=== PATIENT | female | born 1950 | race African-American/Black ===

== ENCOUNTER 2017-01-18 12:17 | Emergency (ER) | payer MEDICARE, OTHER ==
[~2017-01-18] VITALS: Ht 167.6 cm; Wt 59.6 kg
[~2017-01-18 12:17] MED LIST: CIPR500T4 PO; DIAZ5SOL PO; HYDR-3498 PO
[2017-01-18 12:23] VITALS: Ht 167.6 cm; Wt 59.6 kg
[2017-01-18] MEDS ORDERED: traMADol 50 MG TAB PO ONE (15:00)
[2017-01-18 15:18] LABS: ADD UMIC NO; URINE BILIRUBIN (Dip) NEGATIVE (NEGATIVE); URINE BLOOD (Dip) NEGATIVE (NEGATIVE); URINE COLOR YELLOW (YELLOW); URINE GLUCOSE (Dip) NEGATIVE (NEGATIVE); URINE KETONES (Dip) NEGATIVE (NEGATIVE); URINE LEUKOCYTE ESTERASE (Dip) NEGATIVE (NEGATIVE); URINE NITRITE (Dip) NEGATIVE (NEGATIVE); URINE TOTAL PROTEIN (Dip) NEGATIVE (NEGATIVE); URINE UROBILINOGEN (Dip) 1.0 E.U./dL (0.1-1.0)
--- NOTE | 2017-01-18 15:21 | RADRPT ---
PROCEDURE: XR Chest. CLINICAL INDICATION: Chest pain TECHNIQUE: Single frontal view of the chest was obtained. COMPARISON: None FINDINGS: The heart is within normal limits. The thoracic aorta is calcified. There is mild right lower lobe linear atelectasis. The lungs are otherwise clear. There is no pleural effusion or pneumothorax. RPTAT: AA IMPRESSION: No acute disease. Calcified aorta consistent with atherosclerotic disease. Mild right lower lobe linear atelectasis. .Lucien Simpson MD, MD Date Time Electronically viewed and signed by .Lucien Simpson MD, on 01/18/2017 15:20 .S/
[2017-01-18 15:25] LABS: D-DIMER 574.05 ng/ml (<460)
[2017-01-18 17:03] LABS: ADD SCAN DIFF NO
[2017-01-18 17:05] LABS: BASOPHILS % 0.5 % (0.0-2.0); EOSINOPHILS # 0.2 10^3/ul (0.0-0.5); EOSINOPHILS % 2.4 % (0.0-7.0); HEMATOCRIT 42.3 % (37.0-47.0); HEMOGLOBIN 14.3 g/dl (12.0-16.0); LYMPHOCYTES # 2.1 10^3/ul (0.8-2.9); LYMPHOCYTES % 32.2 % (15.0-51.0); MEAN CORPUSCULAR HEMOGLOBIN 31.5 pg (29.0-33.0); MEAN CORPUSCULAR HGB CONC 33.8 g/dl (32.0-37.0); MEAN CORPUSCULAR VOLUME 93.2 fl (82.0-101.0); MEAN PLATELET VOLUME 10.9 fl (7.4-10.4); MONOCYTE # 0.8 10^3/ul (0.3-0.9); MONOCYTES % 12.1 % (0.0-11.0); NEUTROPHIL # 3.5 10^3/ul (1.6-7.5); NEUTROPHILS % 52.6 % (39.0-77.0); PLATELET COUNT 186 10^3/UL (140-415); RED BLOOD COUNT 4.54 10^6/ul (4.20-5.40); RED CELL DISTRIBUTION WIDTH 12.3 % (11.5-14.5); WHITE BLOOD COUNT 6.6 10^3/ul (4.8-10.8)
[2017-01-18 17:27] LABS: ALBUMIN 4.5 g/dl (3.3-4.9); ALBUMIN/GLOBULIN RATIO 1.36; BILIRUBIN,INDIRECT 0.2 mg/dl (0-1.1); BILIRUBIN,TOTAL 0.2 mg/dl (0.2-1.3); CALCIUM 9.2 mg/dl (8.4-10.2); CREATININE 0.73 mg/dl (0.44-1.00); POTASSIUM 4.6 mmol/L (3.5-5.1); TOTAL PROTEIN 7.8 g/dl (6.1-8.1)
--- NOTE | 2017-01-18 17:39 | ERD ---
ER Documentation Chief Complaint Date/Time DATE: 01/18/17 TIME: 17:36 Chief Complaint MID BACK PAIN 8/10 X 4DAYS (АННА JUAREZ PA-C) HPI Patient is a 66-year-old female with a past medical history of hepatitis C and DVT who presents to the ED with left upper back pain that started 1 week ago. She states that the pain has gotten worse. She states it is an 8 out of 10. She states that "I feel I have a clot in my back." She denies shortness of breath or difficulty breathing. She denies headache or dizziness. She states that she has difficulty moving her arms. She feels that there is something inside. Denies bowel or bladder incontinence. Denies trauma. Denies leg pain or leg swelling. Denies recent travel or recent surgeries. (АННА JUAREZ PA-C) ROS All systems reviewed and are negative except as per history of present illness. (АННА JUAREZ PA-C) Medications Home Meds Active Scripts Naproxen* (Naprosyn*) 500 Mg Tablet, 500 MG PO BID Y for PAIN AND/OR INFLAMMATION, #30 TAB Prov:АННА JUAREZ PA-C 01/18/17 Tramadol HCl (Tramadol HCl) 50 Mg Tablet, 50 MG PO Q6 Y for PAIN, #10 TAB Prov:АННА JUAREZ PA-C 01/18/17 Hydrocodone Bit-Acetaminophen* ([place]*) 5-325 Mg Tab, 1 TAB PO Q6 Y for PAIN, # 20 TAB Prov:MAURICIO POWELL DO 11/15/15 Ciprofloxacin Hcl* (Ciprofloxacin Hcl*) 500 Mg Tablet, 500 MG PO BID for 14 Days , TAB Prov:MAURICIO POWELL DO 11/15/15 Reported Medications Diazepam* (Diazepam*) 5 Mg/5 Ml Elixir, 5 MG PO BID, ML 11/15/15 Allergies Allergies: Coded Allergies: Iron Analogues (Verified Allergy, Mild, 11/15/15) PMhx/Soc History of Surgery: Yes (Tubal uterine surgeries) Anesthesia Reaction: No Hx Neurological Disorder: No Hx Respiratory Disorders: No Hx Cardiac Disorders: No Hx Psychiatric Problems: No Hx Miscellaneous Medical Probl: Yes (Hepatitis C) Hx Alcohol Use: No Hx Substance Use: Yes (Past history of cocaine) Hx Tobacco Use: No Smoking Status: Never smoker (АННА JUAREZ PA-C) FmHx Family History: No coronary disease, No diabetes, No other (АННА JUAREZ PA-C) Physical Exam Vitals Vital Signs Date Time Temp Pulse Resp B/P Pulse Ox O2 Delivery O2 Flow Rate FiO2 01/18/17 12:23 98.5 86 18 157/81 98 (MALU ROLON MD) Physical Exam GENERAL: Well-developed, well-nourished female. Appears in mild distress. HEAD: Normocephalic, atraumatic. EYES: Pupils are equally reactive bilaterally. EOMs grossly intact. No conjunctival erythema. ENT: Moist mucous membranes. No uvula deviation. No kissing tonsils. No exudates. NECK: Supple. No lymphadenopathy or thyromegaly. No meningismus. negative kernig. negative brudinski. LUNG: Clear to auscultation bilaterally. No rhonchi, wheezing, rales or coarse breath sounds. HEART: Regular rate and rhythm. No murmurs, rubs or gallops. BACK: No midline tenderness. No spinal or paraspinal tenderness. No step-offs or deformities. No erythema or swelling. Tenderness to the left upper back near T5. Extremities: Equal pulses bilaterally. No peripheral clubbing, cyanosis or edema. No unilateral leg swelling. Negative Homans sign. No palpable cord. NEUROLOGIC: Alert and oriented. Moving all four extremities. 5/5 strength in all extremities. Normal speech. Steady gait. SKIN: Normal color. Warm and dry. No rashes or lesions. Capillary refill < 2 seconds (АННА JUAREZ PA-C) Result Diagram: 01/18/17 1655 01/18/17 1655 Results 24 hrs Laboratory Tests Test 01/18/17 14:38 01/18/17 16:55 D-Dimer 574.05ng/ml D-Dimer Comment Urine Color YELLOW Urine Clarity CLEAR Urine pH 5.5 Urine Specific [place] 1.025 Urine Ketones NEGATIVE Urine Nitrite NEGATIVE Urine Bilirubin NEGATIVE Urine Urobilinogen 1.0 E.U./dL Urine Leukocyte Esterase NEGATIVE Urine Hemoglobin NEGATIVE Urine Glucose NEGATIVE% Urine Total Protein NEGATIVE White Blood Count 6.610^3/ul Red Blood Count 4.5410^6/ul Hemoglobin 14.3g/dl Hematocrit 42.3% Mean Corpuscular Volume 93.2fl Mean Corpuscular Hemoglobin 31.5pg Mean Corpuscular Hemoglobin Concent 33.8g/dl Red Cell Distribution Width 12.3% Platelet Count 67564^3/UL Mean Platelet Volume 10.9fl Neutrophils % 52.6% Lymphocytes % 32.2% Monocytes % 12.1% Eosinophils % 2.4% Basophils % 0.5% Nucleated Red Blood Cells % 0.0/100WBC Neutrophils # 3.510^3/ul Lymphocytes # 2.110^3/ul Monocytes # 0.810^3/ul Eosinophils # 0.210^3/ul Basophils # 0.010^3/ul Nucleated Red Blood Cells # 0.010^3/ul Sodium Level 141mmol/L Potassium Level 4.6mmol/L Chloride Level 107mmol/L Carbon Dioxide Level 28mmol/L Anion Gap 11 Blood Urea Nitrogen 26mg/dl Creatinine 0.73mg/dl Glucose Level 99mg/dl Calcium Level 9.2mg/dl Total Bilirubin 0.2mg/dl Direct Bilirubin 0.00mg/dl Indirect Bilirubin 0.2mg/dl Aspartate Amino Transf (AST/SGOT) 134IU/L Alanine Aminotransferase (ALT/SGPT) 123IU/L Alkaline Phosphatase 62IU/L Total Protein 7.8g/dl Albumin 4.5g/dl Globulin 3.30g/dl Albumin/Globulin Ratio 1.36 Current Medications Medications (Trade) Dose Ordered Sig/Rosangela Route PRN Reason Start Time Stop Time Status Last Admin Dose Admin Tramadol HCl (Ultram) 50 mg ONCE ONCE PO 01/18/17 15:00 01/18/17 15:01 DC 01/18/17 14:39 IV Flush 10 ml 10 ml STK-MED ONCE .ROUTE 01/18/17 17:55 01/18/17 17:56 DC 01/18/17 18:24 Sodium Chloride 100 ml @ ud STK-MED ONCE .ROUTE 01/18/17 17:55 01/18/17 17:56 DC Iohexol (Omnipaque) 100 ml @ ud STK-MED ONCE .ROUTE 01/18/17 17:55 01/18/17 17:56 DC 01/18/17 18:24 Iohexol (Omnipaque 350mg/ ml) 50 ml STK-MED ONCE .ROUTE 01/18/17 17:56 01/18/17 17:57 DC (MALU ROLON MD) Procedures/MDM ER COURSE: I kept the patient and/or family informed of laboratory and diagnostic imaging results throughout the emergency room course. IMAGING STUDIES [place] [address] Radiology Main Line: [phone] DIAGNOSTIC IMAGING REPORT Patient: REBECCA ALFRED : 1950 Age: 66 Sex: F MR #: [id number] DOS: 01/18/17 1420 Ordering MD: АННА JUAREZ PA-C Location: [facility] Room/Bed: PROCEDURE: XR Chest. CLINICAL INDICATION: Chest pain TECHNIQUE: Single frontal view of the chest was obtained. COMPARISON: None FINDINGS: The heart is within normal limits. The thoracic aorta is calcified. There is mild right lower lobe linear atelectasis. The lungs are otherwise clear. There is no pleural effusion or pneumothorax. RPTAT: AA IMPRESSION: No acute disease. Calcified aorta consistent with atherosclerotic disease. Mild right lower lobe linear atelectasis. .Lucien Simpson MD, MD Date Time Electronically viewed and signed by .Lucien Simpson MD, MD on 01/18/2017 15: 20 .S/ CC: АННА JUAREZ PA-C MEDICAL DECISION MAKING: This is a 66-year-old female who presents with back pain 1 week. Vital signs were reviewed. Patient is afebrile. Patient is not hypoxic. Patient is nontoxic or ill-appearing. I consulted with my supervising physician and based on patient's risk factor and prior history of DVT, a CT chest angiogram was ordered. Pending results. I will be in the patient to my supervising physician who will review all imaging studies. At this point, patient likely has a thoracic strain. Low suspicion for cauda equine syndrome, spinal epidural hematoma, spinal epidural abscess, osteomyelitis, fracture, aortic dissection, AAA, pyelonephritis, nephrolithiasis, septic stone, obstructed stone, PE. (АННА JUAREZ PA-C) Patient signed out to me for upper back pain with history of DVT. D-dimer was mildly elevated. CT angiogram of the chest was incomplete due to patient unable to tolerate. No effusions or infiltrates seen on limited bridge construction inspector exam. Patient has a d-dimer which is only mildly elevated. My suspicion for pulmonary embolism is low given location and no other physical findings or abnormalities on exam. She may have musculoskeletal strain will be treated for this. . The patient was stable with no new complaints during the ER course. Clinically, there is no current evidence to suggest meningitis, sepsis, acute abdomen, pneumonia, acute coronary syndrome, pulmonary embolism, or any other emergent condition appearing to require further evaluation or hospitalization. The patient should certainly return for any new or worsening symptoms per the aftercare instructions. They should otherwise follow-up with her primary care doctor for reevaluation this week. (MALU ROLON MD) Departure Diagnosis: Primary Impression: Thoracic back pain Chronicity: acute Back pain laterality: left Qualified Code: M54.6 - Acute left-sided thoracic back pain Condition: Stable АННА JUAREZ PA-C Jan 18, 2017 17:39 MALU ROLON MD Jan 18, 2017 18:32
[2017-01-18] MEDS ORDERED: SOD CHLORIDE 0.9% 100 ML ONE (17:55)
[2017-01-18] MEDS ORDERED: IOHEXOL 100 ML ONE (17:55)
[2017-01-18] MEDS ORDERED: IOHEXOL 350MG/ML 50 ML BTL ONE (17:56)
[2017-01-18] MEDS ORDERED: TRAM50TA2 PO ×2 (18:00→18:01)
[2017-01-18] MEDS ORDERED: NAPR-260 PO (18:03)
--- NOTE | 2017-01-18 18:26 | RADRPT ---
PROCEDURE: CTA Chest with contrast and with 3-D reconstructions CLINICAL INDICATION: back pain TECHNIQUE: Only headline writer images were obtained as the patient refused to continue with the exam during the administration of intravenous contrast. DLP 5.28 mGycm CTDIvol 1.76, 8.80 mGy COMPARISON: No prior studies are available for comparison. FINDINGS: The aortic arch is calcified. Heart size is within normal limits. No focal consolidations are identified in the lungs. There is no significant pleural effusion or pneumothorax. The visualized osseous and soft tissue structures are unremarkable. IMPRESSION: Limited exam of only the headline writer images, as above. Aortic atherosclerosis. No focal lung infiltrates or effusions. RPTAT: EE Physician Janett Date Time Electronically viewed and signed by Efrain Almazan Physician on 01/18/2017 18:26 /
[2017-01-18] MEDS ORDERED: DIAZ-90 PO (18:34)
[2017-01-18 18:50] VITALS: BP 119/89; PULSE 89; RESP 16
== END 2017-01-18 18:51 | disposition home or self-care (01) ==
LOC: FTE 12:17
DX: M54.6 Pain in thoracic spine (principal)
CPT/HCPCS: 71010; 71275; 80053; 81003; 85025; 85378; 99285; Q9967

== ENCOUNTER 2017-03-02 09:54 | Emergency (ER) | payer MEDICARE, OTHER ==
[~2017-03-02] VITALS: Ht 162.6 cm; Wt 60.0 kg
[~2017-03-02 09:54] MED LIST changes: +DIAZ-90 PO; +NAPR-260 PO; +TRAM50TA2 PO
[2017-03-02 10:00] VITALS: Ht 162.6 cm; Wt 60.0 kg
[2017-03-02] MEDS ORDERED: KETOROLAC 30 MG INJ IV STA (10:39)
[2017-03-02] MEDS ORDERED: HYDROmorphONE 1 MG/ML SYG IV STA (10:39)
[2017-03-02 11:15] LABS: ADD SCAN DIFF NO
[2017-03-02 11:21] LABS: BASOPHILS % 0.4 % (0.0-2.0); EOSINOPHILS # 0.1 10^3/ul (0.0-0.5); EOSINOPHILS % 1.3 % (0.0-7.0); HEMATOCRIT 42.9 % (37.0-47.0); HEMOGLOBIN 14.5 g/dl (12.0-16.0); LYMPHOCYTES # 1.9 10^3/ul (0.8-2.9); LYMPHOCYTES % 24.5 % (15.0-51.0); MEAN CORPUSCULAR HEMOGLOBIN 31.9 pg (29.0-33.0); MEAN CORPUSCULAR HGB CONC 33.8 g/dl (32.0-37.0); MEAN CORPUSCULAR VOLUME 94.5 fl (82.0-101.0); MEAN PLATELET VOLUME 11.6 fl (7.4-10.4); MONOCYTES % 12.2 % (0.0-11.0); NEUTROPHIL # 4.8 10^3/ul (1.6-7.5); NEUTROPHILS % 61.5 % (39.0-77.0); PLATELET COUNT 163 10^3/UL (140-415); RED BLOOD COUNT 4.54 10^6/ul (4.20-5.40); WHITE BLOOD COUNT 7.8 10^3/ul (4.8-10.8)
--- NOTE | 2017-03-02 11:31 | RADRPT ---
PROCEDURE: XR Chest. CLINICAL INDICATION: Shortness of breath. Back pain. TECHNIQUE: Single frontal view. COMPARISON: 01/18/2017. FINDINGS: There is mild interstitial disease bilaterally in the mid and lower lung zones consistent with pulmo nary edema. The lungs are otherwise clear. The heart size is normal. There is calcification in the aorta consistent with atherosclerosis. There is no pleural effusion. There is no pneumothorax. IMPRESSION: 1. Mild pulmonary edema. 2. Atherosclerosis. 3. Otherwise normal chest x-ray. RPTAT: QQ .Alberto Goel MD, MD Date Time Electronically viewed and signed by .Alberto Goel MD, MD on 03/02/2017 11:30 .R/
[2017-03-02 12:00] LABS: ALANINE AMINOTRANSFERASE 91 IU/L (13-69); ALBUMIN 4.3 g/dl (3.3-4.9); ALBUMIN/GLOBULIN RATIO 1.26; ALKALINE PHOSPHATASE 58 IU/L (42-121); ANION GAP 17 (8-16); ASPARTATE AMINO TRANSFERASE 97 IU/L (15-46); BILIRUBIN,INDIRECT 0.2 mg/dl (0-1.1); BILIRUBIN,TOTAL 0.2 mg/dl (0.2-1.3); BLOOD UREA NITROGEN 17 mg/dl (7-20); CALCIUM 9.8 mg/dl (8.4-10.2); CARBON DIOXIDE 30 mmol/L (21-31); CHLORIDE 98 mmol/L (97-110); CREATININE 0.79 mg/dl (0.44-1.00); GLUCOSE 71 mg/dl (70-220); POTASSIUM 4.2 mmol/L (3.5-5.1); SODIUM 141 mmol/L (135-144); TOTAL PROTEIN 7.7 g/dl (6.1-8.1)
[2017-03-02 12:04] LABS: INR 1.04; PARTIAL THROMBOPLASTIN TIME 29.6 Sec (25.0-35.0); PROTIME 13.6 Sec (12.2-14.2); PT RATIO 1.1
[2017-03-02 12:11] LABS: TROPONIN-I < 0.012 ng/ml (0.00-0.12)
[2017-03-02 12:52] LABS: URINE BLOOD (Dip) POC Negative (NEGATIVE)
[2017-03-02 13:03] LABS: ADD UMIC NO; UR BILIRUBIN (Dip) NEGATIVE (NEGATIVE); UR BLOOD (Dip) NEGATIVE (NEGATIVE); UR CLARITY CLEAR (CLEAR); UR COLOR YELLOW (YELLOW); UR GLUCOSE (Dip) NEGATIVE (NEGATIVE); UR KETONES (Dip) NEGATIVE (NEGATIVE); UR LEUKOCYTE ESTERASE (Dip) NEGATIVE (NEGATIVE); UR NITRITE (Dip) NEGATIVE (NEGATIVE); UR TOTAL PROTEIN (Dip) NEGATIVE (NEGATIVE); UR UROBILINOGEN (Dip) 1.0 E.U./dL (0.1-1.0)
[2017-03-02] MEDS ORDERED: IBUP-1542 PO (13:30)
[2017-03-02] MEDS ORDERED: IOHEXOL 100 ML ONE (14:03)
[2017-03-02] MEDS ORDERED: SOD CHLORIDE 0.9% 100 ML ONE (14:03)
[2017-03-02 15:13] VITALS: BP 167/72; PULSE 76; RESP 20; TEMP 97.1
--- NOTE | 2017-03-02 16:19 | RADRPT ---
PROCEDURE: CTA Chest, abdomen and pelvis.. CLINICAL INDICATION: eval for PE pain. TECHNIQUE: The study was performed utilizing a multidetector CT scanner. Direct spiral 1 mm axial sections were obtained from the thoracic inlet to the proximal thighs with the use of 100 cc of Omni paque 350 nonionic intravenous contrast material and reformatted at 3 mm. Coronal, sagittal and 3-D angiographic reformations were obtained. The images were reviewed on a PACS workstation. CT D I 49 mCi. Dose 480 mCi per centimeter COMPARISON: CT pulmonary angiogram January 18, 2017. FINDINGS: Chest: There is no central or peripheral pulmonary embolism. Thoracic aorta is normal with no diss ection or aneurysm. No hilar or mediastinal adenopathy or masses seen. There is no pleural or conchita cardial effusion. No pneumothorax is detected. There is central lobular emphysema. No infiltrate or mass is seen. There are no nodules. Plate-like atelectasis or minor linear fibrosis is present in the right middle lobe. The osseous structures are intact. Abdomen pelvis: The liver is of normal size and contour. There is fatty infiltration. No mass or i ntrahepatic ductal dilatation is seen. Common bile duct measures 11 mm in transverse plane. No sto cosmo are identified. No splenic or adrenal abnormality is present. No pancreatic mass is present. There is diffuse pancreatic ductal dilatation measuring 6 mm in diameter. Kidneys enhance symmetric ally. No hydronephrosis, calculus or masses present. Ureters are of normal course and caliber with no stone. No bladder masses stone is seen. Atrophic postmenopausal uterus and ovaries are normal. There is no aneurysm. No dissection is seen. Iliac and external iliac arteries are of normal cours e and caliber. There is no adenopathy. No bowel mass or obstruction is present. The appendix is normal. There is no phlegmon, ascites or pneumoperitoneum. The osseous structures are normal. Lower extremities: Visualized portion of the common femoral artery, superficial femoral artery and profunda artery on the right and left is normal. No aneurysm is seen and there is no arteriovenous malformation or fistula. IMPRESSION: Normal CT pulmonary angiogram with no evidence of pulmonary embolism, aortic dissection or aneurysm. No pneumonia. Plate-like atelectasis or minor linear fibrosis right middle lobe. Normal CT angiogram abdomen, pelvis and both lower extremities. No aneurysm or dissection. No vasc ular abnormality. No extravasation. Fatty liver. Extrahepatic bile duct dilatation and pancreatic ductal dilatation. No pancreatic mass or stone vis ualized. Question recent passage of stone versus stricture versus occult mass. Suggest correlation with liver function tests as well as serum lipase and amylase. Follow-up is recommended. .Gómez Gross MD, MD Date Time Electronically viewed and signed by .Gómez Gross MD, MD on 03/02/2017 16:19 .A/
[2017-03-16 16:18] LABS: URINE BLOOD (Dip) POC Negative (NEGATIVE)
--- NOTE | 2017-03-27 16:36 | ERD ---
ER Documentation Chief Complaint Date/Time DATE: 03/27/17 TIME: 16:26 Chief Complaint BIB RA FOR EVAL OF NON TRAUMATIC BACK PAIN X 2 WEEKS. HPI 66 year old female with history of Hep C presenting with 2 weeks of worsening back pain, 10/10, nonradiating in the lower back. No nausea, vomiting, diarrhea , fevers, chills, IVDU. No history of cancer. ROS All systems reviewed and are negative except as per history of present illness. Medications Home Meds Active Scripts Ibuprofen* (Motrin*) 600 Mg Tab, 600 MG PO Q6H Y for PAIN AND OR ELEVATED TEMP, #30 TAB Prov:CECILIA AGUIRRE MD 03/02/17 Diazepam* (Valium*) 5 Mg Tablet, 5 MG PO Q8, #15 TAB Prov:MALU ROLON MD 01/18/17 Naproxen* (Naprosyn*) 500 Mg Tablet, 500 MG PO BID Y for PAIN AND/OR INFLAMMATION, #30 TAB Prov:АННА JUAREZ PA-C 01/18/17 Tramadol HCl (Tramadol HCl) 50 Mg Tablet, 50 MG PO Q6 Y for PAIN, #10 TAB Prov:АННА JUAREZ PA-C 01/18/17 Hydrocodone Bit-Acetaminophen* ([place]*) 5-325 Mg Tab, 1 TAB PO Q6 Y for PAIN, # 20 TAB Prov:MAURICIO POWELL DO 11/15/15 Ciprofloxacin Hcl* (Ciprofloxacin Hcl*) 500 Mg Tablet, 500 MG PO BID for 14 Days , TAB Prov:MAURICIO POWELL DO 11/15/15 Reported Medications Diazepam* (Diazepam*) 5 Mg/5 Ml Elixir, 5 MG PO BID, ML 11/15/15 Allergies Allergies: Coded Allergies: Iron Analogues (Verified Allergy, Mild, 11/15/15) PMhx/Soc History of Surgery: Yes (Tubal uterine surgeries) Anesthesia Reaction: No Hx Neurological Disorder: No Hx Respiratory Disorders: No Hx Cardiac Disorders: No Hx Psychiatric Problems: No Hx Miscellaneous Medical Probl: Yes (Hepatitis C) Hx Alcohol Use: No Hx Substance Use: Yes (Past history of cocaine) Hx Tobacco Use: No Physical Exam Physical Exam Const: distress secondary to pain Head: Atraumatic Eyes: Normal Conjunctiva ENT: Normal External Ears, Nose and Mouth. Neck: Full range of motion..~ No meningismus. Resp: Clear to auscultation bilaterally Cardio: Regular rate and rhythm, no murmurs, 2+ distal pulses Abd: Soft, non tender, non distended. Normal bowel sounds Skin: No petechiae or rashes Back: No midline or flank tenderness Ext: No cyanosis, or edema Neur: Awake and alert, strength and sensations grossly intact Psych: Normal Mood and Affect Results 24 hrs Laboratory Tests Test 03/02/17 11:01 03/02/17 12:23 03/02/17 12:57 White Blood Count 7.810^3/ul Red Blood Count 4.5410^6/ul Hemoglobin 14.5g/dl Hematocrit 42.9% Mean Corpuscular Volume 94.5fl Mean Corpuscular Hemoglobin 31.9pg Mean Corpuscular Hemoglobin Concent 33.8g/dl Red Cell Distribution Width 12.0% Platelet Count 32801^3/UL Mean Platelet Volume 11.6fl Neutrophils % 61.5% Lymphocytes % 24.5% Monocytes % 12.2% Eosinophils % 1.3% Basophils % 0.4% Nucleated Red Blood Cells % 0.0/100WBC Neutrophils # 4.810^3/ul Lymphocytes # 1.910^3/ul Monocytes # 1.010^3/ul Eosinophils # 0.110^3/ul Basophils # 0.010^3/ul Nucleated Red Blood Cells # 0.010^3/ul Prothrombin Time 13.6Sec Prothrombin Time Ratio 1.1 INR International Normalized Ratio 1.04 Activated Partial Thromboplast Time 29.6Sec Sodium Level 141mmol/L Potassium Level 4.2mmol/L Chloride Level 98mmol/L Carbon Dioxide Level 30mmol/L Anion Gap 17 Blood Urea Nitrogen 17mg/dl Creatinine 0.79mg/dl Glucose Level 71mg/dl Calcium Level 9.8mg/dl Total Bilirubin 0.2mg/dl Direct Bilirubin 0.00mg/dl Indirect Bilirubin 0.2mg/dl Aspartate Amino Transf (AST/SGOT) 97IU/L Alanine Aminotransferase (ALT/SGPT) 91IU/L Alkaline Phosphatase 58IU/L Troponin I < 0.012ng/ml Total Protein 7.7g/dl Albumin 4.3g/dl Globulin 3.40g/dl Albumin/Globulin Ratio 1.26 Lipase 180U/L Urine Color YELLOW Urine Clarity CLEAR Urine pH 6.0 Urine Specific [place] 1.020 Urine Ketones NEGATIVE Urine Nitrite NEGATIVE Urine Bilirubin NEGATIVE Urine Urobilinogen 1.0 E.U./dL Urine Leukocyte Esterase NEGATIVE Urine Hemoglobin NEGATIVE Urine Glucose NEGATIVE% Urine Total Protein NEGATIVE Bedside Urine pH (LAB) 6.5 Bedside Urine Protein (LAB) Negative Bedside Urine Glucose (UA) Negative Bedside Urine Ketones (LAB) Negative Bedside Urine Blood Negative Bedside Urine Nitrite (LAB) Negative Bedside Urine Leukocyte Esterase (L Negative Current Medications Medications (Trade) Dose Ordered Sig/Rosangela Route PRN Reason Start Time Stop Time Status Last Admin Dose Admin Hydromorphone HCl (Dilaudid) 1 mg ONCE STAT IV 03/02/17 10:39 03/02/17 10:41 DC 03/02/17 11:15 Ketorolac Tromethamine (Toradol) 30 mg ONCE STAT IV 03/02/17 10:39 03/02/17 10:41 DC 03/02/17 11:16 IV Flush 10 ml 10 ml STK-MED ONCE .ROUTE 03/02/17 14:03 03/02/17 14:04 DC Sodium Chloride 100 ml @ ud STK-MED ONCE .ROUTE 03/02/17 14:03 03/02/17 14:04 DC Iohexol (Omnipaque) 100 ml @ ud STK-MED ONCE .ROUTE 03/02/17 14:03 03/02/17 14:04 DC Procedures/MDM EKG: Normal sinus rhythm normal intervals, poor R wave progression No acute ischemia, arrhythmia or STEMI Labs: only significant for mild transaminitis CXR: mild pulmonary vascular congestion MDM The patient is neurovascularly intact on exam with unremarkable vitals. I have a low suspicion for spinal tumor as the patient has no history of cancer, night sweats, or weight loss. I have a low suspicion for bone or disc infection, cauda equina, cord compression, acute spinal fracture, or abscess. CTA of chest and abdomen/pelvis ordered to evaluate for possible dissection given age and history of cocaine use. If normal, I believe the patient is stable for continued outpatient follow up with their PCP. Patient signed out to oncoming ED physician pending CTA. Departure Diagnosis: Primary Impression: Back pain Back pain location: low back pain Chronicity: unspecified Back pain laterality: bilateral Sciatica presence: unspecified whether sciatica present Qualified Code: M54.5 - Bilateral low back pain, unspecified chronicity, with sciatica presence unspecified Condition: Stable Patient Instructions: Back Pain (Acute Or Chronic) Referrals: RAMIREZ KIM MD (PCP) Additional Instructions: Follow-up with your primary care doctor in the next 1-2 days. CECILIA AGUIRRE MD Mar 27, 2017 16:36
== END 2017-03-02 16:45 | disposition left against medical advice (07) ==
LOC: E/R 09:54
DX: M54.5 Low back pain (principal); R06.02 Shortness of breath
CPT/HCPCS: 36415; 71010; 71275; 75635; 80053; 81003; 83690; 84484; 85025; 85610; 85730; 93005; 96374; 96375; 99285; J1170; J1885; Q9967

== ENCOUNTER 2017-05-14 00:25 | Emergency (ER) | payer MEDICARE, OTHER ==
[~2017-05-14] VITALS: Ht 172.7 cm; Wt 59.1 kg
[~2017-05-14 00:25] MED LIST changes: +IBUP-1542 PO
[2017-05-14 00:52] VITALS: Ht 172.7 cm; Wt 59.1 kg
[2017-05-14] MEDS ORDERED: morphine 4 MG/ML VIAL IV STA (01:36)
[2017-05-14] MEDS ORDERED: ONDANSETRON 4 MG INJ IV STA ×2 (01:36→04:26)
[2017-05-14 02:27] LABS: BASOPHIL # 0.1 10^3/ul (0.0-0.1); BASOPHILS % 0.6 % (0.0-2.0); EOSINOPHILS % 0.1 % (0.0-7.0); HEMATOCRIT 44.6 % (37.0-47.0); HEMOGLOBIN 15.3 g/dl (12.0-16.0); LYMPHOCYTES # 1.4 10^3/ul (0.8-2.9); LYMPHOCYTES % 15.4 % (15.0-51.0); MEAN CORPUSCULAR HEMOGLOBIN 31.9 pg (29.0-33.0); MEAN CORPUSCULAR HGB CONC 34.3 g/dl (32.0-37.0); MEAN CORPUSCULAR VOLUME 93.1 fl (82.0-101.0); MEAN PLATELET VOLUME 11.1 fl (7.4-10.4); MONOCYTE # 0.3 10^3/ul (0.3-0.9); MONOCYTES % 3.7 % (0.0-11.0); NEUTROPHIL # 7.1 10^3/ul (1.6-7.5); NEUTROPHILS % 79.9 % (39.0-77.0); PLATELET COUNT 235 10^3/UL (140-415); RED BLOOD COUNT 4.79 10^6/ul (4.20-5.40); RED CELL DISTRIBUTION WIDTH 11.8 % (11.5-14.5); WHITE BLOOD COUNT 8.9 10^3/ul (4.8-10.8)
--- NOTE | 2017-05-14 02:46 | RADRPT ---
PROCEDURE: XR Chest. CLINICAL INDICATION: Abdominal pain. TECHNIQUE: Single frontal view of the chest. COMPARISON: None. FINDINGS: The cardiomediastinal silhouette is within normal limits. Atherosclerotic calcifications in the thor acic aorta. Hyperinflation of COPD in changes of centrolobular emphysema. The lungs are clear. No si gns of pleural fluid or pneumothorax are seen. The osseous structures and soft tissues are unremarka ble. IMPRESSION: No evidence for active cardiopulmonary disease. RPTAT: UU Physician Annalisa Date Time Electronically viewed and signed by Physician Annalisa on 05/14/2017 02:45 RS/
[2017-05-14 02:50] LABS: ALANINE AMINOTRANSFERASE 73 IU/L (13-69); ALBUMIN 4.4 g/dl (3.3-4.9); ALBUMIN/GLOBULIN RATIO 0.97; ALKALINE PHOSPHATASE 84 IU/L (42-121); ANION GAP 14 (8-16); ASPARTATE AMINO TRANSFERASE 69 IU/L (15-46); BILIRUBIN,INDIRECT 0.3 mg/dl (0-1.1); BILIRUBIN,TOTAL 0.3 mg/dl (0.2-1.3); BLOOD UREA NITROGEN 17 mg/dl (7-20); CALCIUM 9.5 mg/dl (8.4-10.2); CARBON DIOXIDE 29 mmol/L (21-31); CHLORIDE 102 mmol/L (97-110); CREATININE 0.82 mg/dl (0.44-1.00); GLUCOSE 225 mg/dl (70-220); POTASSIUM 3.8 mmol/L (3.5-5.1); SODIUM 141 mmol/L (135-144); TOTAL PROTEIN 8.9 g/dl (6.1-8.1)
[2017-05-14 03:02] LABS: TROPONIN-I < 0.012 ng/ml (0.00-0.12)
[2017-05-14] MEDS ORDERED: LIDOCAINE/MYLANTA 40 ML BTL PO STA (03:35)
[2017-05-14] MEDS ORDERED: LIDOCAINE/MYLANTA 40 ML BTL ONE (03:40)
--- NOTE | 2017-05-14 03:45 | RADRPT ---
PROCEDURE: CT abdomen and pelvis without contrast. CLINICAL INDICATION: Abdominal Pain TECHNIQUE: Noncontrast CT examination of the abdomen and pelvis, with axial, sagittal and coronal re formatted images. CTDI: 7.77 mGy and DLP: 441.79 mGy-cm. COMPARISON: CT chest, abdomen and pelvis dated 03/02/2017 FINDINGS: CT abdomen: The lung bases are clear. The heart size is normal, without pericardial thickening or effusion. Mi ld hiatal hernia. The liver is normal in size and density without focal mass or intrahepatic biliary dilatation. The spleen is normal in size and homogeneous in density. The stomach is partially collapsed, but is christine ssly unremarkable. The pancreas as visualized is normal. The gallbladder and biliary tree are unre markable and there is no evidence for biliary dilatation. The adrenal glands are symmetric and norm al. The kidneys are symmetrically unremarkable as well. No renal calculus or obstructive uropathy o r mass lesion is seen. The aorta is of normal caliber. Aortic vascular calcifications are present. There is no retroperit garcia lymphadenopathy. The eula hepatis region is clear. The bowel and mesentery, as visualized, are equally unremarkable. CT pelvis: The small bowel loops situated within the pelvis are unremarkable. The pelvic organs are normal. T he pelvic sidewalls and inguinal regions are clear. The sigmoid colon and rectum are all unremarkab le. No mass, lymphadenopathy, or free fluid is seen. No acute inflammation is seen. The appendix is unremarkable. The surrounding osseous structures are remarkable for mild degenerative spondylosis of the spine. N o osteolytic or osteoblastic lesion is detected. IMPRESSION: Unremarkable CT scan of the abdomen and pelvis. RPTAT: [facility] Physician Annalisa Date Time Electronically viewed and signed by Physician Annalisa on 05/14/2017 03:45 RS/
[2017-05-14] MEDS ORDERED: CEPH500C PO (03:50)
[2017-05-14 04:15] LABS: ADD UMIC NO; UR ASCORBIC ACID 40 mg/dL (NEGATIVE); UR BACTERIA FEW /HPF (NONE SEEN); UR BILIRUBIN (Dip) NEGATIVE (NEGATIVE); UR BLOOD (Dip) NEGATIVE (NEGATIVE); UR CLARITY SLIGHTLY CLOUDY (CLEAR); UR COLOR YELLOW (YELLOW); UR GLUCOSE (Dip) NEGATIVE (NEGATIVE); UR KETONES (Dip) NEGATIVE (NEGATIVE); UR LEUKOCYTE ESTERASE (Dip) NEGATIVE Leu/ul (NEGATIVE); UR NITRITE (Dip) NEGATIVE (NEGATIVE); UR RBC 1 /HPF (0-5); UR SPECIFIC GRAVITY (Dip) 1.023 (1.003-1.030); UR TOTAL PROTEIN (Dip) NEGATIVE (NEGATIVE); UR UROBILINOGEN (Dip) 2+ mg/dL (NEGATIVE)
--- NOTE | 2017-05-14 05:19 | ERD ---
ER Documentation Chief Complaint Date/Time DATE: 05/14/17 TIME: 05:17 Chief Complaint LQ AP SINCE 6PM LAST NIGHT. +N/V HPI This is a 66-year-old female comes in with lower quadrant abdominal pain since 6 PM last night. She says she has been nauseous and had 2 episodes of vomiting. Vomiting is nonbilious and nonbloody. Pain is mild to moderate intensity no no exacerbating or alleviating factors. It has been going on for the past 2 days pain tends lasting less than 15 minutes. She denies that she has had similar pain like this in the past but has not gone to physician for proper diagnosis ROS All systems reviewed and are negative except as per history of present illness. Medications Home Meds Reported Medications Cephalexin* (Cephalexin*) 500 Mg Capsule, 500 MG PO Q8, #21 CAP TK ONE CAP PO TID FOR 10 DAYS 05/14/17 Discontinued Reported Medications Diazepam* (Diazepam*) 5 Mg/5 Ml Elixir, 5 MG PO BID, ML 11/15/15 Discontinued Scripts Ibuprofen* (Motrin*) 600 Mg Tab, 600 MG PO Q6H Y for PAIN AND OR ELEVATED TEMP, #30 TAB Prov:CECILIA AGUIRRE MD 03/02/17 Diazepam* (Valium*) 5 Mg Tablet, 5 MG PO Q8, #15 TAB Prov:AMLU ROLON MD 01/18/17 Naproxen* (Naprosyn*) 500 Mg Tablet, 500 MG PO BID Y for PAIN AND/OR INFLAMMATION, #30 TAB Prov:АННА JUAREZ PA-C 01/18/17 Tramadol HCl (Tramadol HCl) 50 Mg Tablet, 50 MG PO Q6 Y for PAIN, #10 TAB Prov:АННА JUAREZ PA-C 01/18/17 Hydrocodone Bit-Acetaminophen* ([place]*) 5-325 Mg Tab, 1 TAB PO Q6 Y for PAIN, # 20 TAB Prov:MAURICIO POWELL DO 11/15/15 Ciprofloxacin Hcl* (Ciprofloxacin Hcl*) 500 Mg Tablet, 500 MG PO BID for 14 Days , TAB Prov:MAURICIO POWELL DO 11/15/15 Allergies Allergies: Coded Allergies: Iron Analogues (Unverified Allergy, Mild, 05/14/17) PMhx/Soc History of Surgery: Yes (Tubal uterine surgeries, hand surgery) Anesthesia Reaction: No Hx Neurological Disorder: No Hx Respiratory Disorders: No Hx Cardiac Disorders: No Hx Psychiatric Problems: No Hx Miscellaneous Medical Probl: Yes (Hepatitis C) Hx Alcohol Use: No Hx Substance Use: Yes (Past history of cocaine) Hx Tobacco Use: Yes Smoking Status: Current every day smoker Physical Exam Vitals Vital Signs Date Time Temp Pulse Resp B/P Pulse Ox O2 Delivery O2 Flow Rate FiO2 05/14/17 00:52 97.4 64 20 151/71 100 Physical Exam Const: [] Head: Atraumatic Eyes: Normal Conjunctiva ENT: Normal External Ears, Nose and Mouth. Neck: Full range of motion..~ No meningismus. Resp: Clear to auscultation bilaterally Cardio: Regular rate and rhythm, no murmurs Abd: Soft, non tender, non distended. Normal bowel sounds Skin: No petechiae or rashes Back: No midline or flank tenderness Ext: No cyanosis, or edema Neur: Awake and alert Psych: Normal Mood and Affect Result Diagram: 05/14/17 0155 05/14/17 0155 Results 24 hrs Laboratory Tests Test 05/14/17 01:55 05/14/17 03:45 White Blood Count 8.910^3/ul Red Blood Count 4.7910^6/ul Hemoglobin 15.3g/dl Hematocrit 44.6% Mean Corpuscular Volume 93.1fl Mean Corpuscular Hemoglobin 31.9pg Mean Corpuscular Hemoglobin Concent 34.3g/dl Red Cell Distribution Width 11.8% Platelet Count 67626^3/UL Mean Platelet Volume 11.1fl Neutrophils % 79.9% Lymphocytes % 15.4% Monocytes % 3.7% Eosinophils % 0.1% Basophils % 0.6% Nucleated Red Blood Cells % 0.0/100WBC Neutrophils # 7.110^3/ul Lymphocytes # 1.410^3/ul Monocytes # 0.310^3/ul Eosinophils # 0.010^3/ul Basophils # 0.110^3/ul Nucleated Red Blood Cells # 0.010^3/ul Sodium Level 141mmol/L Potassium Level 3.8mmol/L Chloride Level 102mmol/L Carbon Dioxide Level 29mmol/L Anion Gap 14 Blood Urea Nitrogen 17mg/dl Creatinine 0.82mg/dl Glucose Level 225mg/dl Calcium Level 9.5mg/dl Total Bilirubin 0.3mg/dl Direct Bilirubin 0.00mg/dl Indirect Bilirubin 0.3mg/dl Aspartate Amino Transf (AST/SGOT) 69IU/L Alanine Aminotransferase (ALT/SGPT) 73IU/L Alkaline Phosphatase 84IU/L Troponin I < 0.012ng/ml Total Protein 8.9g/dl Albumin 4.4g/dl Globulin 4.50g/dl Albumin/Globulin Ratio 0.97 Lipase 176U/L Urine Color YELLOW Urine Clarity SLIGHTLY CLOUDY Urine pH 7.0 Urine Specific [place] 1.023 Urine Ketones NEGATIVEmg/dL Urine Nitrite NEGATIVEmg/dL Urine Bilirubin NEGATIVEmg/dL Urine Urobilinogen 2+mg/dL Urine Leukocyte Esterase NEGATIVELeu/ul Urine Microscopic RBC 1/HPF Urine Microscopic WBC 3/HPF Urine Bacteria FEW/HPF Urine Hemoglobin NEGATIVEmg/dL Urine Glucose NEGATIVEmg/dL Urine Total Protein NEGATIVEmg/dl Current Medications Medications (Trade) Dose Ordered Sig/Rosangela Route PRN Reason Start Time Stop Time Status Last Admin Dose Admin Morphine Sulfate (morphine) 4 mg ONCE STAT IV 05/14/17 01:36 05/14/17 01:38 DC 05/14/17 01:55 Ondansetron HCl (Zofran Inj) 4 mg ONCE STAT IV 05/14/17 01:36 05/14/17 01:38 DC 05/14/17 01:55 Miscellaneous Medication (Gi Cocktail (2)) 40 ml ONCE STAT PO 05/14/17 03:35 05/14/17 03:48 DC 05/14/17 04:15 Miscellaneous Medication (Gi Cocktail (2)) 40 ml STK-MED ONCE .ROUTE 05/14/17 03:40 05/14/17 03:41 DC Ondansetron HCl (Zofran Inj) 4 mg ONCE STAT IV 05/14/17 04:26 05/14/17 04:47 DC 05/14/17 04:59 Procedures/MDM EKG: Rate/Rhythm: [Normal Sinus Rhythm] QRS, ST, T-waves: [No changes consistent w/ acute ischemia] Impression: [No evidence of ischemia or arrhythmia] Chest X-ray 1V Interpreted by me: Soft Tissue: No acute abnormalities Bones: No acute abnormalities Mediastinum/Cardiac Silhouette/Lungs: [No acute abnormalities] Medical decision-making: This is a 66-year-old female with abdominal pain and undifferentiated. Pain is since resolved. At this point she is clinically stable for fusion. She is to return in 8 hours for serial abdominal examinations Departure Diagnosis: Primary Impression: Abdominal pain Abdominal location: generalized Qualified Code: R10.84 - Generalized abdominal pain Condition: Stable ASPEN LLAMAS May 14, 2017 05:19
[2017-05-14] MEDS ORDERED: TRAM50TA2 PO (05:21)
[2017-05-14] MEDS ORDERED: FAMOTIDINE 20 MG INJ ONE (05:27)
[2017-05-14] MEDS ORDERED: FAMOTIDINE 20 MG INJ IV ONE (05:30)
[2017-05-14 05:31] VITALS: BP 149/102; PULSE 64; RESP 18; TEMP 97.3
== END 2017-05-14 05:41 | disposition home or self-care (01) ==
LOC: E/R 00:25
DX: R10.84 Generalized abdominal pain (principal); F17.210 Nicotine dependence, cigarettes, uncomplicated
CPT/HCPCS: 36415; 71010; 74176; 80053; 81001; 83690; 84484; 85025; 93005; 96374; 96375; 96376; 99285; J2270; J2405; 81003

== ENCOUNTER 2018-02-11 15:54 | Emergency (ER) | END 2018-02-11 21:54 | disposition home or self-care (01) ==

== ENCOUNTER 2018-06-26 08:24 | Day surgery (SDC) | END 2018-06-26 16:56 | disposition home or self-care (01) ==

== ENCOUNTER 2019-01-26 23:12 | Inpatient (IN) | payer MEDICARE, OTHER ==
[~2019-01-26] VITALS: Ht 167.6 cm; Wt 63.1 kg
[~2019-01-26 23:12] MED LIST changes: -CIPR500T4 PO; -DIAZ-90 PO; -DIAZ5SOL PO; +DICYCLOMINE; -HYDR-3498 PO; -IBUP-1542 PO; -NAPR-260 PO; +NAPROXEN; -TRAM50TA2 PO; +VITAMINS
[2019-01-26 23:21] VITALS: Ht 167.6 cm; Wt 63.1 kg
[2019-01-26] MEDS ORDERED: ONDANSETRON 4 MG INJ IV STA (23:45)
[2019-01-26] MEDS ORDERED: SOD CHLORIDE 0.9% 500 ML IV STA (23:45)
[2019-01-26] MEDS ORDERED: morphine 4 MG/ML VIAL IV STA (23:45)
[2019-01-27] MEDS ORDERED: HYDROmorphONE 0.5 MG/0.5 ML SYG IV STA (02:50)
--- NOTE | 2019-01-27 03:24 | ERD ---
ER Documentation Chief Complaint Chief Complaint [id number],from home,lower AP cramping,black tarry stool,hx colitis HPI Is a [age]-year-old female brought in by rescue from home with planes of lower abdominal cramping and black tarry stools with a history of colitis. Patient denies any fevers chills nausea or vomiting. Pain is mild to moderate intensity no exacerbating alleviating factors. Pain is is diffuse in location with no lo calizing features. ROS All systems reviewed and are negative except as per history of present illness. Medications Home Meds Reported Medications [Vitamins] No Conflict Check 06/26/18 [Naproxen] No Conflict Check 06/26/18 [Dicyclomine] No Conflict Check 06/26/18 Allergies Allergies: Coded Allergies: Iron Analogues (Unverified Allergy, Mild, 06/26/18) PMhx/Soc History of Surgery: Yes (IUD REMOVAL, OVARY REMOVAL, TUBAL LIGATION) Anesthesia Reaction: No Hx Neurological Disorder: No Hx Respiratory Disorders: No Hx Cardiac Disorders: Yes (IRREGULAR JOINT DISEASE) Hx Psychiatric Problems: No Hx Miscellaneous Medical Probl: Yes (HX HEP C TREATED) Hx Alcohol Use: No Hx Substance Use: No Hx Tobacco Use: Yes Smoking Status: Current every day smoker Physical Exam Vitals Vital Signs Date Temp Pulse Resp B/P (MAP) Pulse Ox O2 O2 Flow FiO2 Time Delivery Rate 01/27/19 75 23 158/79 96 Nasal 2.0 03:19 (105) Cannula 01/27/19 67 20 190/95 99 Room Air 00:14 (126) 01/26/19 97.6 74 18 185/88 99 23:21 (120) Physical Exam Const: No acute distress Head: Atraumatic Eyes: Normal Conjunctiva ENT: Normal External Ears, Nose and Mouth. Neck: Full range of motion. No meningismus. Resp: Clear to auscultation bilaterally Cardio: Regular rate and rhythm, no murmurs Abd: Soft, non tender, non distended. Normal bowel sounds Skin: No petechiae or rashes Back: No midline or flank tenderness Ext: No cyanosis, or edema Neur: Awake and alert Psych: Normal Mood and Affect Result Diagram: 01/27/19 0057 01/27/19 0057 Results 24 hrs Laboratory Tests Test 01/27/19 00:51 01/27/19 00:57 Prothrombin Time 15.1 Sec Prothrombin Time Ratio 1.2 INR International Normalized Ratio 1.18 Activated Partial Thromboplast Time 27.8 Sec White Blood Count 16.3 10^3/ul Red Blood Count 4.78 10^6/ul Hemoglobin 15.0 g/dl Hematocrit 43.8 % Mean Corpuscular Volume 91.6 fl Mean Corpuscular Hemoglobin 31.4 pg Mean Corpuscular Hemoglobin Concent 34.2 g/dl Red Cell Distribution Width 12.5 % Platelet Count 169 10^3/UL Mean Platelet Volume 10.6 fl Immature Granulocytes % 0.400 % Neutrophils % 89.6 % Lymphocytes % 4.9 % Monocytes % 4.9 % Eosinophils % 0.0 % Basophils % 0.2 % Nucleated Red Blood Cells % 0.0 /100WBC Immature Granulocytes # 0.070 10^3/ul Neutrophils # 14.6 10^3/ul Lymphocytes # 0.8 10^3/ul Monocytes # 0.8 10^3/ul Eosinophils # 0.0 10^3/ul Basophils # 0.0 10^3/ul Nucleated Red Blood Cells # 0.0 10^3/ul Sodium Level 144 mmol/L Potassium Level 4.3 mmol/L Chloride Level 111 mmol/L Carbon Dioxide Level 24 mmol/L Anion Gap 9 Blood Urea Nitrogen 24 mg/dl Creatinine 0.83 mg/dl Est Glomerular Filtrat Rate mL/min > 60 mL/min Glucose Level 205 mg/dl Calcium Level 9.7 mg/dl Total Bilirubin 0.5 mg/dl Direct Bilirubin 0.00 mg/dl Indirect Bilirubin 0.5 mg/dl Aspartate Amino Transf (AST/SGOT) 35 IU/L Alanine Aminotransferase (ALT/SGPT) 25 IU/L Alkaline Phosphatase 84 IU/L Troponin I < 0.012 ng/ml Total Protein 8.3 g/dl Albumin 4.6 g/dl Globulin 3.70 g/dl Albumin/Globulin Ratio 1.24 Lipase 137 U/L Current Medications Medications Dose Sig/Rosangela Start Time Status Last (Trade) Ordered Route PRN Stop Time Admin Dose Reason Admin Sodium 500 ml @ Q1H STAT 01/26/19 DC 01/27/19 Chloride 500 mls/hr IV 23:45 00:01 01/27/19 00:44 Morphine 4 mg ONCE STAT 01/26/19 DC 01/27/19 Sulfate IV 23:45 00:01 (morphine) 01/26/19 23:46 Ondansetron 4 mg ONCE STAT 01/26/19 DC 01/27/19 HCl (Zofran IV 23:45 00:00 Inj) 01/26/19 23:46 1 mg ONCE STAT 01/27/19 DC 01/27/19 Hydromorphone IV 02:50 02:55 HCl 01/27/19 02:52 (Dilaudid) Sodium 500 ml @ Q1H ONCE 01/27/19 Chloride 500 mls/hr IV 03:30 01/27/19 04:29 200 ml @ ONCE ONCE 01/27/19 Ciprofloxacin 200 mls/hr IVPB 03:30 / Dextrose 01/27/19 04:29 100 ml @ ONCE ONCE 01/27/19 Metronidazole 100 mls/hr IVPB 03:30 01/27/19 04:29 Ondansetron 4 mg BRIDGE ORDER 01/27/19 HCl (Zofran PRN IV 03:30 Inj) NAUSEA/VOMITI 01/28/19 03:29 NG 650 mg ER BRIDGE 01/27/19 Acetaminophen PRN PO 03:30 (Tylenol .MILD PAIN 01/28/19 03:29 Tab) 1-3 OR TEMP Procedures/MDM Medical decision making: Six 8-year female with colitis. At this point clinically stable, however requires intravenous antibiotics and admission. Patient admitted to hospitalist for further evaluation and management. Departure Diagnosis: Primary Impression: Abdominal pain Abdominal location: unspecified location Qualified Codes: R10.9 - Unspecified abdominal pain Condition: Stable ASPEN LLAMAS Jan 27, 2019 03:24
[2019-01-27] MEDS ORDERED: metroNIDAZOLE 500 MG/NS (PMX) 100 ML IVPB ONE (03:30)
[2019-01-27] MEDS ORDERED: ONDANSETRON 4 MG INJ IV PRN (03:30)
[2019-01-27] MEDS ORDERED: ACETAMINOPHEN 325 MG TAB PO PRN (03:30)
[2019-01-27] MEDS ORDERED: CIPROFLOXACIN 400MG/D5W 200 ML IVPB ONE (03:30)
[2019-01-27] MEDS ORDERED: SOD CHLORIDE 0.9% 500 ML IV ONE (03:30)
[2019-01-27] MEDS ORDERED: NACL 0.9% 3 ML SYG IV SCH (03:30)
[2019-01-27] MEDS ORDERED: NITR100C6 PO (04:12)
[2019-01-27] MEDS: SOD CHLORIDE 0.9% 1,000 ML IV SCH ×3 (04:26→21:17)
[2019-01-27] MEDS: HYDROCODONE/APAP (5/325) TAB PO PRN ×2 (04:47→23:54)
--- NOTE | 2019-01-27 04:48 | HP ---
Date/Time of Note Date/Time of Note DATE: 01/27/19 TIME: 04:39 Assessment/Plan VTE Prophylaxis SCD applied (from Nsg): Yes Pharmacological prophylaxis: NA/contraindicated Pharm contraindication: low risk/ambulating Lines/Catheters IV Catheter Type (from Nrsg): Saline Lock Assessment/Plan Hospital Course This is a [age]-year-old female being admitted to the [facility] floor for: #1 Colitis with rectal bleeding: Inlfammatory bowel vs. ischemic colitis vs. other. CT scan of the abdomen shows Mild to moderate thickening of the colon especially involving the splenic flexure represents a nonspecific colitis. Patient was told in the past that she may have Crohn's disease but she has never been officially diagnosed. She has had colonoscopies in the past that have not shown any signs of Crohn's. Given her current symptoms will trend her CBCs every 6 hours. Hemoglobin at the current time is 15. We will keep the patient n.p.o. except meds. Given possibility of Crohn's we will also start her on Solu-Medrol 30 mg IV every 12 hours until seen by GI. Will order a ANCA, ESR and CRP. Will consult . #2 history of hepatitis C: Patient was treated with Harvoni in the past. LFTs are currently within normal values. Will check hepatitis panel #3 elevated blood pressure: Patient does present with blood pressures in the 170 systolic. She does report that she has noticed elevated blood pressures at home. Will monitor blood pressures closely. At the current time we will put the patient on PRN hydralazine. #4 leukocytosis: reactive vs. infectious. on broad spectrum abx. Steroids also will be initiated so will need to monitor. #5 history of IBS: We will also give the patient Levsin. #6 GERD: Protonix #7 DVT GI prophylaxis: SCDs, Protonix Further treatment strategy will be implemented as per the clinical course. Result Diagram: 01/27/19 00501/27/1956 Results 24hrs Laboratory Tests Test 01/27/19 00:51 01/27/19 00:57 Prothrombin Time 15.1 H Prothrombin Time Ratio 1.2 INR International Normalized Ratio 1.18 Activated Partial Thromboplast Time 27.8 White Blood Count 16.3 #H Red Blood Count 4.78 Hemoglobin 15.0 Hematocrit 43.8 Mean Corpuscular Volume 91.6 Mean Corpuscular Hemoglobin 31.4 Mean Corpuscular Hemoglobin Concent 34.2 Red Cell Distribution Width 12.5 Platelet Count 169 Mean Platelet Volume 10.6 H Immature Granulocytes % 0.400 Neutrophils % 89.6 H Lymphocytes % 4.9 L Monocytes % 4.9 Eosinophils % 0.0 Basophils % 0.2 Nucleated Red Blood Cells % 0.0 Immature Granulocytes # 0.070 H Neutrophils # 14.6 H Lymphocytes # 0.8 Monocytes # 0.8 Eosinophils # 0.0 Basophils # 0.0 Nucleated Red Blood Cells # 0.0 Sodium Level 144 Potassium Level 4.3 Chloride Level 111 H Carbon Dioxide Level 24 Anion Gap 9 Blood Urea Nitrogen 24 H Creatinine 0.83 Est Glomerular Filtrat Rate mL/min > 60 Glucose Level 205 Calcium Level 9.7 Total Bilirubin 0.5 Direct Bilirubin 0.00 Indirect Bilirubin 0.5 Aspartate Amino Transf (AST/SGOT) 35 Alanine Aminotransferase (ALT/SGPT) 25 Alkaline Phosphatase 84 Troponin I < 0.012 Total Protein 8.3 H Albumin 4.6 Globulin 3.70 H Albumin/Globulin Ratio 1.24 Lipase 137 HPI/ROS Admit Date/Time Admit Date/Time Jan 27, 2019 at 03:17 Hx of Present Illness Chief complaint: Rectal bleeding, abdominal pain and vomiting This is a 68-year-old female with a past medical history of hepatitis C, IBS, GERD and possible Crohn's who presented to the emergency department complaining of rectal bleeding and abdominal pain. Patient presents with her daughter. Daughter states that she went to see her mother who was sitting on the toilet at home and she was in a lot of pain and was having rectal bleeding. She states that rectal bleeding and clots. She had multiple bloody bowel movements. She was told in the past that she had hemorrhoids. She had a colonoscopy in the past as well that also did not show any acute abnormalities. She did report though that her primary care doctor did mention Crohn's disease in the past but she never officially got diagnosed. The patient also has been expensing elevated blood pressures over the last few weeks but is not current on any medications. She has a history of hepatitis C and she was treated with Harvoni. Allergies: Iron analogs Medications: None ROS Const: As per HPI Eyes : No pain discharge or redness or change in visual acuity ENT: No pain, sore throat, congestion, congestion, dysphagia or discharge Respiratory: No shortness of breath, cough, sputum, wheezing, or pleuritic pain Cardiovascular: No chest pain, palpitation, PND, or edema GI : As per HPI Genitourinary: No dysuria, hematuria, flank pain , discharge or CVA tenderness Musculoskeletal: No joint pain, back pain, neck pain, restricted range of motion in neck or joints Skin: No rash, bruising or hives Neuro: No headache, dizziness, syncope, seizure, focal weakness Endocrine: No polyuria, polydipsia, temperature intolerance Psych: No hallucination, depression, anxiety or suicidal ideation PMH/Family/Social Past Medical History Hepatitis C treated with Harvoni, IBS, GERD Medications Current Medications Ondansetron HCl (Zofran Inj) 4 mg BRIDGE ORDER PRN IV NAUSEA/VOMITING; Start 01/27/19 at 03:30; Stop 01/28/19 at 03:29 Acetaminophen (Tylenol Tab) 650 mg ER BRIDGE PRN PO .MILD PAIN 1-3 OR TEMP; Start 01/27/19 at 03:30; Stop 01/28/19 at 03:29 Sodium Chloride 1,000 ml @ 75 mls/hr [id number] IV Last administered on 01/27/19at 04:26; Admin Dose 75 MLS/HR; Start 01/27/19 at 03:26 IV Flush (NS 3 ml) 3 ml PER PROTOCOL IV ; Start 01/27/19 at 03:30 Acetaminophen (Tylenol Tab) 650 mg Q6H PRN PO .PAIN 1-3 OR TEMP; Start 01/27/19 at 03:30 Acetaminophen/ Hydrocodone Bitart ([place] (5/325)) 1 tab Q6H PRN PO .MOD PAIN 4- 6; Start 01/27/19 at 03:30 Coded Allergies: Iron Analogues (Unverified Allergy, Mild, 01/27/19) Past Surgical History IUD removal, tubal ligation, left ovarian surgery, history of colonoscopy in the past. Family History Significant Family History: no pertinent family hx Social History History of IV drug use in the past Alcohol Use: none Smoking Status: Current every day smoker Exam/Review of Systems Vital Signs Vitals Vital Signs Date Temp Pulse Resp B/P (MAP) Pulse Ox O2 O2 Flow FiO2 Time Delivery Rate 01/27/19 75 23 158/79 96 Nasal 2.0 03:19 (105) Cannula 01/26/19 97.6 23:21 Exam Exam General: Patient is currently sitting upright in bed leaning over, she does appear to be in moderate abdominal pain HEENT: Atraumatic, normocephalic. The pupils are equal, round and reactive. Extraocular motor are intact Neck: Supple with full range of motion. No rigidity or meningismus Chest: Nontender Lungs: Clear to auscultation bilaterally no crackles rales or wheezing Heart: Normal S1-S2, Regular rhythm and rate. No murmur, S3, or S4 Abdomen: Soft, generalized tenderness to palpation, nondistended, normal bowel sounds. No rebound or guarding. Extremities: Normal to inspection, no edema no cyanosis Neurologic: Normal mental status, speech normal, cranial nerves II through XII are intact, motor and sensory are intact, no focal weakness Additional Comments PROCEDURE: CT Abdomen and pelvis without contrast. CLINICAL INDICATION: Abdominal pain. TECHNIQUE: CT scan of the abdomen and pelvis was performed on a multi- detector high-resolution CT scanner. Contiguous axial images were obtained from the lung bases to the ischial tuberosities without intravenous contrast. Coronal and sagittal reformatted images were also obtained. Images were reviewed on the PACS workstation. DICOM images are available. One or more of the following dose reduction techniques were used: - Automated exposure control. - Adjustment of the mA and/or kV according to patient size. - Use of iterative reconstruction technique. Exam CTD/vol = 8.75 mGy. Total exam DLP = 516.00 mGy-cm. COMPARISON: 05/14/2017. FINDINGS: Evaluation of the lung bases demonstrates mild to moderate centrolobular emphysema. There is mild bibasilar atelectasis. Abdomen: The liver is normal in size. There is no focal mass or dilatation of the biliary tree. The gallbladder is not distended. The spleen, pancreas and bilateral adrenal glands are within normal limits. Bilateral kidneys are normal in size with no contour deforming mass identified. There is mild scarring within the upper pole of the right kidney. There is no radiopaque renal or ureteral calculus identified. There is no hydronephrosis or hydroureter. There is no retroperitoneal adenopathy. The abdominal aorta is of normal caliber with scattered atherosclerotic calcifications. There is mild to moderate thickening of the colon especially involving the splenic flexure. There is no bowel obstruction or free air. A normal appendix is identified. There is no diverticulosis or diverticulitis. There is no ascites. Pelvis: The bladder is unremarkable. The uterus and adnexa are within normal limits. There is no significant pelvic adenopathy or free fluid. Evaluation of the osseous structures demonstrates no suspicious lytic or blastic lesion. IMPRESSION: Mild to moderate thickening of the colon especially involving the splenic flexure represents a nonspecific colitis. Mild to moderate centrolobular emphysema. Mild bibasilar atelectasis. Vascular calcifications reflective of atherosclerosis. .Barak Coleman MD, Date Time Electronically viewed and signed by .Barak Coleman MD, MD on 01/27/2019 02:21 .T/ CC: ASPEN LLAMAS [id number] PROCEDURE: XR Chest. CLINICAL INDICATION: Pain TECHNIQUE: AP semi upright portable chest was obtained. COMPARISON: None. FINDINGS: Hypoventilatory chest. Heart normal limits in size. Calcific atherosclerosis of the aorta. No evidence of pulmonary vascular congestion acute lung consolidation pleural effusions and pneumothorax. The bones are osteopenic. IMPRESSION: No evidence of acute cardiopulmonary disease. RPTAT:AAJJ Physician Julián Date Time Electronically viewed and signed by Physician Julián on 01/27/2019 01:10 BM/ CC: ASPEN LLAMAS [id number] RILEY OGDEN Jan 27, 2019 04:48
[2019-01-27] MEDS: METHYLPREDNISOLONE 40 MG INJ IV SCH ×2 (06:41→21:17)
[2019-01-27 07:58] VITALS: BP 177/88; PULSE 80; RESP 18
[2019-01-27] MEDS: HYDROmorphONE 1 MG/ML SYG IV PRN ×4 (09:05→23:01)
[2019-01-27] MEDS: hydrALAzine 20 MG INJ IV PRN (09:42)
[2019-01-27 10:51] VITALS: BP 139/74; PULSE 85; RESP 18
--- NOTE | 2019-01-27 12:29 | QN ---
Documentation Comment Is a 68-year-old female with a history of hepatitis C, hemorrhoidal bleed, got into the emergency room with large amount of bright rectal bleed associated with excruciating lower abdominal cramps with one episode of nonbilious/nonbloody vomiting yesterday evening.... CT reviewed. At this time, patient with fevers which she reported subjective prior to arrival, evidence of leukocytosis. Patient is currently on colitis management which we will continue. Patient is pending gastroenterology evaluation. Her last colonoscopy was last year and was unremarkable per patient's verbal report. We will follow-up GI recommendations. Keep patient n.p.o. until her symptoms improved. Continue empiric PPI. Continue empiric antimicrobials. She also thinks that she may also have a urine infection. Proceed with obtaining blood and urine cultures.. Patient was seen in collaboration with Dr. De Guzman. KATRIN CORRAL NP Jan 27, 2019 12:29
[2019-01-27 14:59] VITALS: BP 132/69; PULSE 85; RESP 16
[2019-01-27] MEDS ORDERED: MAGNESIUM CITRATE 300 ML BTL PO ONE (17:30)
--- NOTE | 2019-01-27 18:06 | CONS ---
DATE OF ADMISSION: 01/27/2019 DATE OF CONSULTATION: 01/27/2019 TYPE OF CONSULTATION: Gastroenterology. Dear Dr. Ogden: Thank you for asking me to see Mrs. Abraham in GI consultation. HISTORY OF PRESENT ILLNESS: As you know, patient is a 68-year-old white female who is admitted to [facility] because of abdominal pain and rectal bleeding. The patient started having rectal bleeding yesterday. She had several times of bleeding. She also got significant abdominal pain. No nausea, no vomiting, no diarrhea. She says she has Crohn's disease, but she does not take any medications f or Crohn's disease. She had a colonoscopy done in 08/2018. At that time, it showed only evidence of hemorrhoids, but CAT scan of the abdomen today showed evidence of colitis of the left side of the co mt. She has history of hepatitis C which was treated, high blood pressure, history of IBS as well. The p atient takes Levsin. She has history of gastroesophageal reflux disease for which she takes Prevacid . SOCIAL HISTORY: The patient does not smoke or drink. PHYSICAL EXAMINATION: GENERAL: The patient is a 68-year-old white female who at this time she is alert. VITAL SIGNS: She is afebrile. CARDIOVASCULAR: Normal heart sounds. RESPIRATORY: Normal breath sounds. ABDOMEN: Showed unremarkable findings. LABORATORY WORKUP: Hemoglobin is 13.7, hematocrit 40.7, WBC count is 21,600. Chemistry: BUN is 24, creatinine 0.93, potassium 4.6, carbon dioxide 28. DIAGNOSTIC DATA: CAT scan of the abdomen as mentioned showed evidence of colitis of the left side of the colon, mostly splenic flexure. CLINICAL IMPRESSION: The patient is presenting with history of rectal bleeding. The patient has col itis on the CAT scan. Rule out ischemic colitis, inflammatory bowel disease, colorectal neoplasm. S he has history of gastroesophageal reflux disease, history of hemorrhoids. PLAN: At this time, I recommend colonoscopy. Once again, doctor, thank you for this consultation. Dictated By: DIANNE ACKERMAN/BREONNA Conf#: [id number] DID#: [id number] CC: RILEY OGDEN MD;*EndCC*
[2019-01-27] MEDS: ACETAMINOPHEN 325 MG TAB PO PRN (18:17)
[2019-01-27 20:51] VITALS: BP 111/59; PULSE 88; RESP 19
[2019-01-27] MEDS ORDERED: LACTULOSE 30ML CUP PO SCH ×2 (21:00→22:00)
[2019-01-27] MEDS ORDERED: DEXTROSE 5%-0.45% NACL 1,000 ML IV SCH (22:30)
[2019-01-27] MEDS: CIPROFLOXACIN 400MG/D5W 200 ML IVPB SCH (22:39)
[2019-01-27] MEDS ORDERED: PANTOPRAZOLE 40 MG INJ IV ONE (23:00)
[2019-01-27] MEDS: LACTULOSE 30ML CUP PO SCH (23:53)
[2019-01-27] MEDS: metroNIDAZOLE 500 MG/NS (PMX) 100 ML IVPB SCH (23:54)
[2019-01-28] VITALS (15 sets, daily range): BP systolic 111–192; BP diastolic 56–93; PULSE 78–96; RESP 12–29
[2019-01-28] MEDS: LACTULOSE 30ML CUP PO SCH ×6 (03:07→20:59)
[2019-01-28] MEDS: HYDROmorphONE 1 MG/ML SYG IV PRN ×5 (03:34→20:59)
[2019-01-28] MEDS: hydrALAzine 20 MG INJ IV PRN ×2 (05:24→23:55)
[2019-01-28] MEDS: metroNIDAZOLE 500 MG/NS (PMX) 100 ML IVPB SCH ×4 (05:24→23:31)
[2019-01-28] MEDS ORDERED: PANTOPRAZOLE 40 MG INJ IV SCH (06:00)
[2019-01-28] MEDS: METHYLPREDNISOLONE 40 MG INJ IV SCH (09:04)
[2019-01-28] MEDS: CIPROFLOXACIN 400MG/D5W 200 ML IVPB SCH ×2 (09:04→20:59)
[2019-01-28] MEDS: HYDROCODONE/APAP (5/325) TAB PO PRN (09:04)
[2019-01-28] MEDS ORDERED: NA PHOSPHATE/BIPHOS 133 ML ENEMA PR ONE (10:30)
[2019-01-28] MEDS: ACETAMINOPHEN 325 MG TAB PO PRN ×2 (10:45→17:46)
[2019-01-28] MEDS ORDERED: LIDOCAINE 2% (SDV) 5 ML INJ ONE (13:19)
[2019-01-28] MEDS ORDERED: PROPOFOL 60 ML ONE (13:19)
--- NOTE | 2019-01-28 13:19 | PREAC ---
Date/Time of Note Date/Time of Note DATE: 01/28/19 TIME: 13:17 Anesthesia Eval and Record Evaluation Time Pre-Procedure Interview DATE: 01/28/19 TIME: 13:17 Age 68 Sex female NPO: 8 hrs Preoperative diagnosis Colitis, Crohn disease Planned procedure Colonoscopy Past Medical History Past Medical History: Includes Cardio: HTN, Dyslipidemia Hepatic: Hepatitis GI: GERD, Obesity Surgery & Anesthesia Issues No known issue Meds Anticoagulation: No Beta Elliott within 24 hr: No Reason Beta Elliott not given: Pt. not on B-Elliott Reported Medications Nitrofurantoin Monohyd Macrocr (Macrobid) 100 Mg Capsr, 100 MG PO Q12H 01/27/19 Discontinued Reported Medications [Vitamins] No Conflict Check 06/26/18 [Naproxen] No Conflict Check 06/26/18 [Dicyclomine] No Conflict Check 06/26/18 Current Medications IV Flush (NS 3 ml) 3 ml PER PROTOCOL IV ; Start 01/27/19 at 03:30 Acetaminophen (Tylenol Tab) 650 mg Q6H PRN PO .PAIN 1-3 OR TEMP Last administered on 01/28/19at 10:45; Admin Dose 650 MG; Start 01/27/19 at 03:30 Acetaminophen/ Hydrocodone Bitart ([place] (5/325)) 1 tab Q6H PRN PO .MOD PAIN 4- 6 Last administered on 01/28/19at 09:04; Admin Dose 1 TAB; Start 01/27/19 at 03:30 Methylprednisolone Sodium Succinate (Solu-Medrol) 30 mg Q12 IV Last administered on 01/28/19at 09:04; Admin Dose 30 MG; Start 01/27/19 at 05:00 Hydromorphone HCl (Dilaudid) 1 mg Q3H PRN IV SEVERE PAIN LEVEL 7-10 Last administered on 01/28/19at 10:45; Admin Dose 1 MG; Start 01/27/19 at 05:00 Hydralazine HCl (Apresoline) 10 mg Q4H PRN IV ELEVATED BLOOD PRESSURE Last administered on 01/28/19at 05:24; Admin Dose 10 MG; Start 01/27/19 at 05:00 Lactulose (Enulose) 20 gm Q4 PO ; Start 01/28/19 at 09:00 Hyoscyamine (Levsin (Sl)) 0.125 mg Q4H PRN SL ABDOMINAL CRAMPS; Start 01/27/19 at 22:30 Ciprofloxacin/ Dextrose 200 ml @ 200 mls/hr Q12 IVPB Last administered on 01/28/19at 09:04; Admin Dose 200 MLS/HR; Start 01/27/19 at 23:00 Metronidazole 100 ml @ 100 mls/hr Q6 IVPB Last administered on 01/28/19at 05:24; Admin Dose 100 MLS/HR; Start 01/28/19 at 00:00 Pantoprazole (Protonix Iv) 40 mg DAILY@06 IV Last administered on 01/28/19at 05:42; Admin Dose 40 MG; Start 01/28/19 at 06:00 Meds reviewed: Yes Allergies Coded Allergies: Iron Analogues (Unverified Allergy, Mild, 01/27/19) Allergies Reviewed: Yes Labs/Studies Labs Reviewed: Reviewed by anesthesiologist Result Diagram: 01/28/19 0508 01/28/19 0508 Laboratory Tests 01/28/19 05:08 test: N/A Studies: ECG Pre-procedure Exam Last vitals Vital Signs Date Temp Pulse Resp B/P (MAP) Pulse Ox O2 O2 Flow FiO2 Time Delivery Rate 01/28/19 98.5 96 16 158/72 95 07:54 (100) 01/28/19 2.0 05:48 01/27/19 Nasal 20:00 Cannula Airway: Adequate mouth opening, Adequate thyromental dist Mallampati: Mallampati II Teeth: Normal Lung: Normal Heart: Normal ASA Physical Status ASA physical status: 3 Emergency: None Planned Anesthetic General/MAC: MAC Planned Pain Management Parenteral pain med Pre-operative Attestations Prior to commencing anesthesia and surgery, the patient was re-evaluated, there was verification of: *The patient's identity *The results of appropriate recent lab work and preoperative vital signs *The above evaluation not changing prior to induction *Anesthetic plan, risk benefits, alternative and complications discussed with patient/family; questions answered; patient/family understands, accepts and wishes to proceed. DONNA JOSEPH MD Jan 28, 2019 13:19
--- NOTE | 2019-01-28 14:19 | PAC ---
Date/Time of Note Date/Time of Note DATE: 01/28/19 TIME: 14:18 Post-Anesthesia Notes Post-Anesthesia Note Last documented vital signs Vital Signs Date Temp Pulse Resp B/P (MAP) Pulse Ox O2 O2 Flow FiO2 Time Delivery Rate 01/28/19 98.5 96 16 158/72 95 07:54 (100) 01/28/19 2.0 05:48 01/27/19 Nasal 20:00 Cannula Activity: WNL Respiratory function: WNL Cardiovascular function: WNL Mental status: Baseline Pain reasonably controlled: Yes Hydration appropriate: Yes Nausea/Vomiting absent: Yes Comments BP:112/67, P:78, Spo2:100%, T:98,8 DONNA JOSEPH MD Jan 28, 2019 14:19
--- NOTE | 2019-01-28 14:21 | PN ---
Date/Time of Note Date/Time of Note DATE: 01/28/19 TIME: 14:20 Assessment/Plan VTE Prophylaxis Risk score (from Ns)>0 risk: 4 SCD applied (from Ns): Yes Pharmacological prophylaxis: NA/contraindicated Pharm contraindication: low risk/ambulating Lines/Catheters IV Catheter Type (from [facility] Saline Lock Assessment/Plan Hospital Course SUBJECTIVE: Lying in bed, complaining of abdominal pain. No nausea or vomiting. No further rectal bleed reported. OBJECTIVE: Vital signs-see below PHYSICAL EXAM: Constitutional: Adequately built,not in acute distress. HEENT: Head atraumatic and normocephalic. Eyes: Extraocular muscles intact. Anicteric sclerae. Pupils equal bilaterally, reactive to light. NECK: Supple without lymph node. CHEST: Clear and good breath sounds equally. No wheezing. No rhonchi. HEART: S1, S2. Regular rate and rhythm. ABDOMEN: Tender to all 4 quadrants. Soft with no rebound tenderness. Bowel sounds were present. EXTREMITIES: No cyanosis, clubbing or edema. NEUROLOGIC: Alert and oriented x3. No focal deficit. No sensory deficit. PSYCHOSOCIAL: No signs of depression. INTEGUMENTARY: No open wounds. ASSESSMENT AND PLAN:68 yo F w/ reported history of Crohn's disease not on any medications, brought lead last colonoscopy in August 2018, here with rectal bleeding and generalized lower quadrant abdominal pain, found to have CT evidence of colitis. Rectal bleed with CT evidence of colitis -For colonoscopy today. -N.p.o., IV fluids, pain control -Continue Cipro and Flagyl -DC steroids and await for colonoscopy findings Leukocytosis, likely secondary to above -Note patient is also receiving steroids which is also part of leukocytosis. -Continue antibiotics. -Follow-up blood cultures History of gastritis -Continue PPI Hx of hepatitis C -Reportedly treated with Harvoni in the past Hypertension -likely pain induced/panic attacks -Monitor and will start amlodipine if persists. Anxiety disorders -PRN Ativan DVT prophylaxis: SCDs PUD prophylaxis: Protonix Disposition: Follow-up GI recommendations post colonoscopy. Patient was seen in collaboration with Dr. De Guzman. Result Diagram: 01/28/19 0508 01/28/19 0508 Results 24hrs Laboratory Tests Test 01/27/19 14:40 01/27/19 14:47 01/27/19 19:52 01/28/19 02:00 Urine Color YELLOW Urine Clarity CLEAR Urine pH 5.0 Urine Specific 1.026 [place] Urine Ketones TRACE A Urine Nitrite NEGATIVE Urine Bilirubin NEGATIVE Urine Urobilinogen NEGATIVE Urine Leukocyte NEGATIVE Esterase Urine Microscopic 4 RBC Urine Microscopic 1 WBC Urine Squamous FEW Epithelial Cells Urine Mucus FEW A Urine Hemoglobin 1+ H Urine Glucose 1+ H Urine Total Protein NEGATIVE Urine Opiates Screen Positive Urine Barbiturates Negative Urine Amphetamines Negative Screen Urine POSITIVE Benzodiazepines Screen Urine Cocaine Screen Negative Urine Cannabinoids POSITIVE White Blood Count 21.6 H 23.6 H 22.0 H Red Blood Count 4.41 4.25 4.35 Hemoglobin 13.7 13.1 13.5 Hematocrit 40.7 38.8 40.1 Mean Corpuscular 92.3 91.3 92.2 Volume Mean Corpuscular 31.1 30.8 31.0 Hemoglobin Mean Corpuscular 33.7 33.8 33.7 Hemoglobin Concent Red Cell 12.5 12.8 12.4 Distribution Width Platelet Count 158 157 149 Mean Platelet Volume 11.0 H 11.0 H 11.0 H Immature 0.500 H 0.700 H 0.900 H Granulocytes % Neutrophils % 87.3 H 80.9 H 93.2 H Lymphocytes % 5.6 L 10.2 L 3.2 L Monocytes % 6.5 8.1 2.6 Eosinophils % 0.0 0.0 0.0 Basophils % 0.1 0.1 0.1 Nucleated Red Blood 0.0 0.0 0.0 Cells % Immature 0.100 H 0.170 H 0.200 H Granulocytes # Neutrophils # 18.9 H 19.0 H 20.5 H Lymphocytes # 1.2 2.4 0.7 L Monocytes # 1.4 H 1.9 H 0.6 Eosinophils # 0.0 0.0 0.0 Basophils # 0.0 0.0 0.0 Nucleated Red Blood 0.0 0.0 0.0 Cells # Test 01/28/19 05:08 White Blood Count 23.6 H Red Blood Count 4.53 Hemoglobin 13.8 Hematocrit 41.6 Mean Corpuscular 91.8 Volume Mean Corpuscular 30.5 Hemoglobin Mean Corpuscular 33.2 Hemoglobin Concent Red Cell 12.7 Distribution Width Platelet Count 150 Mean Platelet Volume 11.2 H Immature 0.800 H Granulocytes % Neutrophils % 91.2 H Lymphocytes % 4.0 L Monocytes % 3.9 Eosinophils % 0.0 Basophils % 0.1 Nucleated Red Blood 0.0 Cells % Immature 0.180 H Granulocytes # Neutrophils # 21.5 H Lymphocytes # 1.0 Monocytes # 0.9 Eosinophils # 0.0 Basophils # 0.0 Nucleated Red Blood 0.0 Cells # Sodium Level 141 Potassium Level 4.0 Chloride Level 105 Carbon Dioxide Level 25 Anion Gap 11 Blood Urea Nitrogen 12 # Creatinine 0.61 Est Glomerular > 60 Filtrat Rate mL/min Glucose Level 246 H Calcium Level 8.8 Total Bilirubin 0.5 Direct Bilirubin 0.00 Indirect Bilirubin 0.5 Aspartate Amino 25 Transf (AST/SGOT) Alanine 25 Aminotransferase (AL T/SGPT) Alkaline Phosphatase 73 Total Protein 7.6 Albumin 4.1 Globulin 3.50 H Albumin/Globulin 1.17 Ratio Hepatitis B Surface NEGATIVE Antigen Hepatitis B Surface NEGATIVE Antibody Hepatitis C Antibody REACTIVE H Exam/Review of Systems Exam Vitals Vital Signs Date Temp Pulse Resp B/P (MAP) Pulse Ox O2 O2 Flow FiO2 Time Delivery Rate 01/28/19 Simple 15 13:53 Mask 01/28/19 97.9 96 24 142/74 92 13:20 (96) Intake and Output 01/27/19 01/27/19 01/28/19 1515:00 23:00 07:00 IntakeIntake Total 300 ml 1075 ml 775 ml BalanceBalance 300 ml 1075 ml 775 ml Results Results 24hrs Laboratory Tests Test 01/27/19 14:40 01/27/19 14:47 01/27/19 19:52 01/28/19 02:00 Urine Color YELLOW Urine Clarity CLEAR Urine pH 5.0 Urine Specific 1.026 [place] Urine Ketones TRACE A Urine Nitrite NEGATIVE Urine Bilirubin NEGATIVE Urine Urobilinogen NEGATIVE Urine Leukocyte NEGATIVE Esterase Urine Microscopic 4 RBC Urine Microscopic 1 WBC Urine Squamous FEW Epithelial Cells Urine Mucus FEW A Urine Hemoglobin 1+ H Urine Glucose 1+ H Urine Total Protein NEGATIVE Urine Opiates Screen Positive Urine Barbiturates Negative Urine Amphetamines Negative Screen Urine POSITIVE Benzodiazepines Screen Urine Cocaine Screen Negative Urine Cannabinoids POSITIVE White Blood Count 21.6 H 23.6 H 22.0 H Red Blood Count 4.41 4.25 4.35 Hemoglobin 13.7 13.1 13.5 Hematocrit 40.7 38.8 40.1 Mean Corpuscular 92.3 91.3 92.2 Volume Mean Corpuscular 31.1 30.8 31.0 Hemoglobin Mean Corpuscular 33.7 33.8 33.7 Hemoglobin Concent Red Cell 12.5 12.8 12.4 Distribution Width Platelet Count 158 157 149 Mean Platelet Volume 11.0 H 11.0 H 11.0 H Immature 0.500 H 0.700 H 0.900 H Granulocytes % Neutrophils % 87.3 H 80.9 H 93.2 H Lymphocytes % 5.6 L 10.2 L 3.2 L Monocytes % 6.5 8.1 2.6 Eosinophils % 0.0 0.0 0.0 Basophils % 0.1 0.1 0.1 Nucleated Red Blood 0.0 0.0 0.0 Cells % Immature 0.100 H 0.170 H 0.200 H Granulocytes # Neutrophils # 18.9 H 19.0 H 20.5 H Lymphocytes # 1.2 2.4 0.7 L Monocytes # 1.4 H 1.9 H 0.6 Eosinophils # 0.0 0.0 0.0 Basophils # 0.0 0.0 0.0 Nucleated Red Blood 0.0 0.0 0.0 Cells # Test 01/28/19 05:08 White Blood Count 23.6 H Red Blood Count 4.53 Hemoglobin 13.8 Hematocrit 41.6 Mean Corpuscular 91.8 Volume Mean Corpuscular 30.5 Hemoglobin Mean Corpuscular 33.2 Hemoglobin Concent Red Cell 12.7 Distribution Width Platelet Count 150 Mean Platelet Volume 11.2 H Immature 0.800 H Granulocytes % Neutrophils % 91.2 H Lymphocytes % 4.0 L Monocytes % 3.9 Eosinophils % 0.0 Basophils % 0.1 Nucleated Red Blood 0.0 Cells % Immature 0.180 H Granulocytes # Neutrophils # 21.5 H Lymphocytes # 1.0 Monocytes # 0.9 Eosinophils # 0.0 Basophils # 0.0 Nucleated Red Blood 0.0 Cells # Sodium Level 141 Potassium Level 4.0 Chloride Level 105 Carbon Dioxide Level 25 Anion Gap 11 Blood Urea Nitrogen 12 # Creatinine 0.61 Est Glomerular > 60 Filtrat Rate mL/min Glucose Level 246 H Calcium Level 8.8 Total Bilirubin 0.5 Direct Bilirubin 0.00 Indirect Bilirubin 0.5 Aspartate Amino 25 Transf (AST/SGOT) Alanine 25 Aminotransferase (AL T/SGPT) Alkaline Phosphatase 73 Total Protein 7.6 Albumin 4.1 Globulin 3.50 H Albumin/Globulin 1.17 Ratio Hepatitis B Surface NEGATIVE Antigen Hepatitis B Surface NEGATIVE Antibody Hepatitis C Antibody REACTIVE H Medications Medication Current Medications IV Flush (NS 3 ml) 3 ml PER PROTOCOL IV ; Start 01/27/19 at 03:30 Acetaminophen (Tylenol Tab) 650 mg Q6H PRN PO .PAIN 1-3 OR TEMP Last administered on 01/28/19 10:45; Admin Dose 650 MG; Start 01/27/19 at 03:30 Acetaminophen/ Hydrocodone Bitart ([place] (5/325)) 1 tab Q6H PRN PO .MOD PAIN 4- 6 Last administered on 01/28/19 09:04; Admin Dose 1 TAB; Start 01/27/19 at 03:30 Methylprednisolone Sodium Succinate (Solu-Medrol) 30 mg Q12 IV Last administered on 01/28/19 09:04; Admin Dose 30 MG; Start 01/27/19 at 05:00 Hydromorphone HCl (Dilaudid) 1 mg Q3H PRN IV SEVERE PAIN LEVEL 7-10 Last administered on 01/28/19 10:45; Admin Dose 1 MG; Start 01/27/19 at 05:00 Hydralazine HCl (Apresoline) 10 mg Q4H PRN IV ELEVATED BLOOD PRESSURE Last administered on 01/28/19 05:24; Admin Dose 10 MG; Start 01/27/19 at 05:00 Lactulose (Enulose) 20 gm Q4 PO ; Start 01/28/19 at 09:00 Hyoscyamine (Levsin (Sl)) 0.125 mg Q4H PRN SL ABDOMINAL CRAMPS; Start 01/27/19 at 22:30 Ciprofloxacin/ Dextrose 200 ml @ 200 mls/hr Q12 IVPB Last administered on 01/28/19 09:04; Admin Dose 200 MLS/HR; Start 01/27/19 at 23:00 Metronidazole 100 ml @ 100 mls/hr Q6 IVPB Last administered on 01/28/19 05:24; Admin Dose 100 MLS/HR; Start 01/28/19 at 00:00 Pantoprazole (Protonix Iv) 40 mg DAILY@06 IV Last administered on 01/28/19 05:42; Admin Dose 40 MG; Start 01/28/19 at 06:00 KATRIN CORRAL NP Jan 28, 2019 14:21
[2019-01-28] MEDS ORDERED: LORAZEPAM 2 MG INJ IV PRN (14:30)
[2019-01-28] MEDS ORDERED: DEXTROSE 5%-0.45% NACL 1,000 ML IV SCH (23:00)
[2019-01-29] MEDS: HYDROmorphONE 1 MG/ML SYG IV PRN ×7 (00:15→22:06)
[2019-01-29 02:00] VITALS: BP 141/73; PULSE 101; RESP 19
[2019-01-29] MEDS: metroNIDAZOLE 500 MG/NS (PMX) 100 ML IVPB SCH (06:26)
[2019-01-29] MEDS: ACETAMINOPHEN 325 MG TAB PO PRN ×2 (06:27→15:01)
[2019-01-29 08:49] VITALS: BP 162/74; PULSE 85; RESP 20
[2019-01-29] MEDS: FAMOTIDINE 20 MG INJ IV SCH ×2 (08:59→22:02)
[2019-01-29] MEDS: CIPROFLOXACIN 400MG/D5W 200 ML IVPB SCH (08:59)
[2019-01-29] MEDS ORDERED: AMLODIPINE 2.5 MG TAB PO SCH ×3 (09:00→12:30)
--- NOTE | 2019-01-29 12:16 | PN ---
Date/Time of Note Date/Time of Note DATE: 01/29/19 TIME: 12:12 Assessment/Plan VTE Prophylaxis Risk score (from Nsg)>0 risk: 6 SCD applied (from Nsg): Yes Pharmacological prophylaxis: NA/contraindicated Pharm contraindication: low risk/ambulating Lines/Catheters IV Catheter Type (from Nrsg): Peripheral IV Assessment/Plan Hospital Course SUBJECTIVE:continue to have abd pain. OBJECTIVE: Vital signs-see below PHYSICAL EXAM: Constitutional: Adequately built,not in acute distress. HEENT: Head atraumatic and normocephalic. Eyes: Extraocular muscles intact. Anicteric sclerae. Pupils equal bilaterally, reactive to light. NECK: Supple without lymph node. CHEST: Clear and good breath sounds equally. No wheezing. No rhonchi. HEART: S1, S2. Regular rate and rhythm. ABDOMEN: Tender to all 4 quadrants. Soft with no rebound tenderness. Bowel sounds were present. EXTREMITIES: No cyanosis, clubbing or edema. NEUROLOGIC: Alert and oriented x3. No focal deficit. No sensory deficit. PSYCHOSOCIAL: No signs of depression. INTEGUMENTARY: No open wounds. ASSESSMENT AND PLAN:68 yo F w/ reported history of Crohn's disease not on any medications, brought lead last colonoscopy in August 2018, here with rectal bleeding and generalized lower quadrant abdominal pain, found to have CT quin dence of colitis. Inflammatory Colitis w/ Crohn's flares -s/p colonoscopy today. -start prednisone 10mg qid recommend by GI -Diet per GI -Follow pathology Leukocytosis, likely secondary to above -Note patient is also receiving steroids which is also part of leukocytosis. -DC abx as colitis is inflammatory not infectious History of gastritis -Continue PPI Hx of hepatitis C -Reportedly treated with Harvoni in the past Hypertension -persists - start amlodipine Anxiety disorders -PRN Ativan DVT prophylaxis: SCDs PUD prophylaxis: Protonix Disposition:pt w/s evere inflammatory colitis requiring slow Diet advancement . F/u pathology. Patient was seen in collaboration with Dr. Brown Result Diagram: 01/29/19 0706 01/29/19 0706 Results 24hrs Laboratory Tests Test 01/29/19 07:06 White Blood Count 19.7 H Red Blood Count 4.15 L Hemoglobin 12.7 Hematocrit 38.1 Mean Corpuscular Volume 91.8 Mean Corpuscular Hemoglobin 30.6 Mean Corpuscular Hemoglobin Concent 33.3 Red Cell Distribution Width 12.5 Platelet Count 143 Mean Platelet Volume 10.7 H Immature Granulocytes % 1.100 H Neutrophils % 82.5 H Lymphocytes % 8.3 L Monocytes % 7.8 Eosinophils % 0.0 Basophils % 0.3 Nucleated Red Blood Cells % 0.0 Immature Granulocytes # 0.220 H Neutrophils # 16.3 H Lymphocytes # 1.6 Monocytes # 1.5 H Eosinophils # 0.0 Basophils # 0.1 Nucleated Red Blood Cells # 0.0 Sodium Level 137 Potassium Level 3.7 Chloride Level 103 Carbon Dioxide Level 29 Anion Gap 5 Blood Urea Nitrogen 10 Creatinine 0.58 Est Glomerular Filtrat Rate mL/min > 60 Glucose Level 157 Calcium Level 8.7 Total Bilirubin 0.5 Direct Bilirubin 0.00 Indirect Bilirubin 0.5 Aspartate Amino Transf (AST/SGOT) 18 Alanine Aminotransferase (ALT/SGPT) 24 Alkaline Phosphatase 64 Total Protein 6.6 # Albumin 3.5 Globulin 3.10 Albumin/Globulin Ratio 1.12 Exam/Review of Systems Exam Vitals Vital Signs Date Temp Pulse Resp B/P (MAP) Pulse Ox O2 O2 Flow FiO2 Time Delivery Rate 01/29/19 98.3 85 20 162/74 93 Room Air 08:49 (103) 01/28/19 2.0 20:00 Intake and Output 01/28/19 01/28/19 01/29/19 1414:59 22:59 06:59 IntakeIntake Total 200 ml 925 ml 510 ml BalanceBalance 200 ml 925 ml 510 ml Results Results 24hrs Laboratory Tests Test 01/29/19 07:06 White Blood Count 19.7 H Red Blood Count 4.15 L Hemoglobin 12.7 Hematocrit 38.1 Mean Corpuscular Volume 91.8 Mean Corpuscular Hemoglobin 30.6 Mean Corpuscular Hemoglobin Concent 33.3 Red Cell Distribution Width 12.5 Platelet Count 143 Mean Platelet Volume 10.7 H Immature Granulocytes % 1.100 H Neutrophils % 82.5 H Lymphocytes % 8.3 L Monocytes % 7.8 Eosinophils % 0.0 Basophils % 0.3 Nucleated Red Blood Cells % 0.0 Immature Granulocytes # 0.220 H Neutrophils # 16.3 H Lymphocytes # 1.6 Monocytes # 1.5 H Eosinophils # 0.0 Basophils # 0.1 Nucleated Red Blood Cells # 0.0 Sodium Level 137 Potassium Level 3.7 Chloride Level 103 Carbon Dioxide Level 29 Anion Gap 5 Blood Urea Nitrogen 10 Creatinine 0.58 Est Glomerular Filtrat Rate mL/min > 60 Glucose Level 157 Calcium Level 8.7 Total Bilirubin 0.5 Direct Bilirubin 0.00 Indirect Bilirubin 0.5 Aspartate Amino Transf (AST/SGOT) 18 Alanine Aminotransferase (ALT/SGPT) 24 Alkaline Phosphatase 64 Total Protein 6.6 # Albumin 3.5 Globulin 3.10 Albumin/Globulin Ratio 1.12 Medications Medication Current Medications IV Flush (NS 3 ml) 3 ml PER PROTOCOL IV ; Start 01/27/19 at 03:30 Acetaminophen (Tylenol Tab) 650 mg Q6H PRN PO .PAIN 1-3 OR TEMP Last administered on 01/29/19 06:27; Admin Dose 650 MG; Start 01/27/19 at 03:30 Acetaminophen/ Hydrocodone Bitart ([place] (5/325)) 1 tab Q6H PRN PO .MOD PAIN 4- 6 Last administered on 01/28/19 09:04; Admin Dose 1 TAB; Start 01/27/19 at 03:30 Hydromorphone HCl (Dilaudid) 1 mg Q3H PRN IV SEVERE PAIN LEVEL 7-10 Last administered on 01/29/19 08:58; Admin Dose 1 MG; Start 01/27/19 at 05:00 Hydralazine HCl (Apresoline) 10 mg Q4H PRN IV ELEVATED BLOOD PRESSURE Last administered on 01/28/19 23:55; Admin Dose 10 MG; Start 01/27/19 at 05:00 Hyoscyamine (Levsin (Sl)) 0.125 mg Q4H PRN SL ABDOMINAL CRAMPS; Start 01/27/19 at 22:30 Ciprofloxacin/ Dextrose 200 ml @ 200 mls/hr Q12 IVPB Last administered on 01/29/19 08:59; Admin Dose 200 MLS/HR; Start 01/27/19 at 23:00 Metronidazole 100 ml @ 100 mls/hr Q6 IVPB Last administered on 01/29/19 06:26; Admin Dose 100 MLS/HR; Start 01/28/19 at 00:00 Amlodipine Besylate (Norvasc) 2.5 mg DAILY PO Last administered on 01/29/19 08:59; Admin Dose 2.5 MG; Start 01/29/19 at 09:00 Lorazepam (Ativan) 0.5 mg Q8H PRN IV anxiety; Start 01/28/19 at 14:30 Famotidine (Pepcid Iv) 20 mg BID IV Last administered on 01/29/19at 08:59; Admin Dose 20 MG; Start 01/29/19 at 09:00 Prednisone (Prednisone) 10 mg QID PO ; Start 01/29/19 at 13:00 KATRIN CORRAL V. MAINTENANCE AIDE Jan 29, 2019 12:16
[2019-01-29] MEDS: predniSONE 10 MG TAB PO SCH ×3 (12:20→21:15)
[2019-01-29 12:28] VITALS: BP 144/73; PULSE 92
[2019-01-29 15:00] VITALS: BP 172/83; PULSE 94; RESP 16
[2019-01-29] MEDS ORDERED: hydrALAzine 20 MG INJ IV PRN (15:00)
[2019-01-29] MEDS: HYDROCODONE/APAP (5/325) TAB PO PRN ×2 (15:02→21:14)
[2019-01-29 16:53] VITALS: BP 159/77; PULSE 87
[2019-01-29 20:09] VITALS: BP 160/80; PULSE 86; RESP 18
[2019-01-30] MEDS: HYDROmorphONE 1 MG/ML SYG IV PRN ×7 (01:52→22:02)
[2019-01-30 02:38] VITALS: BP 139/70; PULSE 98
[2019-01-30 08:48] VITALS: BP 158/94; PULSE 85; RESP 20
[2019-01-30] MEDS: AMLODIPINE 2.5 MG TAB PO SCH (09:14)
[2019-01-30] MEDS: FAMOTIDINE 20 MG INJ IV SCH ×2 (09:15→20:30)
[2019-01-30] MEDS: predniSONE 10 MG TAB PO SCH ×4 (09:15→20:30)
--- NOTE | 2019-01-30 11:20 | PN ---
Date/Time of Note Date/Time of Note DATE: 01/30/19 TIME: 11:17 Assessment/Plan VTE Prophylaxis Risk score (from Nsg)>0 risk: 6 SCD applied (from Nsg): Yes Pharmacological prophylaxis: NA/contraindicated Pharm contraindication: low risk/ambulating Lines/Catheters IV Catheter Type (from Nrsg): Peripheral IV Assessment/Plan Hospital Course SUBJECTIVE:continue to have abd pain. On clear diet OBJECTIVE: Vital signs-see below PHYSICAL EXAM: Constitutional: Adequately built,not in acute distress. HEENT: Head atraumatic and normocephalic. Eyes: Extraocular muscles intact. Anicteric sclerae. Pupils equal bilaterally, reactive to light. NECK: Supple without lymph node. CHEST: Clear and good breath sounds equally. No wheezing. No rhonchi. HEART: S1, S2. Regular rate and rhythm. ABDOMEN: Tender to all 4 quadrants. Soft with no rebound tenderness. Bowel sounds were present. EXTREMITIES: No cyanosis, clubbing or edema. NEUROLOGIC: Alert and oriented x3. No focal deficit. No sensory deficit. PSYCHOSOCIAL: No signs of depression. INTEGUMENTARY: No open wounds. ASSESSMENT AND PLAN:68 yo F w/ reported history of Crohn's disease not on any medications, brought lead last colonoscopy in August 2018, here with rectal bleeding and generalized lower quadrant abdominal pain, found to have CT evidence of colitis. Inflammatory Colitis w/ Crohn's flares -s/p colonoscopy -pathology shows ischemic colitis.. As per GI , he had requested surgical consult with to review case.A CTA abdominal angiogram has been ordered. -on prednisone 10mg qid recommend by GI. -Diet per GI -f/u gi/surgical recommendations Leukocytosis, likely secondary to above -Improved. Note patient is also receiving steroids which is also part of leukocytosis. -after d/w , In light of need for surgical review of case and ischemic colitis evidence, will resume antibiotics with anaerobic coverage empirically History of gastritis -Continue PPI Hx of hepatitis C -Reportedly treated with Harvoni in the past Hypertension -persists - start amlodipine Anxiety disorders -PRN Ativan DVT prophylaxis: SCDs PUD prophylaxis: Protonix Disposition: As per GI, surgical consult with has been requested. Follow-up consultants recommendations. Patient was seen in collaboration with Dr. Brown Result Diagram: 01/30/19 0508 01/30/19 0508 Results 24hrs Laboratory Tests Test 01/30/19 05:08 White Blood Count 14.8 #H Red Blood Count 4.42 Hemoglobin 13.7 Hematocrit 40.1 Mean Corpuscular Volume 90.7 Mean Corpuscular Hemoglobin 31.0 Mean Corpuscular Hemoglobin Concent 34.2 Red Cell Distribution Width 12.1 Platelet Count 170 Mean Platelet Volume 10.9 H Immature Granulocytes % 1.000 H Neutrophils % 83.9 H Lymphocytes % 9.0 L Monocytes % 5.8 Eosinophils % 0.0 Basophils % 0.3 Nucleated Red Blood Cells % 0.0 Immature Granulocytes # 0.150 H Neutrophils # 12.4 H Lymphocytes # 1.3 Monocytes # 0.9 Eosinophils # 0.0 Basophils # 0.1 Nucleated Red Blood Cells # 0.0 Sodium Level 139 Potassium Level 3.9 Chloride Level 104 Carbon Dioxide Level 28 Anion Gap 7 Blood Urea Nitrogen 15 Creatinine 0.54 Est Glomerular Filtrat Rate mL/min > 60 Glucose Level 154 Calcium Level 8.8 Total Bilirubin 0.5 Direct Bilirubin 0.00 Indirect Bilirubin 0.5 Aspartate Amino Transf (AST/SGOT) 18 Alanine Aminotransferase (ALT/SGPT) 21 Alkaline Phosphatase 63 Total Protein 7.2 Albumin 3.6 Globulin 3.60 H Albumin/Globulin Ratio 1.00 Exam/Review of Systems Exam Vitals Vital Signs Date Temp Pulse Resp B/P (MAP) Pulse Ox O2 O2 Flow FiO2 Time Delivery Rate 01/30/19 98.5 85 20 158/94 95 Nasal 2.0 08:48 (115) Cannula Intake and Output 01/29/19 01/29/19 01/30/19 1515:00 23:00 07:00 IntakeIntake Total 750 ml 400 ml 420 ml OutputOutput Total 700 ml 500 ml 400 ml BalanceBalance 50 ml -100 ml 20 ml Results Results 24hrs Laboratory Tests Test 01/30/19 05:08 White Blood Count 14.8 #H Red Blood Count 4.42 Hemoglobin 13.7 Hematocrit 40.1 Mean Corpuscular Volume 90.7 Mean Corpuscular Hemoglobin 31.0 Mean Corpuscular Hemoglobin Concent 34.2 Red Cell Distribution Width 12.1 Platelet Count 170 Mean Platelet Volume 10.9 H Immature Granulocytes % 1.000 H Neutrophils % 83.9 H Lymphocytes % 9.0 L Monocytes % 5.8 Eosinophils % 0.0 Basophils % 0.3 Nucleated Red Blood Cells % 0.0 Immature Granulocytes # 0.150 H Neutrophils # 12.4 H Lymphocytes # 1.3 Monocytes # 0.9 Eosinophils # 0.0 Basophils # 0.1 Nucleated Red Blood Cells # 0.0 Sodium Level 139 Potassium Level 3.9 Chloride Level 104 Carbon Dioxide Level 28 Anion Gap 7 Blood Urea Nitrogen 15 Creatinine 0.54 Est Glomerular Filtrat Rate mL/min > 60 Glucose Level 154 Calcium Level 8.8 Total Bilirubin 0.5 Direct Bilirubin 0.00 Indirect Bilirubin 0.5 Aspartate Amino Transf (AST/SGOT) 18 Alanine Aminotransferase (ALT/SGPT) 21 Alkaline Phosphatase 63 Total Protein 7.2 Albumin 3.6 Globulin 3.60 H Albumin/Globulin Ratio 1.00 Medications Medication Current Medications IV Flush (NS 3 ml) 3 ml PER PROTOCOL IV ; Start 01/27/19 at 03:30 Acetaminophen (Tylenol Tab) 650 mg Q6H PRN PO .PAIN 1-3 OR TEMP Last administered on 01/29/19at 15:01; Admin Dose 650 MG; Start 01/27/19 at 03:30 Acetaminophen/ Hydrocodone Bitart ([place] (5/325)) 1 tab Q6H PRN PO .MOD PAIN 4- 6 Last administered on 01/29/19at 21:14; Admin Dose 1 TAB; Start 01/27/19 at 03:30 Hydromorphone HCl (Dilaudid) 1 mg Q3H PRN IV SEVERE PAIN LEVEL 7-10 Last administered on 01/30/19at 09:15; Admin Dose 1 MG; Start 01/27/19 at 05:00 Hyoscyamine (Levsin (Sl)) 0.125 mg Q4H PRN SL ABDOMINAL CRAMPS; Start 01/27/19 at 22:30 Lorazepam (Ativan) 0.5 mg Q8H PRN IV anxiety; Start 01/28/19 at 14:30 Famotidine (Pepcid Iv) 20 mg BID IV Last administered on 01/30/19at 09:15; Admin Dose 20 MG; Start 01/29/19 at 09:00 Prednisone (Prednisone) 10 mg QID PO Last administered on 01/30/19 09:15; Admin Dose 10 MG; Start 01/29/19 at 13:00 Hydralazine HCl (Apresoline) 10 mg Q6H PRN IV ELEVATED BLOOD PRESSURE Last administered on 01/29/19at 15:02; Admin Dose 10 MG; Start 01/29/19 at 15:00 Amlodipine Besylate (Norvasc) 5 mg DAILY PO Last administered on 01/30/19at 09:14; Admin Dose 5 MG; Start 01/30/19 at 09:00 KATRIN CORRAL NP Jan 30, 2019 11:20
[2019-01-30] MEDS: CIPROFLOXACIN 400MG/D5W 200 ML IVPB SCH ×2 (11:30→20:30)
[2019-01-30 11:43] VITALS: BP 124/83; PULSE 73
--- NOTE | 2019-01-30 11:45 | CONS ---
DATE OF ADMISSION: 01/27/2019 DATE OF CONSULTATION: The patient continues to have abdominal pain, no significant rectal bleeding at this time. The patie nt had a colonoscopy done which showed evidence of severe colitis of the transverse colon and splenic flexure and the pathology reported as saying is ischemic colitis. PHYSICAL EXAMINATION: GENERAL: On examination, she is alert. VITAL SIGNS: Temperature 98.5, blood pressure 158/94. CARDIOVASCULAR: Normal heart sounds. RESPIRATORY: Normal breath sounds. ABDOMEN: Shows soft abdomen with no palpable masses, no tenderness, no distention. LABORATORY WORKUP: WBC count is down to 14,800 from 23,600. She was on Cipro and Flagyl, which are discontinued. PLAN: I discussed with the nurse practitioner hospitalist and I have recommended continuing the anti biotics for a few more days. I also think the patient may need to rule out ischemia of the mesenteri c arteries. Hence, I ordered a CT angio of the abdomen. I have also requested Dr. Sierra to see th e patient. We will follow the patient. Dictated By: DIANNE ACKERMAN/BREONNA Conf#: [id number] DID#: [id number] CC: KATRIN CORRAL NP; RILEY OGDEN MD;*End*
[2019-01-30] MEDS: ACETAMINOPHEN 325 MG TAB PO PRN (12:21)
[2019-01-30] MEDS: metroNIDAZOLE 500 MG/NS (PMX) 100 ML IVPB SCH ×2 (14:00→22:09)
[2019-01-30 15:25] VITALS: BP 176/78; PULSE 84; RESP 18
[2019-01-30] MEDS ORDERED: IOHEXOL 300MG/ML 150 ML BTL ONE (17:15)
[2019-01-30] MEDS ORDERED: SOD CHLORIDE 0.9% 100 ML ONE (17:15)
[2019-01-30] MEDS ORDERED: BARIUM SULFATE 0.1% 450 ML BTL (VOLUMEN) PO ONE (17:32)
[2019-01-30 20:00] VITALS: BP 117/68; PULSE 63; RESP 20
[2019-01-31] MEDS: HYDROmorphONE 1 MG/ML SYG IV PRN ×6 (01:24→21:05)
[2019-01-31] MEDS: metroNIDAZOLE 500 MG/NS (PMX) 100 ML IVPB SCH ×3 (05:22→21:47)
[2019-01-31] MEDS: HYDROCODONE/APAP (5/325) TAB PO PRN ×3 (06:26→23:52)
[2019-01-31] MEDS: FAMOTIDINE 20 MG INJ IV SCH ×2 (08:24→20:28)
[2019-01-31] MEDS: predniSONE 10 MG TAB PO SCH ×4 (08:24→20:28)
[2019-01-31] MEDS: AMLODIPINE 2.5 MG TAB PO SCH (08:25)
[2019-01-31] MEDS: CIPROFLOXACIN 400MG/D5W 200 ML IVPB SCH ×2 (08:25→20:28)
[2019-01-31 08:28] VITALS: BP 139/63; PULSE 63; RESP 18
[2019-01-31] MEDS: HYOSCYAMINE 0.125 MG SUBL TAB SL PRN ×2 (08:39→17:41)
--- NOTE | 2019-01-31 11:54 | PN ---
Date/Time of Note Date/Time of Note DATE: 01/31/19 TIME: 11:51 Assessment/Plan VTE Prophylaxis Risk score (from Ns)>0 risk: 6 SCD applied (from Ns): Yes SCD contraindicated: low risk/ambulating Pharmacological prophylaxis: heparin Pharm contraindication: low risk/ambulating Lines/Catheters IV [facility]from [facility] Assessment/Plan Problems: (1) Abdominal pain Status: Acute Comment: Patient with persistent abdominal pain. On the colonoscopy the medical records supervisor was under the impression this was Crohn's disease although the pathologist is read this out as ischemic colitis. CT angiography of the abdomen was nonrevealing. I am in agreement with surgical consultation to evaluate due to the repetitive nature of this patient's attacks and symptoms. Qualifiers: Abdominal location: unspecified location Qualified Codes: R10.9 - Unspecified abdominal pain (2) Acute ischemic colitis Comment: Is a question if this is truly ischemic colitis versus an inflammatory bowel disease. Gastroenterology to help guide us (3) Essential hypertension Comment: She has been placed on amlodipine (4) History of hepatitis C Status: Chronic Comment: Patient reportedly is status post Harvoni treatment. Follow-up testin g has been ordered (5) History of left salpingo-oophorectomy Status: Chronic Comment: If this is actually ischemia due to adhesions this may be the source of this Result Diagram: 01/31/19 0705 01/31/19 0705 Results 24hrs Laboratory Tests Test 01/31/19 07:05 White Blood Count 11.7 #H Red Blood Count 4.52 Hemoglobin 13.8 Hematocrit 40.4 Mean Corpuscular Volume 89.4 Mean Corpuscular Hemoglobin 30.5 Mean Corpuscular Hemoglobin Concent 34.2 Red Cell Distribution Width 12.1 Platelet Count 193 Mean Platelet Volume 10.7 H Immature Granulocytes % 1.100 H Neutrophils % 69.6 Lymphocytes % 17.2 Monocytes % 11.8 H Eosinophils % 0.0 Basophils % 0.3 Nucleated Red Blood Cells % 0.0 Immature Granulocytes # 0.130 H Neutrophils # 8.1 H Lymphocytes # 2.0 Monocytes # 1.4 H Eosinophils # 0.0 Basophils # 0.0 Nucleated Red Blood Cells # 0.0 Sodium Level 138 Potassium Level 4.1 Chloride Level 102 Carbon Dioxide Level 28 Anion Gap 8 Blood Urea Nitrogen 21 H Creatinine 0.65 Est Glomerular Filtrat Rate mL/min > 60 Glucose Level 131 Calcium Level 9.1 Subjective 24 Hr Interval Summary Free Text/Dictation Patient reports she is still having left-sided abdominal pain which is a recurrent chronic problem. Constitutional: no complaints (No fevers chills or sweats) Respiratory: no complaints Cardiovascular: no complaints Gastrointestinal: pain (Left sided abdominal pain) Genitourinary: no complaints Skin: no complaints Neurologic: no complaints Exam/Review of Systems Exam Vitals Vital Signs Date Temp Pulse Resp B/P (MAP) Pulse Ox O2 O2 Flow FiO2 Time Delivery Rate 01/31/19 Nasal 2.0 09:00 Cannula 01/31/19 98.4 63 18 139/63 98 08:28 (88) Intake and Output 01/30/19 01/30/19 01/31/19 1515:00 23:00 07:00 IntakeIntake Total 200 ml 200 ml 350 ml OutputOutput Total 600 ml 400 ml 1200 ml BalanceBalance -400 ml -200 ml -850 ml Exam Older female lying in bed repeats the same questions 4 times Constitutional: alert Neck: supple, non-tender Respiratory: clear to auscultation, normal air movement Cardiovascular: regular rate and rhythm, nl pulses Gastrointestinal: soft, nl liver, spleen, non-tender Results Results 24hrs Laboratory Tests Test 01/31/19 07:05 White Blood Count 11.7 #H Red Blood Count 4.52 Hemoglobin 13.8 Hematocrit 40.4 Mean Corpuscular Volume 89.4 Mean Corpuscular Hemoglobin 30.5 Mean Corpuscular Hemoglobin Concent 34.2 Red Cell Distribution Width 12.1 Platelet Count 193 Mean Platelet Volume 10.7 H Immature Granulocytes % 1.100 H Neutrophils % 69.6 Lymphocytes % 17.2 Monocytes % 11.8 H Eosinophils % 0.0 Basophils % 0.3 Nucleated Red Blood Cells % 0.0 Immature Granulocytes # 0.130 H Neutrophils # 8.1 H Lymphocytes # 2.0 Monocytes # 1.4 H Eosinophils # 0.0 Basophils # 0.0 Nucleated Red Blood Cells # 0.0 Sodium Level 138 Potassium Level 4.1 Chloride Level 102 Carbon Dioxide Level 28 Anion Gap 8 Blood Urea Nitrogen 21 H Creatinine 0.65 Est Glomerular Filtrat Rate mL/min > 60 Glucose Level 131 Calcium Level 9.1 Medications Medication Current Medications IV Flush (NS 3 ml) 3 ml PER PROTOCOL IV ; Start 6/11/19 at 03:30 Acetaminophen (Tylenol Tab) 650 mg Q6H PRN PO .PAIN 1-3 OR TEMP Last administered on 01/30/19 12:21; Admin Dose 650 MG; Start 01/27/19 at 03:30 Acetaminophen/ Hydrocodone Bitart ([place] (5/325)) 1 tab Q6H PRN PO .MOD PAIN 4- 6 Last administered on 01/31/19 06:26; Admin Dose 1 TAB; Start 01/27/19 at 03:30 Hydromorphone HCl (Dilaudid) 1 mg Q3H PRN IV SEVERE PAIN LEVEL 7-10 Last administered on 01/31/19 08:30; Admin Dose 1 MG; Start 01/27/19 at 05:00 Hyoscyamine (Levsin (Sl)) 0.125 mg Q4H PRN SL ABDOMINAL CRAMPS Last administered on 01/31/19 08:39; Admin Dose 0.125 MG; Start 01/27/19 at 22:30 Lorazepam (Ativan) 0.5 mg Q8H PRN IV anxiety; Start 01/28/19 at 14:30 Famotidine (Pepcid Iv) 20 mg BID IV Last administered on 01/31/19 08:24; Admin Dose 20 MG; Start 01/29/19 at 09:00 Prednisone (Prednisone) 10 mg QID PO Last administered on 01/31/19 08:24; Admin Dose 10 MG; Start 01/29/19 at 13:00 Hydralazine HCl (Apresoline) 10 mg Q6H PRN IV ELEVATED BLOOD PRESSURE Last administered on 01/29/19 15:02; Admin Dose 10 MG; Start 01/29/19 at 15:00 Amlodipine Besylate (Norvasc) 5 mg DAILY PO Last administered on 01/31/19 08:25; Admin Dose 5 MG; Start 01/30/19 at 09:00 Metronidazole 100 ml @ 100 mls/hr Q8 IVPB Last administered on 01/31/19 05:22; Admin Dose 100 MLS/HR; Start 01/30/19 at 14:00 Ciprofloxacin/ Dextrose 200 ml @ 200 mls/hr Q12 IVPB Last administered on 01/31/19 08:25; Admin Dose 200 MLS/HR; Start 01/30/19 at 11:30 Clonidine (Catapres) 0.1 mg Q6H PRN PO ELEVATED BLOOD PRESSURE Last administered on 01/30/19at 14:47; Admin Dose 0.1 MG; Start 01/30/19 at 15:00 JASSON PARK MD Jan 31, 2019 11:54
[2019-01-31 14:15] VITALS: BP 146/72; PULSE 67; RESP 18
--- NOTE | 2019-01-31 20:01 | CONS ---
Assessment/Plan Assessment/Plan Hospital Course (Demo Recall) 1. Splenic flexure colitis status post colonoscopy with pathology showing isch emic colitis. Etiology unknown (low flow state, infectious, inflammatory, other) -Judicious fluid management -IV antibiotics -Close monitoring -Needs to stop smoking -If not improving or worsening may need surgical resection 2. Diarrhea, blood per rectum, anemia secondary to above 3. Leukocytosis secondary to above 4. GERD -Nutrition and medication optimization -Stop smoking -Lifestyle optimization Thank you very much for consulting me in this patient's care, Consultation Date/Type/Reason Admit Date/Time Jan 27, 2019 at 03:17 Date of Consultation: Jan 31, 2019 Type of Consult General surgical Reason for Consultation Abdominal pain Splenic flexure colitis Blood per rectum Diarrhea Requesting Provider: DIANNE MORALES MD Date/Time of Note DATE: 01/31/19 TIME: 20:01 Hx of Present Illness Kerline Abraham is a 68yo female with multiple significant comorbidities who presented to the emergency department complaining of rectal bleeding and abdominal pain. She reports similar symptoms for the past 3 years with multiple colonoscopies which were all attributed to her marriage. She denies any fevers or chills. No nausea vomiting. No chest pain or shortness of breath. No cough. No seizure. No visual neurologic changes. No dysuria. Her work-up identifies leukocytosis and CT diagnosis of splenic flexure colitis. She underwent colonoscopy which identified ischemic colitis on pathology. Surgical consult is obtained further evaluation and treatment. 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) Osteoporosis Arthritis Anxiety UTIs Migraines Home Meds Reported Medications Nitrofurantoin Monohyd Macrocr (Macrobid) 100 Mg Capsr, 100 MG PO Q12H 01/27/19 Discontinued Reported Medications [Vitamins] No Conflict Check 06/26/18 [Naproxen] No Conflict Check 06/26/18 [Dicyclomine] No Conflict Check 06/26/18 Medications Current Medications IV Flush (NS 3 ml) 3 ml PER PROTOCOL IV ; Start 01/27/19 at 03:30 Acetaminophen (Tylenol Tab) 650 mg Q6H PRN PO .PAIN 1-3 OR TEMP Last administered on 01/30/19 12:21; Admin Dose 650 MG; Start 01/27/19 at 03:30 Acetaminophen/ Hydrocodone Bitart ([place] (5/325)) 1 tab Q6H PRN PO .MOD PAIN 4- 6 Last administered on 01/31/19 14:14; Admin Dose 1 TAB; Start 01/27/19 at 03:30 Hydromorphone HCl (Dilaudid) 1 mg Q3H PRN IV SEVERE PAIN LEVEL 7-10 Last administered on 01/31/19 16:11; Admin Dose 1 MG; Start 01/27/19 at 05:00 Hyoscyamine (Levsin (Sl)) 0.125 mg Q4H PRN SL ABDOMINAL CRAMPS Last administered on 01/31/19 17:41; Admin Dose 0.125 MG; Start 01/27/19 at 22:30 Lorazepam (Ativan) 0.5 mg Q8H PRN IV anxiety; Start 01/28/19 at 14:30 Famotidine (Pepcid Iv) 20 mg BID IV Last administered on 01/31/19 08:24; Admin Dose 20 MG; Start 01/29/19 at 09:00 Prednisone (Prednisone) 10 mg QID PO Last administered on 01/31/19 17:38; Admin Dose 10 MG; Start 01/29/19 at 13:00 Hydralazine HCl (Apresoline) 10 mg Q6H PRN IV ELEVATED BLOOD PRESSURE Last administered on 01/29/19 15:02; Admin Dose 10 MG; Start 01/29/19 at 15:00 Amlodipine Besylate (Norvasc) 5 mg DAILY PO Last administered on 01/31/19 08:25; Admin Dose 5 MG; Start 01/30/19 at 09:00 Metronidazole 100 ml @ 100 mls/hr Q8 IVPB Last administered on 01/31/19 14:09; Admin Dose 100 MLS/HR; Start 01/30/19 at 14:00 Ciprofloxacin/ Dextrose 200 ml @ 200 mls/hr Q12 IVPB Last administered on 01/31/19 08:25; Admin Dose 200 MLS/HR; Start 01/30/19 at 11:30 Clonidine (Catapres) 0.1 mg Q6H PRN PO ELEVATED BLOOD PRESSURE Last administered on 6/14/19at 14:47; Admin Dose 0.1 MG; Start 01/30/19 at 15:00 Allergies: Coded Allergies: Iron Analogues (Unverified Allergy, Mild, 01/27/19) Past Surgical History IUD removal Tubal ligation Left ovarian surgery Colonoscopies Family History Significant Family History: no pertinent family hx Social History Alcohol Use: none Smoking Status: Current every day smoker Drug Use: heroin (in past) Exam/Review of Systems Exam Vitals Vital Signs Date Temp Pulse Resp B/P (MAP) Pulse Ox O2 O2 Flow FiO2 Time Delivery Rate 01/31/19 98.4 67 18 146/72 98 2.0 14:15 (96) 01/31/19 Nasal 09:00 Cannula Intake and Output 01/30/19 01/30/19 01/31/19 1515:00 23:00 07:00 IntakeIntake Total 200 ml 200 ml 450 ml OutputOutput Total 600 ml 400 ml 1200 ml BalanceBalance -400 ml -200 ml -750 ml Constitutional: alert, oriented; No distress Psych: anxiety; No confusion Head: normocephalic, atraumatic Eyes: nl conjunctiva, EOMI, PERRL; No icteric ENMT: nl external ears & nose, mucosa pink and moist Neck: supple, non-tender; No jvd Respiratory: normal air movement; No congested cough, No labored breathing, No wheezing Cardiovascular: regular rate and rhythm; No edema Gastrointestinal: soft, tender (Left upper quadrant); No distended, No rebound or guarding Musculoskeletal: nl extremities to inspection; No joint tenderness Extremities: normal pulses; No calf tenderness, No edema Neurological: nl mental status, nl speech, nl strength Skin: nl turgor; No rash or lesions, No diaphoresis, No laceration Lymph: nl lymph nodes Results Result Diagram: 01/31/1970401/31/19 0705 Results 24hrs Laboratory Tests Test 01/31/19 07:05 White Blood Count 11.7 #H Red Blood Count 4.52 Hemoglobin 13.8 Hematocrit 40.4 Mean Corpuscular Volume 89.4 Mean Corpuscular Hemoglobin 30.5 Mean Corpuscular Hemoglobin Concent 34.2 Red Cell Distribution Width 12.1 Platelet Count 193 Mean Platelet Volume 10.7 H Immature Granulocytes % 1.100 H Neutrophils % 69.6 Lymphocytes % 17.2 Monocytes % 11.8 H Eosinophils % 0.0 Basophils % 0.3 Nucleated Red Blood Cells % 0.0 Immature Granulocytes # 0.130 H Neutrophils # 8.1 H Lymphocytes # 2.0 Monocytes # 1.4 H Eosinophils # 0.0 Basophils # 0.0 Nucleated Red Blood Cells # 0.0 Sodium Level 138 Potassium Level 4.1 Chloride Level 102 Carbon Dioxide Level 28 Anion Gap 8 Blood Urea Nitrogen 21 H Creatinine 0.65 Est Glomerular Filtrat Rate mL/min > 60 Glucose Level 131 Calcium Level 9.1 Imaging Imaging Angiography: 1. Mural thickening involving the distal transverse colon to the level of the mid descending colon, compatible with an indeterminate colitis. 2. The mesenteric arteries patent. No evidence of colitis on the basis of m esenteric arterial occlusive disease. CT: Mild to moderate thickening of the colon especially involving the splenic flexure represents a nonspecific colitis. Mild to moderate centrolobular emphysema. Mild bibasilar atelectasis. Vascular calcifications reflective of atherosclerosis. Pathology: A-Ascending colon biopsy: -- Normal colon mucosa. -- There is no evidence of colitis or malignancy. B-Transverse and splenic flexure colon biopsies: -- Ischemic colitis with mucosal necrosis and ulceration. -- There is no evidence of malignancy. C-Descending colon biopsy: -- Normal colon mucosa. -- There is no evidence of colitis or malignancy. Medications Medication Current Medications IV Flush (NS 3 ml) 3 ml PER PROTOCOL IV ; Start 01/27/19 at 03:30 Acetaminophen (Tylenol Tab) 650 mg Q6H PRN PO .PAIN 1-3 OR TEMP Last administered on 01/30/19at 12:21; Admin Dose 650 MG; Start 01/27/19 at 03:30 Acetaminophen/ Hydrocodone Bitart ([place] (5/325)) 1 tab Q6H PRN PO .MOD PAIN 4- 6 Last administered on 01/31/19 14:14; Admin Dose 1 TAB; Start 01/27/19 at 03:30 Hydromorphone HCl (Dilaudid) 1 mg Q3H PRN IV SEVERE PAIN LEVEL 7-10 Last administered on 01/31/19 16:11; Admin Dose 1 MG; Start 01/27/19 at 05:00 Hyoscyamine (Levsin (Sl)) 0.125 mg Q4H PRN SL ABDOMINAL CRAMPS Last administered on 01/31/19 17:41; Admin Dose 0.125 MG; Start 01/27/19 at 22:30 Lorazepam (Ativan) 0.5 mg Q8H PRN IV anxiety; Start 01/28/19 at 14:30 Famotidine (Pepcid Iv) 20 mg BID IV Last administered on 01/31/19 08:24; Admin Dose 20 MG; Start 01/29/19 at 09:00 Prednisone (Prednisone) 10 mg QID PO Last administered on 01/31/19 17:38; Admin Dose 10 MG; Start 01/29/19 at 13:00 Hydralazine HCl (Apresoline) 10 mg Q6H PRN IV ELEVATED BLOOD PRESSURE Last administered on 01/29/19 15:02; Admin Dose 10 MG; Start 01/29/19 at 15:00 Amlodipine Besylate (Norvasc) 5 mg DAILY PO Last administered on 01/31/19 08:25; Admin Dose 5 MG; Start 01/30/19 at 09:00 Metronidazole 100 ml @ 100 mls/hr Q8 IVPB Last administered on 01/31/19 14:09; Admin Dose 100 MLS/HR; Start 01/30/19 at 14:00 Ciprofloxacin/ Dextrose 200 ml @ 200 mls/hr Q12 IVPB Last administered on 01/31/19 08:25; Admin Dose 200 MLS/HR; Start 01/30/19 at 11:30 Clonidine (Catapres) 0.1 mg Q6H PRN PO ELEVATED BLOOD PRESSURE Last administered on 01/30/19 14:47; Admin Dose 0.1 MG; Start 01/30/19 at 15:00 ANAHY KEENAN MD Jan 31, 2019 20:01
[2019-01-31 21:16] VITALS: BP 179/94; PULSE 69; RESP 18
[2019-01-31] MEDS ORDERED: hydrALAzine 20 MG INJ IV PRN (21:30)
[2019-01-31 21:50] VITALS: BP 146/72; RESP 18
[2019-02-01] MEDS: HYOSCYAMINE 0.125 MG SUBL TAB SL PRN ×3 (01:41→14:31)
[2019-02-01 02:49] VITALS: BP 143/76; PULSE 74; RESP 20
[2019-02-01] MEDS: HYDROmorphONE 1 MG/ML SYG IV PRN ×6 (03:55→21:44)
[2019-02-01] MEDS: metroNIDAZOLE 500 MG/NS (PMX) 100 ML IVPB SCH ×3 (05:43→22:50)
[2019-02-01 05:51] VITALS: BP 148/68; PULSE 70; RESP 18
[2019-02-01 08:00] VITALS: BP 120/78; PULSE 72; RESP 18
[2019-02-01] MEDS: predniSONE 10 MG TAB PO SCH ×4 (08:29→20:23)
[2019-02-01] MEDS: AMLODIPINE 2.5 MG TAB PO SCH (08:29)
[2019-02-01] MEDS: FAMOTIDINE 20 MG INJ IV SCH ×2 (08:30→20:22)
[2019-02-01] MEDS: CIPROFLOXACIN 400MG/D5W 200 ML IVPB SCH ×2 (08:30→20:22)
--- NOTE | 2019-02-01 09:26 | PN ---
Date/Time of Note Date/Time of Note DATE: 02/01/19 TIME: 09:23 Assessment/Plan VTE Prophylaxis Risk score (from Ns)>0 risk: 6 SCD applied (from Ns): Yes Pharmacological prophylaxis: heparin Lines/Catheters IV Catheter Type (from [facility]): Mid Line Assessment/Plan Problems: (1) Abdominal pain Status: Acute Comment: Been seen in consultation by general surgery-Dr. Sierra. He is recommended vascular risk factor modification aggressively and cessation of smoking. The patient is under the impression that she will undoubtedly need surgery in the near future Qualifiers: Abdominal location: unspecified location Qualified Codes: R10.9 - Unspecified abdominal pain (2) Acute ischemic colitis Status: Chronic Comment: She has been having symptoms for a prolonged period of time. (3) History of hepatitis C Status: Chronic Comment: Noted. Viral RNA is unmeasurable at this time (4) Essential hypertension Status: Chronic Comment: Adequate control. In addition given the vascular disease and the LDL cholesterol above [address] on a statin therapy to bring the LDL down to less than 70 Result Diagram: 02/01/19 0539 02/01/19 0539 Results 24hrs Laboratory Tests Test 02/01/19 05:39 White Blood Count 7.1 # Red Blood Count 4.58 Hemoglobin 13.9 Hematocrit 41.0 Mean Corpuscular Volume 89.5 Mean Corpuscular Hemoglobin 30.3 Mean Corpuscular Hemoglobin Concent 33.9 Red Cell Distribution Width 12.0 Platelet Count 212 Mean Platelet Volume 10.8 H Immature Granulocytes % 3.100 H Neutrophils % 57.5 Lymphocytes % 20.2 Monocytes % 18.1 H Eosinophils % 0.0 Basophils % 1.1 Nucleated Red Blood Cells % 0.0 Immature Granulocytes # 0.220 H Neutrophils # 4.1 Lymphocytes # 1.4 Monocytes # 1.3 H Eosinophils # 0.0 Basophils # 0.1 Nucleated Red Blood Cells # 0.0 Sodium Level 139 Potassium Level 4.0 Chloride Level 103 Carbon Dioxide Level 27 Anion Gap 9 Blood Urea Nitrogen 17 Creatinine 0.58 Est Glomerular Filtrat Rate mL/min > 60 Glucose Level 139 Calcium Level 8.9 Subjective 24 Hr Interval Summary Free Text/Dictation Patient reports continued symptoms of abdominal pain and diarrhea Constitutional: no complaints Respiratory: no complaints Cardiovascular: no complaints Gastrointestinal: pain, diarrhea Exam/Review of Systems Exam Vitals Vital Signs Date Temp Pulse Resp B/P (MAP) Pulse Ox O2 O2 Flow FiO2 Time Delivery Rate 02/01/19 98.0 72 18 120/78 96 Room Air 08:00 (92) 02/01/19 2.0 06:45 Intake and Output 01/31/19 01/31/19 02/01/19 1515:00 23:00 07:00 IntakeIntake Total 880 ml 300 ml 100 ml OutputOutput Total 270 ml BalanceBalance 610 ml 300 ml 100 ml Constitutional: alert, oriented Respiratory: clear to auscultation, normal air movement Cardiovascular: regular rate and rhythm, nl pulses Gastrointestinal: soft, nl liver, spleen, tender (Left-sided abdominal pain) Results Results 24hrs Laboratory Tests Test 02/01/19 05:39 White Blood Count 7.1 # Red Blood Count 4.58 Hemoglobin 13.9 Hematocrit 41.0 Mean Corpuscular Volume 89.5 Mean Corpuscular Hemoglobin 30.3 Mean Corpuscular Hemoglobin Concent 33.9 Red Cell Distribution Width 12.0 Platelet Count 212 Mean Platelet Volume 10.8 H Immature Granulocytes % 3.100 H Neutrophils % 57.5 Lymphocytes % 20.2 Monocytes % 18.1 H Eosinophils % 0.0 Basophils % 1.1 Nucleated Red Blood Cells % 0.0 Immature Granulocytes # 0.220 H Neutrophils # 4.1 Lymphocytes # 1.4 Monocytes # 1.3 H Eosinophils # 0.0 Basophils # 0.1 Nucleated Red Blood Cells # 0.0 Sodium Level 139 Potassium Level 4.0 Chloride Level 103 Carbon Dioxide Level 27 Anion Gap 9 Blood Urea Nitrogen 17 Creatinine 0.58 Est Glomerular Filtrat Rate mL/min > 60 Glucose Level 139 Calcium Level 8.9 Medications Medication Current Medications IV Flush (NS 3 ml) 3 ml PER PROTOCOL IV ; Start 01/27/19 at 03:30 Acetaminophen (Tylenol Tab) 650 mg Q6H PRN PO .PAIN 1-3 OR TEMP Last administered on 01/30/19at 12:21; Admin Dose 650 MG; Start 01/27/19 at 03:30 Acetaminophen/ Hydrocodone Bitart ([place] (5/325)) 1 tab Q6H PRN PO .MOD PAIN 4- 6 Last administered on 01/31/19at 23:52; Admin Dose 1 TAB; Start 01/27/19 at 03:30 Hydromorphone HCl (Dilaudid) 1 mg Q3H PRN IV SEVERE PAIN LEVEL 7-10 Last administered on 02/01/19 08:44; Admin Dose 1 MG; Start 01/27/19 at 05:00 Hyoscyamine (Levsin (Sl)) 0.125 mg Q4H PRN SL ABDOMINAL CRAMPS Last administere d on 02/01/19 08:28; Admin Dose 0.125 MG; Start 01/27/19 at 22:30 Lorazepam (Ativan) 0.5 mg Q8H PRN IV anxiety; Start 01/28/19 at 14:30 Famotidine (Pepcid Iv) 20 mg BID IV Last administered on 02/01/19 08:30; Admin Dose 20 MG; Start 01/29/19 at 09:00 Prednisone (Prednisone) 10 mg QID PO Last administered on 02/01/19 08:29; Admin Dose 10 MG; Start 01/29/19 at 13:00 Amlodipine Besylate (Norvasc) 5 mg DAILY PO Last administered on 02/01/19 08:29; Admin Dose 5 MG; Start 01/30/19 at 09:00 Metronidazole 100 ml @ 100 mls/hr Q8 IVPB Last administered on 02/01/19 05:43; Admin Dose 100 MLS/HR; Start 01/30/19 at 14:00 Ciprofloxacin/ Dextrose 200 ml @ 200 mls/hr Q12 IVPB Last administered on 02/01/19 08:30; Admin Dose 200 MLS/HR; Start 01/30/19 at 11:30 Clonidine (Catapres) 0.1 mg Q6H PRN PO ELEVATED BLOOD PRESSURE Last administered on 01/30/19 14:47; Admin Dose 0.1 MG; Start 01/30/19 at 15:00 Hydralazine HCl (Apresoline) 10 mg Q4H PRN IV ELEVATED BLOOD PRESSURE Last administered on 01/31/19 23:52; Admin Dose 10 MG; Start 01/31/19 at 21:30 Atorvastatin Calcium (Lipitor) 20 mg HS PO ; Start 02/01/19 at 21:00; Status UNV Pentoxifylline (Trental) 400 mg TID PO ; Start 02/01/19 at 13:00; Status JASSON BOUCHER MD Feb 01, 2019 09:26
[2019-02-01] MEDS: PENTOXIFYLLINE (SR) 400 MG TAB PO SCH ×2 (12:21→20:23)
[2019-02-01 14:00] VITALS: BP 111/70; PULSE 87; RESP 18
--- NOTE | 2019-02-01 15:02 | PN ---
Date/Time of Note Date/Time of Note DATE: 02/01/19 TIME: 14:57 Assessment/Plan Lines/Catheters IV Catheter Type (from [facility]): Mid Line Assessment/Plan Chief Complaint/Hosp Course 1. Splenic flexure colitis status post colonoscopy with pathology showing ischemic colitis. Etiology unknown (low flow state, infectious, inflammatory, other) -Judicious fluid management -IV antibiotics -Close monitoring -Needs to stop smoking -If not improving or worsening may need surgical resection 2. Diarrhea, blood per rectum, anemia secondary to above 3. Leukocytosis secondary to above 4. GERD -Nutrition and medication optimization -Stop smoking -Lifestyle optimization Thank you Subjective 24 Hr Interval Summary Loose bms. No fevers or chills. No nausea, vomiting. No chest pain or shortness of breath. No cough. No seizure. No visual, neurologic changes. No dysuria Exam/Review of Systems Vital Signs Vitals Vital Signs Date Temp Pulse Resp B/P (MAP) Pulse Ox O2 O2 Flow FiO2 Time Delivery Rate 02/01/19 97.9 87 18 111/70 98 14:00 (84) 02/01/19 Nasal 2 09:41 Cannula Intake and Output 01/31/19 01/31/19 02/01/19 1515:00 23:00 07:00 IntakeIntake Total 880 ml 400 ml 100 ml OutputOutput Total 270 ml BalanceBalance 610 ml 400 ml 100 ml Exam Free Text/Dictation Constitutional: alert, oriented; No distress Psych: anxiety; No confusion Head: normocephalic, atraumatic Eyes: nl conjunctiva, EOMI, PERRL; No icteric ENMT: nl external ears & nose, mucosa pink and moist Neck: supple, non-tender; No jvd Respiratory: normal air movement; No congested cough, No labored breathing, No wheezing Cardiovascular: regular rate and rhythm; No edema Gastrointestinal: soft, tender (Left upper quadrant); No distended, No rebound or guarding Musculoskeletal: nl extremities to inspection; No joint tenderness Extremities: normal pulses; No calf tenderness, No edema Neurological: nl mental status, nl speech, nl strength Skin: nl turgor; No rash or lesions, No diaphoresis, No laceration Lymph: nl lymph nodes Results Result Diagram: 02/01/19 0539 02/01/19 0539 ANAHY KEENAN MD Feb 01, 2019 15:02
[2019-02-01 20:23] VITALS: BP 141/70; PULSE 70; RESP 18
[2019-02-01] MEDS: ATORVASTATIN 40 MG TAB PO SCH (20:23)
[2019-02-02] MEDS: HYDROmorphONE 1 MG/ML SYG IV PRN ×7 (00:52→22:24)
[2019-02-02 02:38] VITALS: BP 106/63; PULSE 67; RESP 16
[2019-02-02] MEDS: metroNIDAZOLE 500 MG/NS (PMX) 100 ML IVPB SCH (05:32)
[2019-02-02] MEDS: FAMOTIDINE 20 MG INJ IV SCH ×2 (08:29→21:27)
[2019-02-02] MEDS: predniSONE 10 MG TAB PO SCH ×4 (08:29→21:27)
[2019-02-02] MEDS: CIPROFLOXACIN 400MG/D5W 200 ML IVPB SCH (08:30)
[2019-02-02] MEDS: AMLODIPINE 2.5 MG TAB PO SCH (08:30)
[2019-02-02] MEDS: PENTOXIFYLLINE (SR) 400 MG TAB PO SCH ×3 (08:30→21:27)
[2019-02-02 08:33] VITALS: BP 144/73; PULSE 77; RESP 17
--- NOTE | 2019-02-02 12:12 | PN ---
Date/Time of Note Date/Time of Note DATE: 02/02/19 TIME: 12:10 Assessment/Plan Lines/Catheters IV Catheter Type (from Nrs): Mid Line Assessment/Plan Chief Complaint/Hosp Course 1. Splenic flexure colitis status post colonoscopy with pathology showing ischemic colitis. Etiology unknown (low flow state, infectious, inflammatory, other). Leukocytosis with bandemia. Stool + coliforms. -Judicious fluid management -IV antibiotics > ID eval -Close monitoring -Stop smoking -If not improving or worsening may need surgical resection 2. Diarrhea, blood per rectum, anemia secondary to above 3. Leukocytosis secondary to above 4. GERD -Nutrition and medication optimization -Stop smoking -Lifestyle optimization Thank you Subjective 24 Hr Interval Summary Loose bm yesterday. Pain was 9 prior to narcotics. Leukocytosis and bandemia. No fevers or chills. No nausea, vomiting. No chest pain or shortness of breath . No cough. No seizure. No visual, neurologic changes. No dysuria Exam/Review of Systems Vital Signs Vitals Vital Signs Date Temp Pulse Resp B/P (MAP) Pulse Ox O2 O2 Flow FiO2 Time Delivery Rate 02/02/19 Nasal 2.0 09:44 Cannula 02/02/19 98.2 77 17 144/73 99 08:33 (96) Intake and Output 02/01/19 02/01/19 02/02/19 1515:00 23:00 07:00 IntakeIntake Total 300 ml 600 ml 200 ml BalanceBalance 300 ml 600 ml 200 ml Exam Free Text/Dictation Constitutional: alert, oriented; No distress Psych: anxiety; No confusion Head: normocephalic, atraumatic Eyes: nl conjunctiva, EOMI, PERRL; No icteric ENMT: nl external ears & nose, mucosa pink and moist Neck: supple, non-tender; No jvd Respiratory: normal air movement; No congested cough, No labored breathing, No wheezing Cardiovascular: regular rate and rhythm; No edema Gastrointestinal: soft, tender (Left abdomen); No distended, No rebound or guarding Musculoskeletal: nl extremities to inspection; No joint tenderness Extremities: normal pulses; No calf tenderness, No edema Neurological: nl mental status, nl speech, nl strength Skin: nl turgor; No rash or lesions, No diaphoresis, No laceration Lymph: nl lymph nodes Results Result Diagram: 02/02/19 0459 02/02/19 0459 ANAHY KEENAN MD Feb 02, 2019 12:12
--- NOTE | 2019-02-02 12:23 | PN ---
Date/Time of Note Date/Time of Note DATE: 02/02/19 TIME: 12:18 Assessment/Plan VTE Prophylaxis Risk score (from Nsg)>0 risk: 6 SCD applied (from Nsg): Yes Pharmacological prophylaxis: NA/contraindicated Pharm contraindication: low risk/ambulating Lines/Catheters IV Catheter Type (from Nrsg): Mid Line Assessment/Plan Hospital Course SUBJECTIVE: Overall, patient feels improvement in abdominal pain. She is with no fevers. OBJECTIVE: Vital signs-see below PHYSICAL EXAM: Constitutional: Adequately built,not in acute distress. HEENT: Head atraumatic and normocephalic. Eyes: Extraocular muscles intact. Anicteric sclerae. Pupils equal bilaterally, reactive to light. NECK: Supple without lymph node. CHEST: Clear and good breath sounds equally. No wheezing. No rhonchi. HEART: S1, S2. Regular rate and rhythm. ABDOMEN: Tender to all 4 quadrants. Soft with no rebound tenderness. Bowel sounds were present. EXTREMITIES: No cyanosis, clubbing or edema. NEUROLOGIC: Alert and oriented x3. No focal deficit. No sensory deficit. PSYCHOSOCIAL: No signs of depression. INTEGUMENTARY: No open wounds. ASSESSMENT AND PLAN:68 yo F w/ reported history of Crohn's disease not on any medications, brought lead last colonoscopy in August 2018, here with rectal bleeding and generalized lower quadrant abdominal pain, found to have CT evidence of colitis. Colitis -s/p colonoscopy=> shows inflammatory otitis/Crohn's disease Bx shows ischemic colitis -CTA abdominal angiography with no evidence of mesenteric ischemia -on prednisone 10mg qid recommend by GI. -Diet as tolerated Leukocytosis, likely secondary to above -on Cipro/Flagyl. Note patient is also receiving steroids which is also part of leukocytosis. -ID consult History of gastritis -Continue PPI Hx of hepatitis C -Reportedly treated with Harvoni in the past Hypertension -Stable. Continue amlodipine. Anxiety disorders -PRN Ativan DVT prophylaxis: SCDs PUD prophylaxis: Protonix Disposition: Surgeon recommended further ID evaluation as such we will place ID consult. Follow-up consultants recommendations. Patient was seen in collaboration with Dr. Daniels Result Diagram: 02/02/19 0459 02/02/19 0459 Results 24hrs Laboratory Tests Test 02/02/19 04:59 02/02/19 09:17 White Blood Count 10.9 #H Red Blood Count 4.81 Hemoglobin 14.6 Hematocrit 43.1 Mean Corpuscular Volume 89.6 Mean Corpuscular Hemoglobin 30.4 Mean Corpuscular Hemoglobin Concent 33.9 Red Cell Distribution Width 12.1 Platelet Count 241 Mean Platelet Volume 10.5 H Immature Granulocytes % 3.700 H Neutrophils % Segmented Neutrophils % (Manual) 47 Band Neutrophils % (Manual) 23 H Lymphocytes % Lymphocytes % (Manual) 14 L Monocytes % Monocytes % (Manual) 14 H Eosinophils % Basophils % Metamyelocytes % (manual) 1 H Promyelocytes % (Manual) 1 H Nucleated Red Blood Cells % 0.0 Immature Granulocytes # 0.400 H Neutrophils # Neutrophils # (Manual) 5.4 Band Neutrophils # 2.5 H Lymphocytes (Manual) 1.5 Lymphocytes # Monocytes # Monocytes # (Manual) 1.5 H Eosinophils # Basophils # Metamyelocytes # 0.1 H Promyelocytes # 0.1 H Nucleated Red Blood Cells # Platelet Estimate NORMAL Sodium Level 139 Potassium Level 4.8 Chloride Level 100 Carbon Dioxide Level 31 Anion Gap 8 Blood Urea Nitrogen 17 Creatinine 0.76 Est Glomerular Filtrat Rate mL/min > 60 Glucose Level 141 Calcium Level 9.6 Lab Scanned Report REFERENCE LAB Exam/Review of Systems Exam Vitals Vital Signs Date Temp Pulse Resp B/P (MAP) Pulse Ox O2 O2 Flow FiO2 Time Delivery Rate 02/02/19 Nasal 2.0 09:44 Cannula 02/02/19 98.2 77 17 144/73 99 08:33 (96) Intake and Output 02/01/19 02/01/19 02/02/19 1515:00 23:00 07:00 IntakeIntake Total 300 ml 600 ml 200 ml BalanceBalance 300 ml 600 ml 200 ml Results Results 24hrs Laboratory Tests Test 02/02/19 04:59 02/02/19 09:17 White Blood Count 10.9 #H Red Blood Count 4.81 Hemoglobin 14.6 Hematocrit 43.1 Mean Corpuscular Volume 89.6 Mean Corpuscular Hemoglobin 30.4 Mean Corpuscular Hemoglobin Concent 33.9 Red Cell Distribution Width 12.1 Platelet Count 241 Mean Platelet Volume 10.5 H Immature Granulocytes % 3.700 H Neutrophils % Segmented Neutrophils % (Manual) 47 Band Neutrophils % (Manual) 23 H Lymphocytes % Lymphocytes % (Manual) 14 L Monocytes % Monocytes % (Manual) 14 H Eosinophils % Basophils % Metamyelocytes % (manual) 1 H Promyelocytes % (Manual) 1 H Nucleated Red Blood Cells % 0.0 Immature Granulocytes # 0.400 H Neutrophils # Neutrophils # (Manual) 5.4 Band Neutrophils # 2.5 H Lymphocytes (Manual) 1.5 Lymphocytes # Monocytes # Monocytes # (Manual) 1.5 H Eosinophils # Basophils # Metamyelocytes # 0.1 H Promyelocytes # 0.1 H Nucleated Red Blood Cells # Platelet Estimate NORMAL Sodium Level 139 Potassium Level 4.8 Chloride Level 100 Carbon Dioxide Level 31 Anion Gap 8 Blood Urea Nitrogen 17 Creatinine 0.76 Est Glomerular Filtrat Rate mL/min > 60 Glucose Level 141 Calcium Level 9.6 Lab Scanned Report REFERENCE LAB Medications Medication Current Medications IV Flush (NS 3 ml) 3 ml PER PROTOCOL IV ; Start 01/27/19 at 03:30 Acetaminophen (Tylenol Tab) 650 mg Q6H PRN PO .PAIN 1-3 OR TEMP Last administered on 01/30/19at 12:21; Admin Dose 650 MG; Start 01/27/19 at 03:30 Acetaminophen/ Hydrocodone Bitart ([place] (5/325)) 1 tab Q6H PRN PO .MOD PAIN 4- 6 Last administered on 01/31/19at 23:52; Admin Dose 1 TAB; Start 01/27/19 at 03:30 Hydromorphone HCl (Dilaudid) 1 mg Q3H PRN IV SEVERE PAIN LEVEL 7-10 Last administered on 02/02/19at 08:47; Admin Dose 1 MG; Start 01/27/19 at 05:00 Hyoscyamine (Levsin (Sl)) 0.125 mg Q4H PRN SL ABDOMINAL CRAMPS Last administered on 02/01/19at 14:31; Admin Dose 0.125 MG; Start 01/27/19 at 22:30 Lorazepam (Ativan) 0.5 mg Q8H PRN IV anxiety; Start 01/28/19 at 14:30 Famotidine (Pepcid Iv) 20 mg BID IV Last administered on 02/02/19at 08:29; Admin Dose 20 MG; Start 01/29/19 at 09:00 Prednisone (Prednisone) 10 mg QID PO Last administered on 02/02/19 08:29; Admin Dose 10 MG; Start 01/29/19 at 13:00 Amlodipine Besylate (Norvasc) 5 mg DAILY PO Last administered on 02/02/19 08:30; Admin Dose 5 MG; Start 01/30/19 at 09:00 Metronidazole 100 ml @ 100 mls/hr Q8 IVPB Last administered on 02/02/19 05:32; Admin Dose 100 MLS/HR; Start 01/30/19 at 14:00 Ciprofloxacin/ Dextrose 200 ml @ 200 mls/hr Q12 IVPB Last administered on 08:30; Admin Dose 200 MLS/HR; Start 01/30/19 at 11:30 Clonidine (Catapres) 0.1 mg Q6H PRN PO ELEVATED BLOOD PRESSURE Last administered on 01/30/19 14:47; Admin Dose 0.1 MG; Start 01/30/19 at 15:00 Hydralazine HCl (Apresoline) 10 mg Q4H PRN IV ELEVATED BLOOD PRESSURE Last administered on 01/31/19 23:52; Admin Dose 10 MG; Start 01/31/19 at 21:30 Atorvastatin Calcium (Lipitor) 20 mg HS PO Last administered on 02/01/19 20:23; Admin Dose 20 MG; Start 02/01/19 at 21:00 Pentoxifylline (Trental) 400 mg TID PO Last administered on 02/02/19 08:30; Admin Dose 400 MG; Start 02/01/19 at 13:00 KATRIN CORRAL NP Feb 02, 2019 12:23
--- NOTE | 2019-02-02 13:23 | CONS ---
Assessment/Plan Assessment/Plan Hospital Course (Demo Recall) 1) ischemic colitis pt had bx with colonoscopy that confirms this angiography of mesenteric arteries did no show obstruction she has L sided colonic wall thickening and either her continued pain is due to ongoing ischemia or a secondary bacterial colitis that is not responding to cipro/flagyl d/c cipro/flagyl and start zosyn if infection is the issue then in the next few days we should see some improvement start probiotics check procalcitonin in a.m. pt was recently started on trental 2) hx of hep C that has been successfully treated pt states she has liver fibrosis and fatty liver but no cirrhosis INR is minimally elevated 3) Hx of SBE in the 's 4) IBS Consultation Date/Type/Reason Admit Date/Time Jan 27, 2019 at 03:17 Date of Consultation: Feb 02, 2019 Type of Consult ID Date/Time of Note DATE: 02/02/19 TIME: 13:15 Hx of Present Illness pt was admitted due to abd pain, N, V and bloody stools she had recently been on macrobid for a possible UTI the vomiting has improved but she still has L sided abd pain no SOB, cough, coryza, dysphagia she has a COTTRELL on R frontal area that she relates to her high B/P no joint swellings no dysuria but she was having urine urgency no rashes Past Medical History hep C treated, SBE, drug abuse, IBS, ?crohn's Home Meds Reported Medications Nitrofurantoin Monohyd Macrocr (Macrobid) 100 Mg Capsr, 100 MG PO Q12H 01/27/19 Discontinued Reported Medications [Vitamins] No Conflict Check 06/26/18 [Naproxen] No Conflict Check 06/26/18 [Dicyclomine] No Conflict Check 06/26/18 Medications Current Medications IV Flush (NS 3 ml) 3 ml PER PROTOCOL IV ; Start 01/27/19 at 03:30 Acetaminophen (Tylenol Tab) 650 mg Q6H PRN PO .PAIN 1-3 OR TEMP Last administered on 01/30/19at 12:21; Admin Dose 650 MG; Start 01/27/19 at 03:30 Acetaminophen/ Hydrocodone Bitart ([place] (5/325)) 1 tab Q6H PRN PO .MOD PAIN 4- 6 Last administered on 01/31/19at 23:52; Admin Dose 1 TAB; Start 01/27/19 at 03:30 Hydromorphone HCl (Dilaudid) 1 mg Q3H PRN IV SEVERE PAIN LEVEL 7-10 Last administered on 02/02/19 12:19; Admin Dose 1 MG; Start 01/27/19 at 05:00 Hyoscyamine (Levsin (Sl)) 0.125 mg Q4H PRN SL ABDOMINAL CRAMPS Last administered on 02/01/19 14:31; Admin Dose 0.125 MG; Start 01/27/19 at 22:30 Lorazepam (Ativan) 0.5 mg Q8H PRN IV anxiety; Start 01/28/19 at 14:30 Famotidine (Pepcid Iv) 20 mg BID IV Last administered on 02/02/19 08:29; Admin Dose 20 MG; Start 01/29/19 at 09:00 Prednisone (Prednisone) 10 mg QID PO Last administered on 02/02/19 12:19; Admin Dose 10 MG; Start 01/29/19 at 13:00 Amlodipine Besylate (Norvasc) 5 mg DAILY PO Last administered on 02/02/19 08:30; Admin Dose 5 MG; Start 01/30/19 at 09:00 Metronidazole 100 ml @ 100 mls/hr Q8 IVPB Last administered on 02/02/19 05:32; Admin Dose 100 MLS/HR; Start 01/30/19 at 14:00 Ciprofloxacin/ Dextrose 200 ml @ 200 mls/hr Q12 IVPB Last administered on 02/02/19 08:30; Admin Dose 200 MLS/HR; Start 01/30/19 at 11:30 Clonidine (Catapres) 0.1 mg Q6H PRN PO ELEVATED BLOOD PRESSURE Last administered on 01/30/19 14:47; Admin Dose 0.1 MG; Start 01/30/19 at 15:00 Hydralazine HCl (Apresoline) 10 mg Q4H PRN IV ELEVATED BLOOD PRESSURE Last administered on 01/31/19 23:52; Admin Dose 10 MG; Start 01/31/19 at 21:30 Atorvastatin Calcium (Lipitor) 20 mg HS PO Last administered on 02/01/19 20:23; Admin Dose 20 MG; Start 02/01/19 at 21:00 Pentoxifylline (Trental) 400 mg TID PO Last administered on 02/02/19at 12:19; Admin Dose 400 MG; Start 02/01/19 at 13:00 Allergies: Coded Allergies: Iron Analogues (Unverified Allergy, Mild, 01/27/19) Social History Alcohol Use: none Smoking Status: Current every day smoker Drug Use: heroin (in past) Exam/Review of Systems Exam Vitals Vital Signs Date Temp Pulse Resp B/P (MAP) Pulse Ox O2 O2 Flow FiO2 Time Delivery Rate 02/02/19 Nasal 2.0 09:44 Cannula 02/02/19 98.2 77 17 144/73 99 08:33 (96) Intake and Output 02/01/19 02/01/19 02/02/19 1515:00 23:00 07:00 IntakeIntake Total 300 ml 600 ml 200 ml BalanceBalance 300 ml 600 ml 200 ml Constitutional: alert, oriented Eyes: nl sclera ENMT: other (slight white coating to tongue in the center of tongue) Respiratory: clear to auscultation Cardiovascular: regular rate and rhythm Gastrointestinal: soft, other (L sided pain) Musculoskeletal: nl extremities to inspection Neurological: other (non focal) Results Result Diagram: 02/02/19 0459 02/02/19 0459 Results 24hrs Laboratory Tests Test 02/02/19 04:59 02/02/19 09:17 White Blood Count 10.9 #H Red Blood Count 4.81 Hemoglobin 14.6 Hematocrit 43.1 Mean Corpuscular Volume 89.6 Mean Corpuscular Hemoglobin 30.4 Mean Corpuscular Hemoglobin Concent 33.9 Red Cell Distribution Width 12.1 Platelet Count 241 Mean Platelet Volume 10.5 H Immature Granulocytes % 3.700 H Neutrophils % Segmented Neutrophils % (Manual) 47 Band Neutrophils % (Manual) 23 H Lymphocytes % Lymphocytes % (Manual) 14 L Monocytes % Monocytes % (Manual) 14 H Eosinophils % Basophils % Metamyelocytes % (manual) 1 H Promyelocytes % (Manual) 1 H Nucleated Red Blood Cells % 0.0 Immature Granulocytes # 0.400 H Neutrophils # Neutrophils # (Manual) 5.4 Band Neutrophils # 2.5 H Lymphocytes (Manual) 1.5 Lymphocytes # Monocytes # Monocytes # (Manual) 1.5 H Eosinophils # Basophils # Metamyelocytes # 0.1 H Promyelocytes # 0.1 H Nucleated Red Blood Cells # Platelet Estimate NORMAL Sodium Level 139 Potassium Level 4.8 Chloride Level 100 Carbon Dioxide Level 31 Anion Gap 8 Blood Urea Nitrogen 17 Creatinine 0.76 Est Glomerular Filtrat Rate mL/min > 60 Glucose Level 141 Calcium Level 9.6 Lab Scanned Report REFERENCE LAB Medications Medication Current Medications IV Flush (NS 3 ml) 3 ml PER PROTOCOL IV ; Start 01/27/19 at 03:30 Acetaminophen (Tylenol Tab) 650 mg Q6H PRN PO .PAIN 1-3 OR TEMP Last administered on 01/30/19 12:21; Admin Dose 650 MG; Start 01/27/19 at 03:30 Acetaminophen/ Hydrocodone Bitart ([place] (5/325)) 1 tab Q6H PRN PO .MOD PAIN 4- 6 Last administered on 01/31/19 23:52; Admin Dose 1 TAB; Start 01/27/19 at 03:30 Hydromorphone HCl (Dilaudid) 1 mg Q3H PRN IV SEVERE PAIN LEVEL 7-10 Last administered on 02/02/19 12:19; Admin Dose 1 MG; Start 01/27/19 at 05:00 Hyoscyamine (Levsin (Sl)) 0.125 mg Q4H PRN SL ABDOMINAL CRAMPS Last administered on 02/01/19 14:31; Admin Dose 0.125 MG; Start 01/27/19 at 22:30 Lorazepam (Ativan) 0.5 mg Q8H PRN IV anxiety; Start 01/28/19 at 14:30 Famotidine (Pepcid Iv) 20 mg BID IV Last administered on 02/02/19 08:29; Admin Dose 20 MG; Start 01/29/19 at 09:00 Prednisone (Prednisone) 10 mg QID PO Last administered on 02/02/19 12:19; Admin Dose 10 MG; Start 01/29/19 at 13:00 Amlodipine Besylate (Norvasc) 5 mg DAILY PO Last administered on 02/02/19 08:30; Admin Dose 5 MG; Start 01/30/19 at 09:00 Metronidazole 100 ml @ 100 mls/hr Q8 IVPB Last administered on 02/02/19 05:32; Admin Dose 100 MLS/HR; Start 01/30/19 at 14:00 Ciprofloxacin/ Dextrose 200 ml @ 200 mls/hr Q12 IVPB Last administered on 02/02/19 08:30; Admin Dose 200 MLS/HR; Start 01/30/19 at 11:30 Clonidine (Catapres) 0.1 mg Q6H PRN PO ELEVATED BLOOD PRESSURE Last administered on 01/30/19 14:47; Admin Dose 0.1 MG; Start 01/30/19 at 15:00 Hydralazine HCl (Apresoline) 10 mg Q4H PRN IV ELEVATED BLOOD PRESSURE Last administered on 01/31/19at 23:52; Admin Dose 10 MG; Start 01/31/19 at 21:30 Atorvastatin Calcium (Lipitor) 20 mg HS PO Last administered on 02/01/19 20:23; Admin Dose 20 MG; Start 02/01/19 at 21:00 Pentoxifylline (Trental) 400 mg TID PO Last administered on 02/02/19 12:19; Admin Dose 400 MG; Start 02/01/19 at 13:00 BRIANA CASTILLO MD Feb 02, 2019 13:23
[2019-02-02] MEDS: PIPER-TAZO 3.375 GM IV (PMX) 100 ML IVPB SCH ×2 (13:51→17:13)
[2019-02-02 14:44] VITALS: BP 123/68; PULSE 77; RESP 19
[2019-02-02 20:00] VITALS: BP 148/85; PULSE 80; RESP 18
[2019-02-02] MEDS: L ACIDOPHIL/B LACTIS/B LONGUM CAPSULE PO SCH (21:27)
[2019-02-02] MEDS: ATORVASTATIN 40 MG TAB PO SCH (21:27)
[2019-02-03] MEDS: PIPER-TAZO 3.375 GM IV (PMX) 100 ML IVPB SCH ×5 (01:08→23:49)
[2019-02-03 02:00] VITALS: BP 168/89; PULSE 64; RESP 18
[2019-02-03] MEDS ORDERED: ZINC SULFATE 220 MG CAP PO ONE (02:00)
[2019-02-03] MEDS: HYDROmorphONE 1 MG/ML SYG IV PRN ×7 (02:05→21:35)
--- NOTE | 2019-02-03 06:15 | CONS ---
Assessment/Plan Assessment/Plan Hospital Course (Demo Recall) 1) ischemic colitis pt had bx with colonoscopy that confirms this angiography of mesenteric arteries did no show obstruction she has L sided colonic wall thickening and either her continued pain is due to ongoing ischemia or a secondary bacterial colitis that is not responding to cipro/flagyl d/c cipro/flagyl and start zosyn if infection is the issue then in the next few days we should see some improvement start probiotics check procalcitonin in a.m. pt was recently started on trental 02/03 - continue with zosyn for possible secondary bacterial infection due to ischemia if pain is not improving in next few days may need surgery for ischemic area 2) hx of hep C that has been successfully treated pt states she has liver fibrosis and fatty liver but no cirrhosis INR is minimally elevated 3) Hx of SBE in the 's 4) IBS Consultation Date/Type/Reason Admit Date/Time Jan 27, 2019 at 03:17 Initial Consult Date 02/02/19 Type of Consult ID Requesting Provider: DIANNE MORALES MD Date/Time of Note DATE: 02/03/19 TIME: 06:13 24 HR Interval Summary Free Text/Dictation pt was able to eat dinner well last night without increase in abd pain still has abd pain especially when she tries to poop one stool overnight that was watery but no blood no SOB nausea but no vomiting Exam/Review of Systems Exam Vitals Vital Signs Date Temp Pulse Resp B/P (MAP) Pulse Ox O2 O2 Flow FiO2 Time Delivery Rate 02/03/19 98.1 64 18 168/89 99 02:00 (115) 02/03/19 2.0 01:01 02/02/19 Nasal 20:00 Cannula Intake and Output 02/02/19 02/02/19 02/03/19 1414:59 22:59 06:59 IntakeIntake Total 1020 ml 340 ml 100 ml OutputOutput Total 250 ml BalanceBalance 770 ml 340 ml 100 ml Constitutional: alert Eyes: nl sclera ENMT: mucosa pink and moist Respiratory: clear to auscultation Cardiovascular: regular rate and rhythm Gastrointestinal: soft, tender (tender on L side) Results Result Diagram: 02/02/19 0459 02/02/19 0459 Results 24hrs Laboratory Tests Test 02/02/19 09:17 Lab Scanned Report REFERENCE LAB Medications Medication Current Medications IV Flush (NS 3 ml) 3 ml PER PROTOCOL IV ; Start 01/27/19 at 03:30 Acetaminophen (Tylenol Tab) 650 mg Q6H PRN PO .PAIN 1-3 OR TEMP Last administered on 01/30/19 12:21; Admin Dose 650 MG; Start 01/27/19 at 03:30 Acetaminophen/ Hydrocodone Bitart ([place] (5/325)) 1 tab Q6H PRN PO .MOD PAIN 4- 6 Last administered on 01/31/19 23:52; Admin Dose 1 TAB; Start 01/27/19 at 03:30 Hydromorphone HCl (Dilaudid) 1 mg Q3H PRN IV SEVERE PAIN LEVEL 7-10 Last administered on 02/03/19 02:05; Admin Dose 1 MG; Start 01/27/19 at 05:00 Hyoscyamine (Levsin (Sl)) 0.125 mg Q4H PRN SL ABDOMINAL CRAMPS Last administ ered on 02/01/19 14:31; Admin Dose 0.125 MG; Start 01/27/19 at 22:30 Lorazepam (Ativan) 0.5 mg Q8H PRN IV anxiety; Start 01/28/19 at 14:30 Famotidine (Pepcid Iv) 20 mg BID IV Last administered on 02/02/19 21:27; Admin Dose 20 MG; Start 01/29/19 at 09:00 Prednisone (Prednisone) 10 mg QID PO Last administered on 02/02/19 21:27; Admin Dose 10 MG; Start 01/29/19 at 13:00 Amlodipine Besylate (Norvasc) 5 mg DAILY PO Last administered on 02/02/19 08:30; Admin Dose 5 MG; Start 01/30/19 at 09:00 Clonidine (Catapres) 0.1 mg Q6H PRN PO ELEVATED BLOOD PRESSURE Last administered on 02/03/19 04:02; Admin Dose 0.1 MG; Start 01/30/19 at 15:00 Hydralazine HCl (Apresoline) 10 mg Q4H PRN IV ELEVATED BLOOD PRESSURE Last administered on 01/31/19 23:52; Admin Dose 10 MG; Start 01/31/19 at 21:30 Atorvastatin Calcium (Lipitor) 20 mg HS PO Last administered on 02/02/19at 21:27; Admin Dose 20 MG; Start 02/01/19 at 21:00 Pentoxifylline (Trental) 400 mg TID PO Last administered on 02/02/19at 21:27; Ad min Dose 400 MG; Start 02/01/19 at 13:00 Lactobacillus Acidophilus (Florajen3 Capsule) 1 each BID PO Last administered on 02/02/19at 21:27; Admin Dose 1 EACH; Start 02/02/19 at 21:00 Piperacillin Sod/ Tazobactam Sod 100 ml @ 200 mls/hr Q6 IVPB Last administered on 02/03/19 05:27; Admin Dose 200 MLS/HR; Start 02/02/19 at 13:30 Multivitamins/ Minerals (Theragran-M) 1 tab DAILY PO ; Start 02/03/19 at 09:00 Zinc Sulfate (Zinc Sulfate) 220 mg DAILY PO ; Start 02/03/19 at 09:00 BRIANA CASTILLO MD Feb 03, 2019 06:15
[2019-02-03 08:24] VITALS: BP 118/63; PULSE 62; RESP 16
[2019-02-03] MEDS: ZINC SULFATE 220 MG CAP PO SCH (09:29)
[2019-02-03] MEDS: PENTOXIFYLLINE (SR) 400 MG TAB PO SCH ×3 (09:29→21:31)
[2019-02-03] MEDS: L ACIDOPHIL/B LACTIS/B LONGUM CAPSULE PO SCH ×2 (09:29→21:29)
[2019-02-03] MEDS: predniSONE 10 MG TAB PO SCH ×4 (09:30→22:47)
[2019-02-03] MEDS: FAMOTIDINE 20 MG INJ IV SCH ×2 (09:30→21:29)
[2019-02-03] MEDS: MULTIVITAMINS/MINERALS TAB PO SCH (09:30)
[2019-02-03] MEDS: AMLODIPINE 2.5 MG TAB PO SCH (09:30)
--- NOTE | 2019-02-03 11:10 | PN ---
Date/Time of Note Date/Time of Note DATE: 02/03/19 TIME: 11:03 Assessment/Plan VTE Prophylaxis Risk score (from Nsg)>0 risk: 5 SCD applied (from Nsg): Yes Pharmacological prophylaxis: NA/contraindicated Pharm contraindication: low risk/ambulating Lines/Catheters IV Catheter Type (from Nrsg): Mid Line Assessment/Plan Hospital Course SUBJECTIVE: pt continues to have abd pain. she is receiving iv opiates. OBJECTIVE: Vital signs-see below PHYSICAL EXAM: Constitutional: Adequately built,not in acute distress. HEENT: Head atraumatic and normocephalic. Eyes: Extraocular muscles intact. Anicteric sclerae. Pupils equal bilaterally, reactive to light. NECK: Supple without lymph node. CHEST: Clear and good breath sounds equally. No wheezing. No rhonchi. HEART: S1, S2. Regular rate and rhythm. ABDOMEN: Tender to all 4 quadrants. Soft with no rebound tenderness. Bowel sounds were present. EXTREMITIES: No cyanosis, clubbing or edema. NEUROLOGIC: Alert and oriented x3. No focal deficit. No sensory deficit. PSYCHOSOCIAL: No signs of depression. INTEGUMENTARY: No open wounds. ASSESSMENT AND PLAN:68 yo F w/ reported history of Crohn's disease not on any medications, brought lead last colonoscopy in August 2018, here with rectal bleeding and generalized lower quadrant abdominal pain, found to have CT evidence of colitis. Colitis -s/p colonoscopy=> shows inflammatory colitis/Crohn's disease. Bx confirms ischemic colitis -CTA abdominal angiography with no evidence of mesenteric artery occlusion -Being followed by surgery team->recommended maximal med mgmt->Reviewed by ID specialist->Abx has been broadened to cover possible bacterial infn 2/2 ischemia->Pt still w/pain->surgical approach per discretion of surgeon if pain persists. -on prednisone 10mg qid recommend by GI. -Diet per sx Leukocytosis, likely secondary to above -resolved -Note patient is also receiving steroids which is also part of leukocytosis. -abx per id History of gastritis -Continue PPI Hx of hepatitis C -Reportedly treated with Harvoni in the past Hypertension -Stable. Continue amlodipine. Anxiety disorders -PRN Ativan DVT prophylaxis: SCDs PUD prophylaxis: Protonix Disposition: overall pt continues to have pain. Follow-up surgery recommendations for further guidance. Patient was seen in collaboration with Dr. Daniels Result Diagram: 02/03/19 0516 02/03/19 0516 Results 24hrs Laboratory Tests Test 02/03/19 05:16 White Blood Count 7.6 # Red Blood Count 4.65 Hemoglobin 14.1 Hematocrit 42.2 Mean Corpuscular Volume 90.8 Mean Corpuscular Hemoglobin 30.3 Mean Corpuscular Hemoglobin Concent 33.4 Red Cell Distribution Width 12.1 Platelet Count 201 Mean Platelet Volume 11.0 H Immature Granulocytes % 2.100 H Neutrophils % Segmented Neutrophils % (Manual) 41 Band Neutrophils % (Manual) 14 H Lymphocytes % Lymphocytes % (Manual) 38 Reactive Lymphocytes % (Manual) 3 H Monocytes % Monocytes % (Manual) 2 Eosinophils % Basophils % Metamyelocytes % (manual) 1 H Myelocytes % (Manual) 1 H Nucleated Red Blood Cells % 0.0 Immature Granulocytes # 0.160 H Neutrophils # Neutrophils # (Manual) 3.2 Band Neutrophils # 1.0 H Lymphocytes (Manual) 2.8 Lymphocytes # Reactive Lymphocytes # 0.2 H Monocytes # Monocytes # (Manual) 0.1 L Eosinophils # Basophils # Metamyelocytes # 0.0 Myelocytes # 0.0 Nucleated Red Blood Cells # Platelet Estimate NORMAL Giant Platelets 1 H Sodium Level 137 Potassium Level 4.5 Chloride Level 100 Carbon Dioxide Level 28 Anion Gap 9 Blood Urea Nitrogen 18 Creatinine 0.69 Est Glomerular Filtrat Rate mL/min > 60 Glucose Level 150 Calcium Level 9.1 Procalcitonin 0.07 Exam/Review of Systems Exam Vitals Vital Signs Date Temp Pulse Resp B/P (MAP) Pulse Ox O2 O2 Flow FiO2 Time Delivery Rate 02/03/19 98.3 62 16 118/63 96 Nasal 2.0 08:24 (81) Cannula Intake and Output 02/02/19 02/02/19 02/03/19 1515:00 23:00 07:00 IntakeIntake Total 1020 ml 340 ml 100 ml OutputOutput Total 250 ml BalanceBalance 770 ml 340 ml 100 ml Results Results 24hrs Laboratory Tests Test 02/03/19 05:16 White Blood Count 7.6 # Red Blood Count 4.65 Hemoglobin 14.1 Hematocrit 42.2 Mean Corpuscular Volume 90.8 Mean Corpuscular Hemoglobin 30.3 Mean Corpuscular Hemoglobin Concent 33.4 Red Cell Distribution Width 12.1 Platelet Count 201 Mean Platelet Volume 11.0 H Immature Granulocytes % 2.100 H Neutrophils % Segmented Neutrophils % (Manual) 41 Band Neutrophils % (Manual) 14 H Lymphocytes % Lymphocytes % (Manual) 38 Reactive Lymphocytes % (Manual) 3 H Monocytes % Monocytes % (Manual) 2 Eosinophils % Basophils % Metamyelocytes % (manual) 1 H Myelocytes % (Manual) 1 H Nucleated Red Blood Cells % 0.0 Immature Granulocytes # 0.160 H Neutrophils # Neutrophils # (Manual) 3.2 Band Neutrophils # 1.0 H Lymphocytes (Manual) 2.8 Lymphocytes # Reactive Lymphocytes # 0.2 H Monocytes # Monocytes # (Manual) 0.1 L Eosinophils # Basophils # Metamyelocytes # 0.0 Myelocytes # 0.0 Nucleated Red Blood Cells # Platelet Estimate NORMAL Giant Platelets 1 H Sodium Level 137 Potassium Level 4.5 Chloride Level 100 Carbon Dioxide Level 28 Anion Gap 9 Blood Urea Nitrogen 18 Creatinine 0.69 Est Glomerular Filtrat Rate mL/min > 60 Glucose Level 150 Calcium Level 9.1 Procalcitonin 0.07 Medications Medication Current Medications IV Flush (NS 3 ml) 3 ml PER PROTOCOL IV ; Start 01/27/19 at 03:30 Acetaminophen (Tylenol Tab) 650 mg Q6H PRN PO .PAIN 1-3 OR TEMP Last administered on 01/30/19at 12:21; Admin Dose 650 MG; Start 01/27/19 at 03:30 Acetaminophen/ Hydrocodone Bitart ([place] (5/325)) 1 tab Q6H PRN PO .MOD PAIN 4- 6 Last administered on 01/31/19at 23:52; Admin Dose 1 TAB; Start 01/27/19 at 03:30 Hydromorphone HCl (Dilaudid) 1 mg Q3H PRN IV SEVERE PAIN LEVEL 7-10 Last administered on 02/03/19at 09:30; Admin Dose 1 MG; Start 01/27/19 at 05:00 Hyoscyamine (Levsin (Sl)) 0.125 mg Q4H PRN SL ABDOMINAL CRAMPS Last administered on 02/01/19at 14:31; Admin Dose 0.125 MG; Start 01/27/19 at 22:30 Lorazepam (Ativan) 0.5 mg Q8H PRN IV anxiety; Start 01/28/19 at 14:30 Famotidine (Pepcid Iv) 20 mg BID IV Last administered on 02/03/19at 09:30; Admin Dose 20 MG; Start 01/29/19 at 09:00 Prednisone (Prednisone) 10 mg QID PO Last administered on 02/03/19 09:30; Admin Dose 10 MG; Start 01/29/19 at 13:00 Amlodipine Besylate (Norvasc) 5 mg DAILY PO Last administered on 02/03/19 09:30; Admin Dose 5 MG; Start 01/30/19 at 09:00 Clonidine (Catapres) 0.1 mg Q6H PRN PO ELEVATED BLOOD PRESSURE Last administered on 02/03/19 04:02; Admin Dose 0.1 MG; Start 01/30/19 at 15:00 Hydralazine HCl (Apresoline) 10 mg Q4H PRN IV ELEVATED BLOOD PRESSURE Last administered on 01/31/19 23:52; Admin Dose 10 MG; Start 01/31/19 at 21:30 Atorvastatin Calcium (Lipitor) 20 mg HS PO Last administered on 02/02/19 21:27; Admin Dose 20 MG; Start 02/01/19 at 21:00 Pentoxifylline (Trental) 400 mg TID PO Last administered on 02/03/19 09:29; Admin Dose 400 MG; Start 02/01/19 at 13:00 Lactobacillus Acidophilus (Florajen3 Capsule) 1 each BID PO Last administered on 02/03/19 09:29; Admin Dose 1 EACH; Start 02/02/19 at 21:00 Piperacillin Sod/ Tazobactam Sod 100 ml @ 200 mls/hr Q6 IVPB Last administered on 02/03/19 05:27; Admin Dose 200 MLS/HR; Start 02/02/19 at 13:30 Multivitamins/ Minerals (Theragran-M) 1 tab DAILY PO Last administered on 02/03/19 09:30; Admin Dose 1 TAB; Start 02/03/19 at 09:00 Zinc Sulfate (Zinc Sulfate) 220 mg DAILY PO Last administered on 02/03/19 09:29; Admin Dose 220 MG; Start 02/03/19 at 09:00 KATRIN CORRAL NP Feb 03, 2019 11:10
[2019-02-03 15:17] VITALS: BP 136/83; PULSE 85; RESP 18
--- NOTE | 2019-02-03 17:06 | PN ---
Date/Time of Note Date/Time of Note DATE: 02/03/19 TIME: 16:59 Assessment/Plan Lines/Catheters IV Catheter Type (from [facility]): Mid Line Assessment/Plan Chief Complaint/Hosp Course 1. Splenic flexure colitis status post colonoscopy with pathology showing ischemic colitis. Etiology unknown (low flow state, infectious, inflammatory, other). Leukocytosis with bandemia. Stool + coliforms. intermittent pain; wbc and bandemia improved -clear liquids -Judicious fluid management -IV antibiotics > ID eval noted -cont close monitoring -Stop smoking -If not improving or worsening may need surgical resection 2. Diarrhea, blood per rectum, anemia secondary to above 3. Leukocytosis secondary to above 4. GERD -Nutrition and medication optimization -Stop smoking -Lifestyle optimization Thank you. Patient seen and examined in collaboration with Dr. Reddy Sierra. Subjective 24 Hr Interval Summary Abdominal pain with food. No fevers, chills, sob, congested cough, cp, palpitations, rivera, dizziness, n/v/d/dysuria. Exam/Review of Systems Vital Signs Vitals Vital Signs Date Temp Pulse Resp B/P (MAP) Pulse Ox O2 O2 Flow FiO2 Time Delivery Rate 02/03/19 97.7 85 18 136/83 97 15:17 (100) 02/03/19 Nasal 2.0 08:24 Cannula Intake and Output 02/02/19 02/02/19 02/03/19 1515:00 23:00 07:00 IntakeIntake Total 1020 ml 340 ml 100 ml OutputOutput Total 250 ml BalanceBalance 770 ml 340 ml 100 ml Exam Free Text/Dictation Constitutional: alert, oriented; No distress Psych: anxiety; No confusion Head: normocephalic, atraumatic Eyes: nl conjunctiva, EOMI, PERRL; No icteric ENMT: nl external ears & nose, mucosa pink and moist Neck: supple, non-tender; No jvd Respiratory: normal air movement; No congested cough, No labored breathing, No wheezing Cardiovascular: regular rate and rhythm; No edema Gastrointestinal: soft, tender (Left abdomen); min distended No rebound or guarding Musculoskeletal: nl extremities to inspection; No joint tenderness Extremities: normal pulses; No calf tenderness, No edema Neurological: nl mental status, nl speech, nl strength Skin: nl turgor; No rash or lesions, No diaphoresis, No laceration Lymph: nl lymph nodes Results Result Diagram: 02/03/19 0516 02/03/19 0516 RICHMOND PERERA NP Feb 03, 2019 17:06
[2019-02-03 20:33] VITALS: BP 113/54; PULSE 79; RESP 18
[2019-02-03] MEDS: ATORVASTATIN 40 MG TAB PO SCH (21:29)
[2019-02-04] MEDS: HYDROmorphONE 1 MG/ML SYG IV PRN ×8 (00:45→22:48)
[2019-02-04 02:37] VITALS: BP 144/76; PULSE 65; RESP 18
[2019-02-04] MEDS: PIPER-TAZO 3.375 GM IV (PMX) 100 ML IVPB SCH ×4 (06:06→23:41)
--- NOTE | 2019-02-04 07:29 | CONS ---
Assessment/Plan Assessment/Plan Hospital Course (Demo Recall) 1) ischemic colitis pt had bx with colonoscopy that confirms this angiography of mesenteric arteries did no show obstruction she has L sided colonic wall thickening and either her continued pain is due to ongoing ischemia or a secondary bacterial colitis that is not responding to cipro/flagyl d/c cipro/flagyl and start zosyn if infection is the issue then in the next few days we should see some improvement start probiotics check procalcitonin in a.m. pt was recently started on trental 02/03 - continue with zosyn for possible secondary bacterial infection due to ischemia if pain is not improving in next few days may need surgery for ischemic area 02/04 - pain is improved this a.m. but back on clear liquids wbc was WNL yesterday continue with zosyn and probiotics 2) hx of hep C that has been successfully treated pt states she has liver fibrosis and fatty liver but no cirrhosis INR is minimally elevated 3) Hx of SBE in the 's 4) IBS Consultation Date/Type/Reason Admit Date/Time Jan 27, 2019 at 03:17 Initial Consult Date 02/02/19 Type of Consult ID Requesting Provider: DIANNE MORALES MD Date/Time of Note DATE: 02/04/19 TIME: 07:26 24 HR Interval Summary Free Text/Dictation pt states abd pain is better this a.m. she has loose stools now unless she gets dilaudid she was getting pain with food, back on clear liquids no V, breathing is ok Exam/Review of Systems Exam Vitals Vital Signs Date Temp Pulse Resp B/P (MAP) Pulse Ox O2 O2 Flow FiO2 Time Delivery Rate 02/04/19 2.0 05:36 02/04/19 98.6 65 18 144/76 96 02:37 (98) 02/03/19 Nasal 21:00 Cannula Intake and Output 02/03/19 02/03/19 02/04/19 1515:00 23:00 07:00 IntakeIntake Total 220 ml 440 ml 550 ml OutputOutput Total 1 ml 250 ml BalanceBalance 219 ml 190 ml 550 ml Constitutional: alert, oriented Respiratory: clear to auscultation Cardiovascular: regular rate and rhythm Gastrointestinal: soft, non-tender Results Result Diagram: 02/03/1951502/03/19515 Medications Medication Current Medications IV Flush (NS 3 ml) 3 ml PER PROTOCOL IV ; Start 01/27/19 at 03:30 Acetaminophen (Tylenol Tab) 650 mg Q6H PRN PO .PAIN 1-3 OR TEMP Last administe red on 01/30/19 12:21; Admin Dose 650 MG; Start 01/27/19 at 03:30 Acetaminophen/ Hydrocodone Bitart ([place] (5/325)) 1 tab Q6H PRN PO .MOD PAIN 4- 6 Last administered on 01/31/19 23:52; Admin Dose 1 TAB; Start 01/27/19 at 03:30 Hydromorphone HCl (Dilaudid) 1 mg Q3H PRN IV SEVERE PAIN LEVEL 7-10 Last administered on 02/04/19 06:45; Admin Dose 1 MG; Start 01/27/19 at 05:00 Hyoscyamine (Levsin (Sl)) 0.125 mg Q4H PRN SL ABDOMINAL CRAMPS Last administered on 02/01/19 14:31; Admin Dose 0.125 MG; Start 01/27/19 at 22:30 Lorazepam (Ativan) 0.5 mg Q8H PRN IV anxiety; Start 01/28/19 at 14:30 Famotidine (Pepcid Iv) 20 mg BID IV Last administered on 02/03/19 21:29; Admin Dose 20 MG; Start 01/29/19 at 09:00 Prednisone (Prednisone) 10 mg QID PO Last administered on 02/03/19 22:47; Admin Dose 10 MG; Start 01/29/19 at 13:00 Amlodipine Besylate (Norvasc) 5 mg DAILY PO Last administered on 02/03/19 09:30; Admin Dose 5 MG; Start 01/30/19 at 09:00 Clonidine (Catapres) 0.1 mg Q6H PRN PO ELEVATED BLOOD PRESSURE Last administered on 02/03/19 04:02; Admin Dose 0.1 MG; Start 01/30/19 at 15:00 Hydralazine HCl (Apresoline) 10 mg Q4H PRN IV ELEVATED BLOOD PRESSURE Last administered on 01/31/19 23:52; Admin Dose 10 MG; Start 01/31/19 at 21:30 Atorvastatin Calcium (Lipitor) 20 mg HS PO Last administered on 02/03/19 21:29; Admin Dose 20 MG; Start 02/01/19 at 21:00 Pentoxifylline (Trental) 400 mg TID PO Last administered on 02/03/19 21:31; Admin Dose 400 MG; Start 02/01/19 at 13:00 Lactobacillus Acidophilus (Florajen3 Capsule) 1 each BID PO Last administered on 02/03/19 21:29; Admin Dose 1 EACH; Start 02/02/19 at 21:00 Piperacillin Sod/ Tazobactam Sod 100 ml @ 200 mls/hr Q6 IVPB Last administered on 02/04/19 06:06; Admin Dose 200 MLS/HR; Start 02/02/19 at 13:30 Multivitamins/ Minerals (Theragran-M) 1 tab DAILY PO Last administered on 02/03/19 09:30; Admin Dose 1 TAB; Start 02/03/19 at 09:00 Zinc Sulfate (Zinc Sulfate) 220 mg DAILY PO Last administered on 02/03/19 09:29; Admin Dose 220 MG; Start 02/03/19 at 09:00 BRIANA CASTILLO MD Feb 04, 2019 07:29
[2019-02-04 07:30] VITALS: BP 127/76; PULSE 72; RESP 16
[2019-02-04] MEDS: AMLODIPINE 2.5 MG TAB PO SCH (08:51)
[2019-02-04] MEDS: ZINC SULFATE 220 MG CAP PO SCH (08:51)
[2019-02-04] MEDS: L ACIDOPHIL/B LACTIS/B LONGUM CAPSULE PO SCH ×2 (08:51→20:05)
[2019-02-04] MEDS: FAMOTIDINE 20 MG INJ IV SCH ×2 (08:51→20:05)
[2019-02-04] MEDS: predniSONE 10 MG TAB PO SCH ×4 (08:51→21:42)
[2019-02-04] MEDS: PENTOXIFYLLINE (SR) 400 MG TAB PO SCH ×3 (08:51→20:07)
[2019-02-04] MEDS: MULTIVITAMINS/MINERALS TAB PO SCH (08:51)
--- NOTE | 2019-02-04 12:02 | PN ---
Date/Time of Note Date/Time of Note DATE: 02/04/19 TIME: 11:59 Assessment/Plan VTE Prophylaxis Risk score (from Nsg)>0 risk: 6 SCD applied (from Ns): No SCD contraindicated: patient refusal Pharmacological prophylaxis: NA/contraindicated Pharm contraindication: low risk/ambulating Lines/Catheters IV Catheter Type (from Nrsg): Mid Line Assessment/Plan Hospital Course SUBJECTIVE: Today pain improved. OBJECTIVE: Vital signs-see below PHYSICAL EXAM: Constitutional: Adequately built,not in acute distress. HEENT: Head atraumatic and normocephalic. Eyes: Extraocular muscles intact. Anicteric sclerae. Pupils equal bilaterally, reactive to light. NECK: Supple without lymph node. CHEST: Clear and good breath sounds equally. No wheezing. No rhonchi. HEART: S1, S2. Regular rate and rhythm. ABDOMEN: Tender to all 4 quadrants. Soft with no rebound tenderness. Bowel sounds were present. EXTREMITIES: No cyanosis, clubbing or edema. NEUROLOGIC: Alert and oriented x3. No focal deficit. No sensory deficit. PSYCHOSOCIAL: No signs of depression. INTEGUMENTARY: No open wounds. ASSESSMENT AND PLAN:68 yo F w/ reported history of Crohn's disease not on any medications, brought lead last colonoscopy in August 2018, here with rectal bleeding and generalized lower quadrant abdominal pain, found to have CT evidence of colitis. Colitis -s/p colonoscopy w/ Bx confirms ischemic colitis -CTA abdominal angiography with no evidence of mesenteric artery occlusion -Being followed by surgery team->recommended maximal med mgmt->Reviewed by ID specialist->Abx has been broadened to cover possible bacterial infn 2/2 ischemia->surgical approach per discretion of surgeon if pain persists. -on prednisone 10mg qid recommend by GI. -Diet per sx Leukocytosis, likely secondary to above -resolved -Note patient is also receiving steroids which is also part of leukocytosis. -abx per id History of gastritis -Continue PPI Hx of hepatitis C -Reportedly treated with Harvoni in the past Hypertension -Stable. Continue amlodipine. Anxiety disorders -PRN Ativan DVT prophylaxis: SCDs PUD prophylaxis: Protonix Disposition: Today patient with improved abdominal pain. She is on a soft diet. Follow-up surgery recommendations for further guidance. Patient was seen in collaboration with Dr. Daniels Result Diagram: 6/18/19 0516 6/18/19 0516 Exam/Review of Systems Exam Vitals Vital Signs Date Temp Pulse Resp B/P (MAP) Pulse Ox O2 O2 Flow FiO2 Time Delivery Rate 02/04/19 98.3 72 16 127/76 98 Nasal 07:30 (93) Cannula 02/04/19 2.0 05:36 Intake and Output 02/03/19 02/03/19 02/04/19 1515:00 23:00 07:00 IntakeIntake Total 220 ml 440 ml 550 ml OutputOutput Total 1 ml 250 ml BalanceBalance 219 ml 190 ml 550 ml Medications Medication Current Medications IV Flush (NS 3 ml) 3 ml PER PROTOCOL IV ; Start 01/27/19 at 03:30 Acetaminophen (Tylenol Tab) 650 mg Q6H PRN PO .PAIN 1-3 OR TEMP Last administered on 01/30/19 12:21; Admin Dose 650 MG; Start 01/27/19 at 03:30 Acetaminophen/ Hydrocodone Bitart ([place] (5/325)) 1 tab Q6H PRN PO .MOD PAIN 4- 6 Last administered on 01/31/19 23:52; Admin Dose 1 TAB; Start 01/27/19 at 03:30 Hydromorphone HCl (Dilaudid) 1 mg Q3H PRN IV SEVERE PAIN LEVEL 7-10 Last adm inistered on 02/04/19 09:51; Admin Dose 1 MG; Start 01/27/19 at 05:00 Hyoscyamine (Levsin (Sl)) 0.125 mg Q4H PRN SL ABDOMINAL CRAMPS Last administered on 02/01/19 14:31; Admin Dose 0.125 MG; Start 01/27/19 at 22:30 Lorazepam (Ativan) 0.5 mg Q8H PRN IV anxiety; Start 01/28/19 at 14:30 Famotidine (Pepcid Iv) 20 mg BID IV Last administered on 02/04/19 08:51; Admin Dose 20 MG; Start 01/29/19 at 09:00 Prednisone (Prednisone) 10 mg QID PO Last administered on 02/04/19 08:51; Admin Dose 10 MG; Start 01/29/19 at 13:00 Amlodipine Besylate (Norvasc) 5 mg DAILY PO Last administered on 02/04/19 08:51; Admin Dose 5 MG; Start 01/30/19 at 09:00 Clonidine (Catapres) 0.1 mg Q6H PRN PO ELEVATED BLOOD PRESSURE Last administered on 02/03/19 04:02; Admin Dose 0.1 MG; Start 01/30/19 at 15:00 Hydralazine HCl (Apresoline) 10 mg Q4H PRN IV ELEVATED BLOOD PRESSURE Last administered on 01/31/19 23:52; Admin Dose 10 MG; Start 01/31/19 at 21:30 Atorvastatin Calcium (Lipitor) 20 mg HS PO Last administered on 02/03/19 21:29; Admin Dose 20 MG; Start 02/01/19 at 21:00 Pentoxifylline (Trental) 400 mg TID PO Last administered on 02/04/19 08:51; Admin Dose 400 MG; Start 02/01/19 at 13:00 Lactobacillus Acidophilus (Florajen3 Capsule) 1 each BID PO Last administered on 02/04/19 08:51; Admin Dose 1 EACH; Start 02/02/19 at 21:00 Piperacillin Sod/ Tazobactam Sod 100 ml @ 200 mls/hr Q6 IVPB Last administered on 02/04/19 11:44; Admin Dose 200 MLS/HR; Start 02/02/19 at 13:30 Multivitamins/ Minerals (Theragran-M) 1 tab DAILY PO Last administered on 02/04/19 08:51; Admin Dose 1 TAB; Start 02/03/19 at 09:00 Zinc Sulfate (Zinc Sulfate) 220 mg DAILY PO Last administered on 02/04/19 08:51; Admin Dose 220 MG; Start 02/03/19 at 09:00 KATRIN CORRAL NP Feb 04, 2019 12:02
--- NOTE | 2019-02-04 12:29 | PN ---
Date/Time of Note Date/Time of Note DATE: 02/04/19 TIME: 12:25 Assessment/Plan Lines/Catheters IV [facility] Type (from [facility]): Mid Line Assessment/Plan Chief Complaint/Hosp Course 1. Splenic flexure colitis status post colonoscopy with pathology showing ischemic colitis. Etiology unknown (low flow state, infectious, inflammatory, other). Leukocytosis with bandemia. Stool + coliforms; wbc and bandemia improved; abdominal pain much improved; clinically improving -We will advance diet -Judicious fluid management -IV antibiotics > per ID -cont close monitoring -Stop smoking -If not improving or worsening may need surgical resection 2. Diarrhea, blood per rectum, anemia secondary to above 3. Leukocytosis secondary to above 4. GERD -Nutrition and medication optimization -Stop smoking -Lifestyle optimization Thank you. Patient seen and examined in collaboration with Dr. Reddy Sierra. Subjective 24 Hr Interval Summary Abdominal pain much improved per patient. Requesting to advance in diet. No fevers, chills, sob, congested cough, cp, palpitations, rivera, dizziness, nausea, vomiting, diarrhea, dysuria. Exam/Review of Systems Vital Signs Vitals Vital Signs Date Temp Pulse Resp B/P (MAP) Pulse Ox O2 O2 Flow FiO2 Time Delivery Rate 02/04/19 2.0 12:03 02/04/19 98.3 72 16 127/76 98 Nasal 07:30 (93) Cannula Intake and Output 02/03/19 02/03/19 02/04/19 1515:00 23:00 07:00 IntakeIntake Total 220 ml 440 ml 550 ml OutputOutput Total 1 ml 250 ml BalanceBalance 219 ml 190 ml 550 ml Exam Free Text/Dictation Constitutional: alert, oriented; No distress Psych: anxiety; No confusion Head: normocephalic, atraumatic Eyes: nl conjunctiva, EOMI, PERRL; No icteric ENMT: nl external ears & nose, mucosa pink and moist Neck: supple, non-tender; No jvd Respiratory: normal air movement; No congested cough, No labored breathing, No wheezing Cardiovascular: regular rate and rhythm; No edema Gastrointestinal: soft, tender (Left abdomen); min distended No rebound or guarding Musculoskeletal: nl extremities to inspection; No joint tenderness Extremities: normal pulses; No calf tenderness, No edema Neurological: nl mental status, nl speech, nl strength Skin: nl turgor; No rash or lesions, No diaphoresis, No laceration Lymph: nl lymph nodes Results Result Diagram: 02/03/19 0516 02/03/19 0516 RICHMOND PERERA NP Feb 04, 2019 12:29
[2019-02-04 14:06] VITALS: BP 114/55; PULSE 84; RESP 18
[2019-02-04] MEDS: ATORVASTATIN 40 MG TAB PO SCH (20:05)
[2019-02-04 20:23] VITALS: BP 133/58; PULSE 66; RESP 20
[2019-02-05] MEDS: HYDROmorphONE 1 MG/ML SYG IV PRN ×7 (02:12→21:50)
[2019-02-05 02:33] VITALS: BP 121/87; PULSE 67; RESP 18
[2019-02-05] MEDS: PIPER-TAZO 3.375 GM IV (PMX) 100 ML IVPB SCH ×3 (05:25→17:51)
[2019-02-05 07:21] VITALS: BP 153/80; PULSE 67; RESP 18
[2019-02-05] MEDS: L ACIDOPHIL/B LACTIS/B LONGUM CAPSULE PO SCH ×2 (09:28→20:54)
[2019-02-05] MEDS: PENTOXIFYLLINE (SR) 400 MG TAB PO SCH ×3 (09:28→20:54)
[2019-02-05] MEDS: predniSONE 10 MG TAB PO SCH ×4 (09:29→20:54)
[2019-02-05] MEDS: FAMOTIDINE 20 MG INJ IV SCH ×2 (09:29→20:54)
[2019-02-05] MEDS: ZINC SULFATE 220 MG CAP PO SCH (09:29)
[2019-02-05] MEDS: AMLODIPINE 2.5 MG TAB PO SCH (09:29)
[2019-02-05] MEDS: MULTIVITAMINS/MINERALS TAB PO SCH (09:29)
--- NOTE | 2019-02-05 13:09 | PN ---
Date/Time of Note Date/Time of Note DATE: 02/05/19 TIME: 13:08 Assessment/Plan Lines/Catheters IV Catheter Type (from Nrs): Mid Line Assessment/Plan Chief Complaint/Hosp Course 1. Splenic flexure colitis status post colonoscopy with pathology showing ischemic colitis. Etiology unknown (low flow state, infectious, inflammatory, other). Leukocytosis with bandemia. Stool + coliforms; wbc and bandemia improved; abdominal pain much improved; clinically improving -continue soft diet -Judicious fluid management -IV antibiotics > per ID -cont close monitoring -Stop smoking -dc ok from surgical standpoint 2. Diarrhea, blood per rectum, anemia secondary to above 3. Leukocytosis secondary to above 4. GERD -Nutrition and medication optimization -Stop smoking -Lifestyle optimization 5. Dysuria with bacteruria -per medical team Thank you. Patient seen and examined in collaboration with Dr. Reddy Sierra. Subjective 24 Hr Interval Summary Abdominal pain much improved. Tolerating diet. Now with dysuria. No fevers, chills, sob, congested cough, cp, palpitations, rivera, dizziness, n/v/d. Exam/Review of Systems Vital Signs Vitals Vital Signs Date Temp Pulse Resp B/P (MAP) Pulse Ox O2 O2 Flow FiO2 Time Delivery Rate 02/05/19 98.3 79 16 119/69 96 Nasal 14:12 (86) Cannula 02/05/19 2.0 02:41 Intake and Output 02/04/19 02/04/19 02/05/19 1515:00 23:00 07:00 IntakeIntake Total 500 ml 400 ml 500 ml BalanceBalance 500 ml 400 ml 500 ml Exam Free Text/Dictation Constitutional: alert, oriented; No distress Psych: anxiety; No confusion Head: normocephalic, atraumatic Eyes: nl conjunctiva, EOMI, PERRL; No icteric ENMT: nl external ears & nose, mucosa pink and moist Neck: supple, non-tender; No jvd Respiratory: normal air movement; No congested cough, No labored breathing, No wheezing Cardiovascular: regular rate and rhythm; No edema Gastrointestinal: soft, nontender; min distended No rebound or guarding Musculoskeletal: nl extremities to inspection; No joint tenderness Extremities: normal pulses; No calf tenderness, No edema Neurological: nl mental status, nl speech, nl strength Skin: nl turgor; No rash or lesions, No diaphoresis, No laceration Lymph: nl lymph nodes Results Result Diagram: 02/04/19 1304 02/03/19 0516 RICHMOND PERERA NP Feb 05, 2019 13:09
[2019-02-05 14:12] VITALS: BP 119/69; PULSE 79; RESP 16
--- NOTE | 2019-02-05 14:23 | PN ---
Date/Time of Note Date/Time of Note DATE: 02/05/19 TIME: 14:21 Assessment/Plan VTE Prophylaxis Risk score (from Ns)>0 risk: 6 SCD applied (from Ns): No SCD contraindicated: other Pharmacological prophylaxis: NA/contraindicated Pharm contraindication: low risk/ambulating Lines/Catheters IV Catheter Type (from Nrsg): Mid Line Assessment/Plan Hospital Course SUBJECTIVE: Today pain improved. OBJECTIVE: Vital signs-see below PHYSICAL EXAM: Constitutional: Adequately built,not in acute distress. HEENT: Head atraumatic and normocephalic. Eyes: Extraocular muscles intact. Anicteric sclerae. Pupils equal bilaterally, reactive to light. NECK: Supple without lymph node. CHEST: Clear and good breath sounds equally. No wheezing. No rhonchi. HEART: S1, S2. Regular rate and rhythm. ABDOMEN: Tender to all 4 quadrants. Soft with no rebound tenderness. Bowel sounds were present. EXTREMITIES: No cyanosis, clubbing or edema. NEUROLOGIC: Alert and oriented x3. No focal deficit. No sensory deficit. PSYCHOSOCIAL: No signs of depression. INTEGUMENTARY: No open wounds. ASSESSMENT AND PLAN:68 yo F w/ reported history of Crohn's disease not on any medications, brought lead last colonoscopy in August 2018, here with rectal bleeding and generalized lower quadrant abdominal pain, found to have CT evidence of colitis. Colitis -s/p colonoscopy w/ Bx confirms ischemic colitis -CTA abdominal angiography with no evidence of mesenteric artery occlusion -Being followed by surgery team-> no inpatient surgical intervention recommended as patient's pain improved with medical management. -on prednisone 10mg qid recommend by GI. -Continue Zosyn and defer infectious disease team for outpatient regimen. Leukocytosis, likely secondary to above -With not much fluctuations. -Note patient is also receiving steroids which is also part of leukocytosis. -abx per id History of gastritis -Continue PPI Hx of hepatitis C -Reportedly treated with Harvoni in the past Hypertension -Stable. Continue amlodipine. Anxiety disorders -PRN Ativan DVT prophylaxis: SCDs PUD prophylaxis: Protonix Disposition: Overall, patient with significant improvement in abdominal pain. She is having regular bowel movements. She is tolerating diet. She is very eager to be discharged. Surgical hood patient is cleared for outpatient follow- up. Will check with infectious disease team regarding outpatient antimicrobial regimen. Likely DC in a.m. once cleared from consultants. Patient was seen in collaboration with Dr. Daniels Result Diagram: 02/04/19 1304 02/03/19 0516 Results 24hrs Laboratory Tests Test 02/05/19 06:20 Urine Color YELLOW Urine Clarity SLIGHTLY CLOUDY A Urine pH 6.0 Urine Specific [place] 1.018 Urine Ketones NEGATIVE Urine Nitrite NEGATIVE Urine Bilirubin NEGATIVE Urine Urobilinogen NEGATIVE Urine Leukocyte Esterase 1+ H Urine Microscopic RBC 1 Urine Microscopic WBC 1 Urine Squamous Epithelial Cells FEW Urine Bacteria FEW A Urine Yeast (Budding) FEW A Urine Hemoglobin 2+ H Urine Glucose NEGATIVE Urine Total Protein NEGATIVE Exam/Review of Systems Exam Vitals Vital Signs Date Temp Pulse Resp B/P (MAP) Pulse Ox O2 O2 Flow FiO2 Time Delivery Rate 02/05/19 98.3 79 16 119/69 96 Nasal 14:12 (86) Cannula 02/05/19 2.0 02:41 Intake and Output 02/04/19 02/04/19 02/05/19 1515:00 23:00 07:00 IntakeIntake Total 500 ml 400 ml 500 ml BalanceBalance 500 ml 400 ml 500 ml Results Results 24hrs Laboratory Tests Test 02/05/19 06:20 Urine Color YELLOW Urine Clarity SLIGHTLY CLOUDY A Urine pH 6.0 Urine Specific [place] 1.018 Urine Ketones NEGATIVE Urine Nitrite NEGATIVE Urine Bilirubin NEGATIVE Urine Urobilinogen NEGATIVE Urine Leukocyte Esterase 1+ H Urine Microscopic RBC 1 Urine Microscopic WBC 1 Urine Squamous Epithelial Cells FEW Urine Bacteria FEW A Urine Yeast (Budding) FEW A Urine Hemoglobin 2+ H Urine Glucose NEGATIVE Urine Total Protein NEGATIVE Medications Medication Current Medications IV Flush (NS 3 ml) 3 ml PER PROTOCOL IV ; Start 01/27/19 at 03:30 Acetaminophen (Tylenol Tab) 650 mg Q6H PRN PO .PAIN 1-3 OR TEMP Last administered on 01/30/19at 12:21; Admin Dose 650 MG; Start 01/27/19 at 03:30 Acetaminophen/ Hydrocodone Bitart ([place] (5/325)) 1 tab Q6H PRN PO .MOD PAIN 4- 6 Last administered on 01/31/19at 23:52; Admin Dose 1 TAB; Start 01/27/19 at 03:30 Hydromorphone HCl (Dilaudid) 1 mg Q3H PRN IV SEVERE PAIN LEVEL 7-10 Last administered on 02/05/19at 12:42; Admin Dose 1 MG; Start 01/27/19 at 05:00 Hyoscyamine (Levsin (Sl)) 0.125 mg Q4H PRN SL ABDOMINAL CRAMPS Last administered on 02/01/19 14:31; Admin Dose 0.125 MG; Start 01/27/19 at 22:30 Lorazepam (Ativan) 0.5 mg Q8H PRN IV anxiety; Start 01/28/19 at 14:30 Famotidine (Pepcid Iv) 20 mg BID IV Last administered on 02/05/19 09:29; Admin Dose 20 MG; Start 01/29/19 at 09:00 Prednisone (Prednisone) 10 mg QID PO Last administered on 02/05/19 12:42; Admin Dose 10 MG; Start 01/29/19 at 13:00 Amlodipine Besylate (Norvasc) 5 mg DAILY PO Last administered on 02/05/19 09:29; Admin Dose 5 MG; Start 01/30/19 at 09:00 Clonidine (Catapres) 0.1 mg Q6H PRN PO ELEVATED BLOOD PRESSURE Last administered on 02/03/19 04:02; Admin Dose 0.1 MG; Start 01/30/19 at 15:00 Hydralazine HCl (Apresoline) 10 mg Q4H PRN IV ELEVATED BLOOD PRESSURE Last administered on 01/31/19 23:52; Admin Dose 10 MG; Start 01/31/19 at 21:30 Atorvastatin Calcium (Lipitor) 20 mg HS PO Last administered on 02/04/19 20:05; Admin Dose 20 MG; Start 02/01/19 at 21:00 Pentoxifylline (Trental) 400 mg TID PO Last administered on 02/05/19 12:42; Admin Dose 400 MG; Start 02/01/19 at 13:00 Lactobacillus Acidophilus (Florajen3 Capsule) 1 each BID PO Last administered on 02/05/19 09:28; Admin Dose 1 EACH; Start 02/02/19 at 21:00 Piperacillin Sod/ Tazobactam Sod 100 ml @ 200 mls/hr Q6 IVPB Last administered on 02/05/19 12:43; Admin Dose 200 MLS/HR; Start 02/02/19 at 13:30 Multivitamins/ Minerals (Theragran-M) 1 tab DAILY PO Last administered on 02/05/19at 09:29; Admin Dose 1 TAB; Start 02/03/19 at 09:00 Zinc Sulfate (Zinc Sulfate) 220 mg DAILY PO Last administered on 02/05/19at 09:29; Admin Dose 220 MG; Start 02/03/19 at 09:00 KATRIN CORRAL NP Feb 05, 2019 14:23
[2019-02-05 20:36] VITALS: BP 111/66; PULSE 75; RESP 16
[2019-02-05] MEDS: ATORVASTATIN 40 MG TAB PO SCH (20:54)
[2019-02-06] MEDS: PIPER-TAZO 3.375 GM IV (PMX) 100 ML IVPB SCH ×2 (00:27→05:05)
[2019-02-06] MEDS: HYDROmorphONE 1 MG/ML SYG IV PRN ×6 (00:55→16:37)
[2019-02-06 02:22] VITALS: BP 114/64; PULSE 67; RESP 18
--- NOTE | 2019-02-06 06:59 | CONS ---
Assessment/Plan Assessment/Plan Hospital Course (Demo Recall) 1) ischemic colitis pt had bx with colonoscopy that confirms this angiography of mesenteric arteries did no show obstruction she has L sided colonic wall thickening and either her continued pain is due to ongoing ischemia or a secondary bacterial colitis that is not responding to cipro/flagyl d/c cipro/flagyl and start zosyn if infection is the issue then in the next few days we should see some improvement start probiotics check procalcitonin in a.m. pt was recently started on trental 02/03 - continue with zosyn for possible secondary bacterial infection due to ischemia if pain is not improving in next few days may need surgery for ischemic area 02/04 - pain is improved this a.m. but back on clear liquids wbc was WNL yesterday continue with zosyn and probiotics 02/06 - pain improved, change zosyn to augmentin/levo for 7 days 2) hx of hep C that has been successfully treated pt states she has liver fibrosis and fatty liver but no cirrhosis INR is minimally elevated 3) Hx of SBE in the 's 4) IBS Consultation Date/Type/Reason Admit Date/Time Jan 27, 2019 at 03:17 Initial Consult Date 02/02/19 Type of Consult ID Requesting Provider: DIANNE MORALES MD Date/Time of Note DATE: 02/06/19 TIME: 06:57 24 HR Interval Summary Free Text/Dictation still has some abd pain but better overall pt states she had maroon stool but nurse states it was brown no N, V, SOB Exam/Review of Systems Exam Vitals Vital Signs Date Temp Pulse Resp B/P (MAP) Pulse Ox O2 O2 Flow FiO2 Time Delivery Rate 02/06/19 2.0 03:28 02/06/19 97.3 67 18 114/64 97 02:22 (81) 02/05/19 Nasal 23:47 Cannula Intake and Output 02/05/19 02/05/19 02/06/19 1515:00 23:00 07:00 IntakeIntake Total 300 ml 350 ml 200 ml BalanceBalance 300 ml 350 ml 200 ml Constitutional: alert ENMT: mucosa pink and moist Respiratory: clear to auscultation Cardiovascular: regular rate and rhythm Gastrointestinal: soft, non-tender Results Result Diagram: 02/06/19 0610 02/03/19 0516 Results 24hrs Laboratory Tests Test 02/06/19 06:10 White Blood Count 6.1 # Red Blood Count 4.46 Hemoglobin 13.6 Hematocrit 39.6 Mean Corpuscular Volume 88.8 Mean Corpuscular Hemoglobin 30.5 Mean Corpuscular Hemoglobin Concent 34.3 Red Cell Distribution Width 11.9 Platelet Count 228 Mean Platelet Volume 10.1 Immature Granulocytes % 0.700 H Neutrophils % Lymphocytes % Monocytes % Eosinophils % Basophils % Nucleated Red Blood Cells % 0.0 Immature Granulocytes # 0.040 H Neutrophils # Lymphocytes # Monocytes # Eosinophils # Basophils # Nucleated Red Blood Cells # Medications Medication Current Medications IV Flush (NS 3 ml) 3 ml PER PROTOCOL IV ; Start 01/27/19 at 03:30 Acetaminophen (Tylenol Tab) 650 mg Q6H PRN PO .PAIN 1-3 OR TEMP Last administered on 01/30/19 12:21; Admin Dose 650 MG; Start 01/27/19 at 03:30 Acetaminophen/ Hydrocodone Bitart ([place] (5/325)) 1 tab Q6H PRN PO .MOD PAIN 4- 6 Last administered on 01/31/19 23:52; Admin Dose 1 TAB; Start 01/27/19 at 03:30 Hydromorphone HCl (Dilaudid) 1 mg Q3H PRN IV SEVERE PAIN LEVEL 7-10 Last administered on 02/06/19 06:56; Admin Dose 1 MG; Start 01/27/19 at 05:00 Hyoscyamine (Levsin (Sl)) 0.125 mg Q4H PRN SL ABDOMINAL CRAMPS Last administe red on 02/01/19at 14:31; Admin Dose 0.125 MG; Start 01/27/19 at 22:30 Lorazepam (Ativan) 0.5 mg Q8H PRN IV anxiety; Start 01/28/19 at 14:30 Famotidine (Pepcid Iv) 20 mg BID IV Last administered on 02/05/19 20:54; Admin Dose 20 MG; Start 01/29/19 at 09:00 Prednisone (Prednisone) 10 mg QID PO Last administered on 02/05/19 20:54; Admin Dose 10 MG; Start 01/29/19 at 13:00 Amlodipine Besylate (Norvasc) 5 mg DAILY PO Last administered on 02/05/19 09:29; Admin Dose 5 MG; Start 01/30/19 at 09:00 Clonidine (Catapres) 0.1 mg Q6H PRN PO ELEVATED BLOOD PRESSURE Last administered on 02/03/19 04:02; Admin Dose 0.1 MG; Start 01/30/19 at 15:00 Hydralazine HCl (Apresoline) 10 mg Q4H PRN IV ELEVATED BLOOD PRESSURE Last administered on 01/31/19 23:52; Admin Dose 10 MG; Start 01/31/19 at 21:30 Atorvastatin Calcium (Lipitor) 20 mg HS PO Last administered on 02/05/19 20:54; Admin Dose 20 MG; Start 02/01/19 at 21:00 Pentoxifylline (Trental) 400 mg TID PO Last administered on 02/05/19 20:54; Admin Dose 400 MG; Start 02/01/19 at 13:00 Lactobacillus Acidophilus (Florajen3 Capsule) 1 each BID PO Last administered on 02/05/19 20:54; Admin Dose 1 EACH; Start 02/02/19 at 21:00 Piperacillin Sod/ Tazobactam Sod 100 ml @ 200 mls/hr Q6 IVPB Last administered on 02/06/19 05:05; Admin Dose 200 MLS/HR; Start 02/02/19 at 13:30 Multivitamins/ Minerals (Theragran-M) 1 tab DAILY PO Last administered on 02/05/19 09:29; Admin Dose 1 TAB; Start 02/03/19 at 09:00 Zinc Sulfate (Zinc Sulfate) 220 mg DAILY PO Last administered on 02/05/19 09:29; Admin Dose 220 MG; Start 02/03/19 at 09:00 BRIANA CASTILLO MD Feb 06, 2019 06:59
[2019-02-06] MEDS ORDERED: LEVOFLOXACIN 500 MG TAB PO ONE (07:00)
[2019-02-06 08:00] VITALS: BP 113/71; PULSE 88; RESP 18
[2019-02-06] MEDS ORDERED: AMOXICILLIN/CLAV 875 MG TAB PO SCH (09:00)
[2019-02-06] MEDS: predniSONE 10 MG TAB PO SCH ×3 (09:23→16:37)
[2019-02-06] MEDS: MULTIVITAMINS/MINERALS TAB PO SCH (09:23)
[2019-02-06] MEDS: L ACIDOPHIL/B LACTIS/B LONGUM CAPSULE PO SCH (09:23)
[2019-02-06] MEDS: ZINC SULFATE 220 MG CAP PO SCH (09:23)
[2019-02-06] MEDS: PENTOXIFYLLINE (SR) 400 MG TAB PO SCH ×2 (09:23→13:24)
[2019-02-06] MEDS: AMLODIPINE 2.5 MG TAB PO SCH (09:23)
[2019-02-06] MEDS: FAMOTIDINE 20 MG INJ IV SCH (09:23)
--- NOTE | 2019-02-06 10:47 | PDOCDIS ---
Discharge Instructions CONDITION [id number] Patient Condition: [id number] Stable HOME CARE INSTRUCTIONS: [id number] Your diet recommendation is: [id number] soft diet FOLLOW UP/APPOINTMENTS Follow-up Plan Follow up with Dr. Sierra in 1 week Reddy Sierra MD Specialty General Surgery Comments Office Address [id number] [facility] [address] [place] [address] Office Follow-up with primary care physician in 1 week Follow-up With in 3weeks Mao David MD Specialty Gastroenterology Comments Office Address [address] [facility] [address] [place] [address] Office KATRIN CORRAL NP Feb 06, 2019 10:47
[2019-02-06] MEDS ORDERED: ZINC220C5 PO (10:50)
[2019-02-06] MEDS ORDERED: HYDR-3601 PO (10:50)
[2019-02-06] MEDS ORDERED: HYOS0.1297 SL (10:50)
[2019-02-06] MEDS ORDERED: LEVO500T48 PO (10:50)
[2019-02-06] MEDS ORDERED: AMLO2.5T78 PO (10:50)
[2019-02-06] MEDS ORDERED: MULT-843 PO (10:50)
[2019-02-06] MEDS ORDERED: L.AC460C PO (10:50)
[2019-02-06] MEDS ORDERED: AMOX1TAB10 PO (10:50)
[2019-02-06] MEDS ORDERED: ATOR40TA68 PO (10:50)
--- NOTE | 2019-02-06 10:58 | DS ---
Date/Time of Note Date/Time of Note DATE: 02/06/19 TIME: 10:54 Discharge Summary Admission/Discharge Info Admit Date/Time Jan 27, 2019 at 03:17 Discharge Date/Time Discharge Diagnosis Ischemic colitis History of gastritis Hx of hepatitis C Hypertension Anxiety disorders History of IV drug abuse Patient Condition: Stable Consults DR.Chetty DR.Mess Ta Procedures CTA abdominal angiography. IMPRESSION: 1. Mural thickening involving the distal transverse colon to the level of the mid descending colon, compatible with an indeterminate colitis. 2. The mesenteric arteries patent. No evidence of colitis on the basis of mesenteric arterial occlusive disease. 01/28/2019: Colonoscopy: Pathology report: MICROSCOPIC DIAGNOSIS: A-Ascending colon biopsy: -- Normal colon mucosa. -- There is no evidence of colitis or malignancy. B-Transverse and splenic flexure colon biopsies: -- Ischemic colitis with mucosal necrosis and ulceration. -- There is no evidence of malignancy. C-Descending colon biopsy: -- Normal colon mucosa. -- There is no evidence of colitis or malignancy. MP/RAMA/tm/mt Date of Service: 01/28/19; Date Received: 01/28/19 Dictated: 01/29/19; Transcribed: 01/29/19; Sent by Fax: 01/29/19 Hospital Course 68 yo F w/ reported history of Crohn's disease not on any medications,repeat c-scopes in the past, hx ivdu, here with rectal bleeding and generalized lower quadrant abdominal pain, found to have CT evidence of colitis. Patient was seen by wireless sales manager and she underwent colonoscopy with biopsy confirmed ischemic colitis. Patient had a CT abdominal angiography with no evidence of mesenteric artery occlusion. Patient was being followed by surgery team. She was continued on aggressive medical management with antimicrobial and also had infectious disease consultation. Patient's pain improved with medical management. She was able to tolerate diet and activities well. At this time, as per surgery, gastroenterology recommendation patient can be managed as outpatient. If her pain recurs, she would be a candidate for possible surgical intervention. Patient was given instruction to follow-up with surgeon and wireless sales manager after discharge. She verbalized understanding. Patient was sent home with 7 days of Augmentin and Levaquin per ID recommendation. Approximately 60-minute was spent on coordinating the discharge on this patient. Patient was seen in collaboration with [facility]3] Active Scripts Multivits,Ca,Minerals/Iron/FA (Thera M Plus Tablet) 1 Each Tablet, 1 TAB PO DAILY, #30 TAB Prov:CORRAL,KATRIN V. PRECISION MACHINING INSTRUCTOR 02/06/19 L Acidophil/B Lactis/B Longum (FLORAJEN3 CAPSULE) 460 Mg Capsule, 1 EACH PO BID, #60 CAP Prov:CORRAL,KATRIN V. PRECISION MACHINING INSTRUCTOR 02/06/19 Zinc Sulfate* (Zinc Sulfate*) 220 Mg Cap, 220 MG PO DAILY, #30 CAP Prov:CORRAL,KATRIN V. PRECISION MACHINING INSTRUCTOR 02/06/19 Hydrocodone Bit-Acetaminophen (Hydrocodone Bit-APAP) 5-325MG Tablet, 1 TAB PO Q6H PRN for .MOD PAIN 4-6, #15 TAB Prov:CORRAL,KATRIN V. PRECISION MACHINING INSTRUCTOR 02/06/19 Atorvastatin* (Atorvastatin*) 40 Mg Tablet, 20 MG PO HS, #30 TAB Prov:CORRAL,KATRIN V. PRECISION MACHINING INSTRUCTOR 02/06/19 Amlodipine Besylate* (Amlodipine Besylate*) 2.5 Mg Tablet, 5 MG PO DAILY, #30 TAB Prov:CORRAL,KATRIN V. PRECISION MACHINING INSTRUCTOR 02/06/19 Hyoscyamine Sulfate* (Hyoscyamine Sulfate*) 0.125 Mg Tab.subl, 0.125 MG SL Q4H PRN for ABDOMINAL CRAMPS, #30 TAB Prov:CORRAL,KATRIN V. PRECISION MACHINING INSTRUCTOR 02/06/19 Levofloxacin* (Levaquin*) 500 Mg Tablet, 500 MG PO DAILY@06 for 7 Days, #7 TAB Prov:CORRAL,KATRIN V. PRECISION MACHINING INSTRUCTOR 02/06/19 Amoxicillin/Potassium Clav (Amox-Clav 875-125 mg Tablet) 875-125 mg Tab, 875 MG PO BID for 7 Days, #14 TAB Prov:CORRAL,KATRIN V. PRECISION MACHINING INSTRUCTOR 02/06/19 Discontinued Reported Medications Nitrofurantoin Monohyd Macrocr (Macrobid) 100 Mg Capsr, 100 MG PO Q12H 01/27/19 Follow-up Plan Follow up with Dr. Sierra in 1 week Reddy Sierra MD Specialty General Surgery Comments Office Address [address] [facility] [address] [place] [id number] Office Follow-up with primary care physician in 1 week Follow-up With in 3weeks Mao David MD Specialty Gastroenterology Comments Office Address [address] [place] [address] Office Primary Care Provider Ras Shukla MD Pending Labs Laboratory Tests Test 02/06/19 06:10 White Blood Count 6.1 10^3/ul (4.8-10.8) Red Blood Count 4.46 10^6/ul (4.20-5.40) Hemoglobin 13.6 g/dl (12.0-16.0) Hematocrit 39.6 % (37.0-47.0) Mean Corpuscular Volume 88.8 fl (82.0-101.0) Mean Corpuscular Hemoglobin 30.5 pg (29.0-33.0) Mean Corpuscular Hemoglobin Concent 34.3 g/dl (32.0-37.0) Red Cell Distribution Width 11.9 % (11.5-14.5) Platelet Count 228 10^3/UL (140-415) Mean Platelet Volume 10.1 fl (7.4-10.4) Immature Granulocytes % 0.700 % (0.001-0.429) Neutrophils % % (39.0-77.0) Segmented Neutrophils % (Manual) 41 % (39-77) Band Neutrophils % (Manual) 13 % (0-4) Lymphocytes % % (15.0-51.0) Lymphocytes % (Manual) 37 % (15-51) Monocytes % % (0.0-11.0) Monocytes % (Manual) 9 % (0-11) Eosinophils % % (0.0-7.0) Basophils % % (0.0-2.0) Nucleated Red Blood Cells % 1 % (0-0) Immature Granulocytes # 0.040 10^3/ul (0.0-0.031) Neutrophils # 10^3/ul (1.6-7.5) Neutrophils # (Manual) 2.5 10^3/ul (1.6-7.5) Band Neutrophils # 0.7 10^3/ul (0.0-0.6) Lymphocytes (Manual) 2.2 10^3/ul (0.8-2.9) Lymphocytes # 10^3/ul (0.8-2.9) Monocytes # 10^3/ul (0.3-0.9) Monocytes # (Manual) 0.5 10^3/ul (0.3-0.9) Eosinophils # 10^3/ul (0.0-0.5) Basophils # 10^3/ul (0.0-0.1) Nucleated Red Blood Cells # 10^3/ul (0.0-0.0) Platelet Estimate NORMAL Sodium Level 137 mmol/L (135-144) Potassium Level 4.5 mmol/L (3.5-5.1) Chloride Level 102 mmol/L (97-110) Carbon Dioxide Level 27 mmol/L (21-31) Anion Gap 8 (5-13) Blood Urea Nitrogen 15 mg/dl (7-20) Creatinine 0.58 mg/dl (0.44-1.00) Est Glomerular Filtrat Rate mL/min > 60 mL/min (>60) Glucose Level 229 mg/dl (70-220) Calcium Level 8.5 mg/dl (8.4-10.2) KATRIN CORRAL NP Feb 06, 2019 10:58
--- NOTE | 2019-02-06 11:25 | PN ---
Date/Time of Note Date/Time of Note DATE: 02/06/19 TIME: 11:23 Assessment/Plan Lines/Catheters IV Catheter Type (from Nrs): Mid Line Assessment/Plan Chief Complaint/Hosp Course 1. Splenic flexure colitis status post colonoscopy with pathology showing ischemic colitis. Etiology unknown (low flow state, infectious, inflammatory, other). Leukocytosis with bandemia. Stool + coliforms; wbc and bandemia improved; abdominal pain resolved; clinically improving -continue soft diet -Judicious fluid management -. Antibiotics > per ID -cont close monitoring -Stop smoking -dc ok from surgical standpoint highly recommend follow-up with GI 2. Diarrhea, blood per rectum, anemia secondary to above: Resolved 3. Leukocytosis secondary to above: Resolved 4. GERD -Nutrition and medication optimization -Stop smoking -Lifestyle optimization 5. Dysuria with bacteruria -per medical team Thank you. Patient seen and examined in collaboration with Dr. Reddy Sierra. Subjective 24 Hr Interval Summary Feels much better. Original abdominal pain is gone. Tolerating diet. + Bowel function. No fevers, chills, sob, congested cough, cp, palpitations, rivera, dizziness, nausea, vomiting, diarrhea, dysuria. Exam/Review of Systems Vital Signs Vitals Vital Signs Date Temp Pulse Resp B/P (MAP) Pulse Ox O2 O2 Flow FiO2 Time Delivery Rate 02/06/19 Nasal 2.0 08:00 Cannula 02/06/19 98.8 88 18 113/71 96 08:00 (85) Intake and Output 02/05/19 02/05/19 02/06/19 1515:00 23:00 07:00 IntakeIntake Total 300 ml 350 ml 200 ml BalanceBalance 300 ml 350 ml 200 ml Exam Free Text/Dictation Constitutional: alert, oriented; No distress Psych: anxiety; No confusion Head: normocephalic, atraumatic Eyes: nl conjunctiva, EOMI, PERRL; No icteric ENMT: nl external ears & nose, mucosa pink and moist Neck: supple, non-tender; No jvd Respiratory: normal air movement; No congested cough, No labored breathing, No wheezing Cardiovascular: regular rate and rhythm; No edema Gastrointestinal: soft, nontender; min distended No rebound or guarding Musculoskeletal: nl extremities to inspection; No joint tenderness Extremities: normal pulses; No calf tenderness, No edema Neurological: nl mental status, nl speech, nl strength Skin: nl turgor; No rash or lesions, No diaphoresis, No laceration Lymph: nl lymph nodes Results Result Diagram: 02/06/19 0610 02/06/19 0610 RICHMOND PERERA NP Feb 06, 2019 11:25
[2019-02-06 14:00] VITALS: BP 124/64; PULSE 96; RESP 18
[2019-02-07] MEDS ORDERED: LEVOFLOXACIN 500 MG TAB PO SCH (06:00)
== END 2019-02-06 18:59 | disposition home or self-care (01) | DRG 394 ==
LOC: E/R 23:12 → PP2 01-27 03:17
PROVIDERS: ADMIT Family Medicine; ATTEND Family Medicine
PROC: 0DBL8ZX Excision of Transverse Colon, Via Natural or Artificial Opening Endoscopic, Diagnostic (ICD-10-PCS; 2019-01-28)
PROC: 0DBM8ZX Excision of Descending Colon, Via Natural or Artificial Opening Endoscopic, Diagnostic (ICD-10-PCS; 2019-01-28)
PROC: 0DBK8ZX Excision of Ascending Colon, Via Natural or Artificial Opening Endoscopic, Diagnostic (ICD-10-PCS; principal; 2019-01-28 13:00)
DX: K55.039 Acute (reversible) ischemia of large intestine, extent unspecified (principal); K62.5 Hemorrhage of anus and rectum; K50.111 Crohn's disease of large intestine with rectal bleeding; K21.9 Gastro-esophageal reflux disease without esophagitis; K29.50 Unspecified chronic gastritis without bleeding; B18.2 Chronic viral hepatitis C; E78.5 Hyperlipidemia, unspecified; I10 Essential (primary) hypertension; F41.9 Anxiety disorder, unspecified; F17.200 Nicotine dependence, unspecified, uncomplicated; E66.9 Obesity, unspecified; Z68.22 Body mass index [BMI] 22.0-22.9, adult
CPT/HCPCS: 36415; 70450; 71045; 74176; 75635; 80048; 80053; 80061; 80307; 81001; 82270; 83036; 83690; 84145; 84443; 84484; 85025; 85610; 85651; 85730; 86021; 86140; 86674; 86706; 86803; 87045; 87075; 87086; 87205; 87340; 88305; 93005; 96374; 96375; C9113; J0360; J0744; J1170; J2270; J2405; J2543; J2920; J7030; J7040; J7042; J7512; Q9967

== ENCOUNTER 2019-03-08 22:39 | Emergency (ER) | payer MEDICARE, OTHER ==
[~2019-03-08] VITALS: Ht 167.6 cm; Wt 57.7 kg
[~2019-03-08 22:39] MED LIST changes: +AMLO2.5T78 PO; +AMOX1TAB10 PO; +ATOR40TA68 PO; -DICYCLOMINE; +HYDR-3601 PO; +HYDR-4011 PO; +HYOS0.1297 SL; +IBUP-1561 PO; +L.AC460C PO; +LEVO500T48 PO; +MULT-843 PO; -NAPROXEN; -VITAMINS; +ZINC220C5 PO
[2019-03-08 22:40] VITALS: Ht 167.6 cm; Wt 57.7 kg
[2019-03-08] MEDS ORDERED: IBUPROFEN 600 MG TAB PO ONE (23:30)
[2019-03-08] MEDS ORDERED: HYDROCODONE/APAP (5/325) TAB PO ONE (23:30)
--- NOTE | 2019-03-09 01:26 | ERD ---
ER Documentation Chief Complaint Chief Complaint rt ankle pain, " I missed the last step. I heard a pop". lt low ext abrassi HPI 68-year-old female with history of osteoporosis, presents to the emergency department complaining of severe right ankle pain, 10/10 severity, which onset just prior to arrival after injury. The patient was walking in her apartment down the stairs when she accidentally missed the last step and twisted the right ankle. She denies any falls, head injury, loss of consciousness, or other symptoms at this time. She took no medication for relief of symptoms prior to arrival. ROS All systems reviewed and are negative except as per history of present illness. Medications Home Meds Active Scripts Hydrocodone/Acetaminophen ([place] 5-325 Tablet) 1 Each Tablet, 1 TAB PO Q6H PRN for PAIN, #7 TAB Prov:ASPEN SHOEMAKER PA-C 03/09/19 Ibuprofen* (Motrin*) 400 Mg Tab, 400 MG PO Q6, #30 TAB Prov:ASPEN SHOEMAKER PA-C 03/09/19 Multivits,Ca,Minerals/Iron/FA (Thera M Plus Tablet) 1 Each Tablet, 1 TAB PO DAILY, #30 TAB Prov:CORRAL,KATRIN V. HEAVY DUTY MECHANIC 02/06/19 L Acidophil/B Lactis/B Longum (FLORAJEN3 CAPSULE) 460 Mg Capsule, 1 EACH PO BID, #60 CAP Prov:CORRAL,KATRIN V. HEAVY DUTY MECHANIC 02/06/19 Zinc Sulfate* (Zinc Sulfate*) 220 Mg Cap, 220 MG PO DAILY, #30 CAP Prov:CORRAL,KATRIN V. HEAVY DUTY MECHANIC 02/06/19 Hydrocodone Bit-Acetaminophen (Hydrocodone Bit-APAP) 5-325MG Tablet, 1 TAB PO Q6H PRN for .MOD PAIN 4-6, #15 TAB Prov:CORRAL,KATRIN V. HEAVY DUTY MECHANIC 02/06/19 Atorvastatin* (Atorvastatin*) 40 Mg Tablet, 20 MG PO HS, #30 TAB Prov:CORRAL,KATRIN V. HEAVY DUTY MECHANIC 02/06/19 Amlodipine Besylate* (Amlodipine Besylate*) 2.5 Mg Tablet, 5 MG PO DAILY, #30 TAB Prov:CORRAL,KATRIN V. HEAVY DUTY MECHANIC 02/06/19 Hyoscyamine Sulfate* (Hyoscyamine Sulfate*) 0.125 Mg Tab.subl, 0.125 MG SL Q4H PRN for ABDOMINAL CRAMPS, #30 TAB Prov:CORRALVIPULA V. HEAVY DUTY MECHANIC 02/06/19 Levofloxacin* (Levaquin*) 500 Mg Tablet, 500 MG PO DAILY@06 for 7 Days, #7 TAB Prov:CORRALRENNYKATRIN V. HEAVY DUTY MECHANIC 02/06/19 Amoxicillin/Potassium Clav (Amox-Clav 875-125 mg Tablet) 875-125 mg Tab, 875 MG PO BID for 7 Days, #14 TAB Prov:CORRALRENNYKATRIN V. HEAVY DUTY MECHANIC 02/06/19 Allergies Allergies: Coded Allergies: Iron Analogues (Unverified Allergy, Mild, 03/08/19) PMhx/Soc History of Surgery: Yes (Tubal ligation, ovaries removal, surgical removal of IUD) Anesthesia Reaction: No Hx Neurological Disorder: Yes (Vertigo) Hx Respiratory Disorders: No Hx Cardiac Disorders: No Hx Psychiatric Problems: Yes (Anxiety attacks) Hx Miscellaneous Medical Probl: No Hx Alcohol Use: No Hx Substance Use: Yes (Hx of heroin usage) Hx Tobacco Use: Yes Smoking Status: Current every day smoker FmHx Family History: No diabetes Physical Exam Vitals Vital Signs Date Temp Pulse Resp B/P (MAP) Pulse Ox O2 O2 Flow FiO2 Time Delivery Rate 03/09/19 98.1 72 18 144/74 96 03:18 (97) 03/08/19 96.9 98 20 161/77 95 22:40 (105) Physical Exam Const: No acute distress Head: Atraumatic Eyes: Normal Conjunctiva ENT: Normal External Ears, Nose and Mouth. Neck: Full range of motion. No meningismus. Resp: No respiratory distress. Skin: No petechiae or rashes Ext: There is tenderness palpation of the right lateral malleolus with erythema and edema. There is right calf tenderness. No obvious deformity or open fracture. Patient is neurovascularly intact to the right lower extremity. Neur: Awake and alert Psych: Normal Mood and Affect Results 24 hrs Current Medications Medications Dose Sig/Rosangela Start Time Status Last (Trade) Ordered Route PRN Stop Time Admin Dose Reason Admin 1 tab ONCE ONCE 03/08/19 DC 03/08/19 Acetaminophen PO 23:30 23:15 / 03/08/19 23:31 Hydrocodone Bitart ([place] (5/325)) Ibuprofen 600 mg ONCE ONCE 03/08/19 DC 03/08/19 (Motrin) PO 23:30 23:15 03/08/19 23:31 [place] [address] Radiology Main Line: [phone] DIAGNOSTIC IMAGING REPORT Patient: REBECCA ALFRED : 1950 Age: 68 Sex: F MR #: [id number] DOS: 03/08/19 0000 Ordering MD: ASPEN SHOEMAKER PA-C Location: [facility] Room/Bed: PROCEDURE: XR Ankle. CLINICAL INDICATION: Pain TECHNIQUE: AP, oblique and lateral views of the right ankle were obtained. COMPARISON: None. FINDINGS: There is a slightly displaced fracture of the distal fibula at the base of the lateral malleolus. The tibia appears intact. No appreciable widening of the mortise or evidence of joint dislocation. The lateral soft tissues are swollen. IMPRESSION: Slightly displaced fracture at the base of the lateral malleolus. RPTAT: [facility] Physician Birgit Date Time Electronically viewed and signed by Physician Birgit on 03/09/2019 01:36 xB/ CC: ASPEN SHOEMAKER PA-C [id number] [place] [address] Radiology Main Line: [phone] DIAGNOSTIC IMAGING REPORT Patient: REBECCA ALFRED : 1950 Age: 68 Sex: F MR #: [id number] DOS: 03/08/19 0000 Ordering MD: ASPEN SHOEMAKER PA-C Location: [facility] Room/Bed: PROCEDURE: US Lower extremity venous. CLINICAL INDICATION: Right lower extremity pain TECHNIQUE: Multiple sonographic images of the right lower extremity deep venous system obtained utilizing grayscale, color-flow, compressive sonography and doppler imaging with augmentation. The images were reviewed on a PACS workstation. COMPARISON: None. FINDINGS: There is normal compressibility and flow within the right common femoral, deep femoral, superficial femoral, posterior tibial and peroneal veins. Right popliteal vein not visualized due to difficulties in patient positioning. IMPRESSION: No sonographic evidence for deep venous thrombosis. RPTAT: [facility] Physician Birgit Date Time Electronically viewed and signed by Physician Birgit on 03/09/2019 01:32 xB/ CC: ASPEN SHOEMAKER PA-C [id number] [place] [address] Radiology Main Line: [phone] DIAGNOSTIC IMAGING REPORT Patient: REBECCA ALFRED : 1950 Age: 68 Sex: F MR #: [id number] DOS: 03/08/19 0000 Ordering MD: ASPEN SHOEMAKER PA-C Location: [facility] Room/Bed: PROCEDURE: XR right foot. CLINICAL INDICATION: Pain TECHNIQUE: AP, lateral and oblique views of the right foot were obtained. The images were reviewed on a PACS workstation. COMPARISON: None. FINDINGS: There is a mildly displaced fracture of the distal fibula. No additional fractures are identified within the foot. Joint spaces and alignment appear maintained. IMPRESSION: Slightly displaced fracture of the distal fibula. RPTAT: [facility] Physician Birgit Date Time Electronically viewed and signed by Physician Birgit on 03/09/2019 01:35 xB/ CC: ASPEN SHOEMAKER PA-C [id number] [place] [id number] Radiology Main Line: [phone] DIAGNOSTIC IMAGING REPORT Patient: REBECCA ALFRED : 1950 Age: 68 Sex: F [id number]: 03/08/19 0000 Ordering MD: ASPEN SHOEMAKER PA-C Location: [facility] Room/Bed: PROCEDURE: XR Tibia and Fibula. CLINICAL INDICATION: Right lower extremity pain TECHNIQUE: AP and lateral views of the right tibia and fibula were obtained. COMPARISON: None. FINDINGS: There is a slightly displaced fracture of the distal fibular metadiaphysis. There is associated swelling of the overlying soft tissues. The tibia appears intact. IMPRESSION: Slightly displaced fracture of the distal fibular metadiaphysis. RPTAT: [facility] Physician Birgit Date Time Electronically viewed and signed by Physician Birgit on 03/09/2019 01:34 xB/ CC: ASPEN SHOEMAKER PA-C [id number] Procedures/MDM 68-year-old female presents to the emergency department complaining of injury to the right lower extremity. X-rays revealed mildly displaced fracture of the distal fibula. Patient required splint for immobilization of fracture. Patient does live with her daughter who is able to provide care for her while she is recovering. Patient states she will be able to follow up with orthopedic phys ician tomorrow. She is given resources to do so. Splint Assessment: Neurovascularly intact post splint placement with good fit. Patient's extremity symptoms have stabilized while they have been evaluated in the department and are appropriate for outpatient follow up. No evidence of compartment syndrome, neurologic injury, vascular injury, open joint, open fracture, tendon laceration, or foreign body. No evidence of life- threatening pathology at time of discharge. Pt/family in agreement with dischar ge plan/diagnosis. Pt/family advised to return immediately with any new or worsening symptoms. Follow-up with primary care physician within the next 1-2 days. Patient's blood pressure was elevated (>120/80) but appears stable without evidence of hypertension emergency or urgency. The patient is to follow-up and pursue outpatient monitoring and therapy with their primary care physician within 1 week and return immediately if they have any new, worsening, or concerning symptoms. Departure Diagnosis: Primary Impression: Closed right ankle fracture Condition: Fair Patient Instructions: Fracture, Ankle (General) ASPEN SHOEMAKER PA-C Mar 09, 2019 01:26
[2019-03-09 03:18] VITALS: BP 144/74; PULSE 72; RESP 18
== END 2019-03-09 03:22 | disposition home or self-care (01) ==
LOC: FTE 22:39
DX: S82.61XA Displaced fracture of lateral malleolus of right fibula, initial encounter for closed fracture (principal); F17.210 Nicotine dependence, cigarettes, uncomplicated; X50.1XXA Overexertion from prolonged static or awkward postures, initial encounter; Y92.9 Unspecified place or not applicable
CPT/HCPCS: 73590; 73630; 93971